=== PATIENT | male | born 1965 | race Caucasian/White ===

== ENCOUNTER 2020-08-14 12:52 | Inpatient (IN) | payer SELFPAY ==
[2020-08-14] VITALS (12 sets, daily range): BP systolic 154–233; BP diastolic 100–137; PULSE 70–96; RESP 17–27; TEMP 36.7–36.8; O2SAT 90–97; BMI 32.3
--- NOTE | 2020-08-14 13:18 | ECG_ITS ---
[facility] Test Date: 2020-08-14 Pat Name: Leo Arredondo Department: Room: Gender: Male Machine Crater: : 1965 Requested By: Sheri Smith I Order Number: [id number] Reading MD: EARNEST MEJIA Measurements Intervals [place] Rate: 100 P: WA: QRS: 31 QRSD: 106 T: 65 QT: 403 QTc: 521 Interpretive Statements SINUS TACHYCARDIA INCOMPLETE RIGHT BUNDLE BRANCH BLOCK [90+ ms QRS DURATION, TERMINAL R IN V1/V2, 40+ ms S IN I/aVL/V4/V5/V6] NONSPECIFIC ST ELEVATION [0.05+ mV ST ELEVATION] ABNORMAL RHYTHM ECG No previous ECG available for comparison Electronically Signed On 08-14-2020 18:35:12 BLANKET WINDER HELPER by EARNEST MEJIA [id number] f
--- NOTE | 2020-08-14 13:18 | XR_ITS ---
WS: [id number] Exam: XR chest 1V portable [id number] Date/Time of Exam: 08/14/2020 1:25 PM Reason For Exam: SOB No priors. There is infiltrate and atelectasis in the right lower lung zone suggesting pneumonia. There may be s ome infiltrate in the left retrocardiac region. No pleural effusions or pneumothorax. Normal cardiome diastinal structures and bony elements. XR/XR chest 1V portable [id number] IMPRESSION: 1. Infiltrate and atelectasis in the right lower lung zone suggesting pneumonia . There may also be some infiltrate in the left retrocardiac region.
--- NOTE | 2020-08-14 13:39 | W.ED.SOB ---
HPI - SOB/Dyspnea General: Chief Complaint: Shortness of Breath/Dyspnea Stated Complaint: CP Time Seen by Provider: 08/14/20 13:08 Source: patient and family () Mode of arrival: ambulatory Limitations: no limitations History of Present Illness: HPI Narrative: The patient is a 55-year-old male with no prior medical history who presents to the emergency department with chest pain and shortness of breath. He has had the symptoms going on for about a month but in the last 2 days it has been much worse. He is unable to complete full sentences and has significant orthopnea. He does not go to the doctor and has not seen a physician for a long time. He is here to be evaluated for these. Chest pain is nonradiating. MD elicited complaint: shortness of breath and chest pain Associated symptoms: Reports chest pain; Deny abdominal pain, fever(s), nausea, palpitations, polydipsia, polyuria or vomiting Review of Systems General: Reports: 10 or more systems reviewed and unremarkable except in HPI and below Const: Denies: fever(s), chills or body aches Eyes: Denies: change in vision or blurry vision ENMT: Denies: throat pain, enlarged tonsils, odynophagia, hoarseness, mouth pain or swelling of lips/tongue Card: Reports: chest pain; Denies: palpitations, irregular heart rhythm, edema or swelling of feet/ankles Resp: Reports: dyspnea; Denies: productive cough or non-productive cough GI: Denies: abdominal pain, nausea or vomiting : Denies: flank pain, dysuria, urinary frequency, urinary urgency or urinary hesitancy Musc: Denies: neck pain, back pain or extremity swelling Skin/Breast: Denies: rash, pruritus or erythema Neuro: Denies: headache(s), numbness in extremities or weakness in extremities Endo: Denies: polyuria, polydipsia or tired all the time Physical Exam Const: COMMON NORMALS: no acute distress, average body habitus, patient oriented x3, no limitations, healthy appearing, alert and well nourished HENMT: COMMON NORMALS: normocephalic, atraumatic and moist oral mucous membranes HEAD & SCALP: normocephalic and atraumatic Neck/C-Spine: COMMON NORMALS: no meningeal signs and no JVD Resp: COMMON NORMALS: No retractions, No use of accessory muscles and percussion normal EFFORT & INSPECTION: Yes tachypneic and Yes labored AUSCULTATION: rales and diminished lung sounds PERCUSSION: percussion normal Cardio: COMMON NORMALS: no JVD, regular rhythm, S1 normal heart sound present, S2 normal heart sound present, No gallops present (Cardio), No clicks present (Cardio), No rub (Cardio) and Peripheral pulses 2+ throughout RATE: tachycardic RHYTHM: regular rhythm HEART SOUNDS: S1 normal heart sound present and S2 normal heart sound present PERIPHERAL PULSES: Peripheral pulses 2+ throughout GI: COMMON NORMALS: Normal to inspection, nondistended, normoactive bowel sounds present, Soft to palpation, non-tender, No hepatosplenomegaly present, no masses and no bruits PALPATION: Yes Soft to palpation and Yes No hepatosplenomegaly present Extremity: COMMON NORMALS: normal to inspection, full ROM, capillary refill normal, no calf tenderness and no pedal edema Neuro: COMMON NORMALS: patient oriented x3 SENSORIUM/ORIENTATION: Yes alert MENINGEAL SIGNS: Yes no meningeal signs Skin: COMMON NORMALS: no rashes or lesions noted, no wounds, turgor normal, no jaundice, no petechiae and no mottling GENERAL SKIN EXAM: no rashes or lesions noted and turgor normal Course Reevaluation(s): Reevaluation #1: Discussed his lab and imaging findings with him. Also discussed that he has CHF and since this is a new diagnosis I advised that he be admitted to the hospital for further work-up and evaluation of his cardiac status including an echocardiogram. Patient and his voiced understanding and they are in agreement with the plan. Time: 19:00 Consultations: Consultation #1: Discussed the patient with Dr. Echevarria, hospitalist and he kindly accepted patient to his service. Time: 19:30 Vital Signs: Vital signs: Vital Signs Temperature 98.3 F 08/14/20 21:25 Pulse Rate 85 08/14/20 21:25 Respiratory Rate 27 H 08/14/20 21:25 Blood Pressure 177/111 08/14/20 21:25 Pulse Oximetry 91 08/14/20 21:25 MDM - SOB/Dyspnea MDM Narrative: Medical decision making narrative: This pleasant gentleman presents with his to the emergency department with complaints of significant shortness of breath and chest pain. He has no prior past medical history and on evaluation in the emergency department he is diagnosed with congestive heart failure. He had severely elevated blood pressures, significantly elevated proBNP and chest x-ray findings consistent with CHF. He was given a dose of intravenous furosemide as well as potassium chloride as he had mildly depressed potassium. He is admitted to the cardiac stepdown unit for further evaluation and management. Medical Records: Attestation: I reviewed the patient's medical records. Lab Data: Attestation: I reviewed the patient's lab results. Labs: Lab Results 08/14/20 08/14/20 08/14/20 Range/Units 13:21 13:21 13:21 WBC 9.0 (4.0-10.0) 10^3/ uL RBC 4.84 (4.1-5.3) 10^6/u L Hgb 13.7 (11.7-16.6) g/dL Hct 40.7 L (42.0-52.0) % MCV 84.1 (80-94) fL MCH 28.3 (28.0-34.0) pg MCHC 33.7 (30.0-36.0) g/dL RDW 13.3 (12.1-15.1) % Plt Count 207 (130-400) 10^3/c mm MPV 11.8 H (7.4-10.4) fL Neut % (Auto) 75.8 % Lymph % (Auto) 16.6 % [place] % (Auto) 5.8 % Eos % (Auto) 1.0 % Baso % (Auto) 0.4 % Neut # (Auto) 6.85 (1.8-7.7) 10^3/u L Lymph # (Auto) 1.5 (0.8-4.8) 10^3/u L [place] # (Auto) 0.5 (0.2-0.9) 10^3/u L Eos # (Auto) 0.1 (0.0-0.8) 10^3/u L Baso # (Auto) 0.0 (0.0-0.1) 10^3/u L Nucleated RBC % (a uto) 0 % Nucleated RBCs # 0.0 /100WBC D-Dimer 0.54 (0-0.59) ug/mIFE U Specimen Type Sample Site ABG pH (7.35-7.45) ABG pCO2 (35-45) mmHg ABG pO2 (80.0-100.0) mmH g ABG HCO3 (22-26) mmol/L ABG Base Excess (-2.0-2.0) mmol/ L Mandeep Test Hematocrit (42-52) % O2 Delivery Device Ski Patrol Officer ID Sodium Cancelled Potassium Cancelled Chloride Cancelled Carbon Dioxide Cancelled Anion Gap Cancelled BUN Cancelled Creatinine Cancelled GFR Calculation Cancelled Glucose Cancelled Calculated Osmolal ity Cancelled Calcium Cancelled Total Bilirubin Cancelled AST Cancelled ALT Cancelled Alkaline Phosphata se Cancelled Troponin T Baselin e (0-15) ng/L Troponin T 120 Min [place] (0-15) ng/L Delta Troponin T (0-10) ABS# Troponin T Hi Sens 6Hr (0-15) ng/L Troponin T Hi Sens 6Hr Delta (0-12) ng/L NT-Pro-B Natriuret Pep Cancelled Total Protein Cancelled Albumin Cancelled Globulin Cancelled 08/14/20 08/14/20 08/14/20 Range/Units 13:21 14:15 15:32 WBC (4.0-10.0) 10^3/ uL RBC (4.1-5.3) 10^6/u L Hgb (11.7-16.6) g/dL Hct (42.0-52.0) % MCV (80-94) fL MCH (28.0-34.0) pg MCHC (30.0-36.0) g/dL RDW (12.1-15.1) % Plt Count (130-400) 10^3/c mm MPV (7.4-10.4) fL Neut % (Auto) % Lymph % (Auto) % [place] % (Auto) % Eos % (Auto) % Baso % (Auto) % Neut # (Auto) (1.8-7.7) 10^3/u L Lymph # (Auto) (0.8-4.8) 10^3/u L [place] # (Auto) (0.2-0.9) 10^3/u L Eos # (Auto) (0.0-0.8) 10^3/u L Baso # (Auto) (0.0-0.1) 10^3/u L Nucleated RBC % (a uto) % Nucleated RBCs # /100WBC D-Dimer (0-0.59) ug/mIFE U Specimen Type Arterial Sample Site Radial, left ABG pH 7.50 H (7.35-7.45) ABG pCO2 40.9 (35-45) mmHg ABG pO2 59.3 L (80.0-100.0) mmH g ABG HCO3 32.0 H (22-26) mmol/L ABG Base Excess 8.1 H (-2.0-2.0) mmol/ L Mandeep Test Pos Hematocrit 42.5 (42-52) % O2 Delivery Device Room air Ski Patrol Officer ID jmn Sodium 138 Potassium 3.1 L Chloride 99 Carbon Dioxide 31 H Anion Gap 11.1 BUN 19 Creatinine 1.3 H GFR Calculation 56.9 L Glucose 185 H Calculated Osmolal ity 293 Calcium 9.1 Total Bilirubin 0.4 AST 20 ALT 21 Alkaline Phosphata se 92 Troponin T Baselin e 52 H (0-15) ng/L Troponin T 120 Min [place] (0-15) ng/L Delta Troponin T (0-10) ABS# Troponin T Hi Sens 6Hr (0-15) ng/L Troponin T Hi Sens 6Hr Delta (0-12) ng/L NT-Pro-B Natriuret Pep 6903 H Total Protein 6.3 L Albumin 3.8 Globulin 2.5 08/14/20 08/14/20 Range/Units 15:48 19:34 WBC (4.0-10.0) 10^3/ uL RBC (4.1-5.3) 10^6/u L Hgb (11.7-16.6) g/dL Hct (42.0-52.0) % MCV (80-94) fL MCH (28.0-34.0) pg MCHC (30.0-36.0) g/dL RDW (12.1-15.1) % Plt Count (130-400) 10^3/c mm MPV (7.4-10.4) fL Neut % (Auto) % Lymph % (Auto) % [place] % (Auto) % Eos % (Auto) % Baso % (Auto) % Neut # (Auto) (1.8-7.7) 10^3/u L Lymph # (Auto) (0.8-4.8) 10^3/u L [place] # (Auto) (0.2-0.9) 10^3/u L Eos # (Auto) (0.0-0.8) 10^3/u L Baso # (Auto) (0.0-0.1) 10^3/u L Nucleated RBC % (a uto) % Nucleated RBCs # /100WBC D-Dimer (0-0.59) ug/mIFE U Specimen Type Sample Site ABG pH (7.35-7.45) ABG pCO2 (35-45) mmHg ABG pO2 (80.0-100.0) mmH g ABG HCO3 (22-26) mmol/L ABG Base Excess (-2.0-2.0) mmol/ L Mandeep Test Hematocrit (42-52) % O2 Delivery Device Ski Patrol Officer ID Sodium Potassium Chloride Carbon Dioxide Anion Gap BUN Creatinine GFR Calculation Glucose Calculated Osmolal ity Calcium Total Bilirubin AST ALT Alkaline Phosphata se Troponin T Baselin e (0-15) ng/L Troponin T 120 Min [place] 47.23 H (0-15) ng/L Delta Troponin T -4.77 L (0-10) ABS# Troponin T Hi Sens 6Hr 60.93 H (0-15) ng/L Troponin T Hi Sens 6Hr Delta 8.93 (0-12) ng/L NT-Pro-B Natriuret Pep Total Protein Albumin Globulin Imaging Data^: CXR: Attestation: I personally reviewed and interpreted this imaging study as follows: Radiologist's impression: [address] [address] XRay Report Signed Patient: Leo Arredondo #: [id number] : 1965Acct#:[id number] Age/Sex: 55 / MADM Date: 08/14/20 Loc: ERRoom/Bed: Attending Dr: Ordering Provider/Ordering MD: Sheri Smith MD, [facility] Date of Service: 08/14/20 Procedure(s): XR chest 1V portable [id number] Accession Number(s): [id number] Report Number: [id number] WS: [id number] Exam: XR chest 1V portable [id number] Date/Time of Exam: 08/14/2020 1:25 PM Reason For Exam: SOB No priors. There is infiltrate and atelectasis in the right lower lung zone suggesting pneumonia. There may be some infiltrate in the left retrocardiac region. No pleural effusions or pneumothorax. Normal cardiomediastinal structures and bony elements. XR/XR chest 1V portable [id number] IMPRESSION: 1. Infiltrate and atelectasis in the right lower lung zone suggesting pneumonia. There may also be some infiltrate in the left retrocardiac region. Dictated By:John Lamar DO Signed By:Jayna Bess Date/Time:08/14/20 1343 DD/ 1341 EKG Data^: EKG 1: Attestation: I personally reviewed and interpreted this EKG as follows: EKG Interpretation Date: 08/14/20 EKG interpretation time: 13:05 Prior EKG tracings: not available for review Interpretation: Atrial fibrillation with RVR. Heart rate 100 bpm. Incomplete right bundle branch block. No ST changes. EKG 2: Attestation: I personally reviewed and interpreted this EKG as follows: EKG Interpretation Date: 08/14/20 EKG interpretation time: 15:25 Prior EKG tracings: available for review Interpretation: Junctional rhythm. Heart rate [address] changes. Discharge Plan Discharge Patient Disposition: Admitted As Inpatient Admit Provider: Rajiv Echevarria Clinical Impression: New onset of congestive heart failure, Hypertensive urgency, Elevated troponin Condition: Stable Coding Level of Care Code ED Gang Punch Operator for Chg Fwd Exam Comprehensive
[2020-08-14 13:45] LABS: Basophils % 0.4 %; Eosinophils # 0.1 10^3/uL (0.0-0.8); Hematocrit 40.7 % (42.0-52.0); Hemoglobin 13.7 g/dL (11.7-16.6); Lymphocytes # 1.5 10^3/uL (0.8-4.8); Lymphocytes % 16.6 %; Mean Corpuscular HGB Conc 33.7 g/dL (30.0-36.0); Mean Corpuscular Hemoglobin 28.3 pg (28.0-34.0); Mean Corpuscular Volume 84.1 fL (80-94); Mean Platelet Volume 11.8 fL (7.4-10.4); Monocytes # 0.5 10^3/uL (0.2-0.9); Monocytes % 5.8 %; Neutrophils # 6.85 10^3/uL (1.8-7.7); Neutrophils % 75.8 %; Nucleated Red Blood Cells % 0 %; Platelet Count 207 10^3/cmm (130-400); Red Blood Count 4.84 10^6/uL (4.1-5.3); Red Cell Distribution Width 13.3 % (12.1-15.1)
[2020-08-14] MEDS: aspirin 81 mg Chew Tablet 324 MG PO (13:51)
[2020-08-14] MEDS: nitroglycerin 1 gm/inch oint Pkt 1 INCH TOPICAL (13:52)
[2020-08-14 14:11] LABS: Troponin(5th) Baseline 52 ng/L (0-15)
[2020-08-14 14:26] LABS: ABG PCO2 40.9 mmHg (35-45); Arterial Blood Gas Hematocrit 42.5 % (42-52); Base Excess ABG 8.1 mmol/L (-2.0-2.0); Blood Gas Allen Test Pos; Blood Gas Sample Type Arterial; PO2 ABG 59.3 mmHg (80.0-100.0)
[2020-08-14 14:28] LABS: Blood Gas Sample Site Radial, left; Oxygen Device ROOM AIR
--- NOTE | 2020-08-14 15:18 | ECG_ITS ---
[facility] Test Date: 2020-08-14 Pat Name: Leo Arredondo Department: Room: Gender: Male Direct Marketing Executive: : 1965 Requested By: Sheri Smith I Order Number: [id number] Reading MD: EARNEST MEJIA Measurements Intervals [place] Rate: 86 P: -79 IA: 124 QRS: -6 QRSD: 101 T: 71 QT: 443 QTc: 530 Interpretive Statements JUNCTIONAL RHYTHM WITH OCCASIONAL SUPRAVENTRICULAR PREMATURE COMPLEXES POSSIBLE RIGHT VENTRICULAR CONDUCTION DELAY [RSR (QR) IN V1/V2] PROLONGED QT INTERVAL Compared to ECG 08/14/2020 13:05:07 Junctional rhythm now present Prolonged QT interval now present Atrial fibrillation no longer present Incomplete right bundle-branch block no longer present ST (T wave) deviation no longer present Electronically Signed On 08-14-2020 18:37:47 HARD ROCK MINER BLASTING by EARNEST MEJIA [id number]
[2020-08-14] MEDS: morphine 4 mg/mL SDV 1 mL IVP (16:27)
[2020-08-14] MEDS: ondansetron 2 mg/ML SDV 2 mL 4 MG IVP (16:28)
[2020-08-14 16:49] LABS: Alanine Aminotransferase 21 U/L (0-41); Albumin Level 3.8 g/dL (3.5-5.2); Alkaline Phosphatase 92 IU/L (40-130); Anion Gap 11.1 (5-19); Aspartate Amino Transferase 20 U/L (0-40); Blood Urea Nitrogen 19 mg/dL (6-20); Calcium 9.1 mg/dL (8.5-10.5); Carbon Dioxide 31 mmol/L (22-29); Chloride 99 mmol/L (98-107); Globulin 2.5 g/dL (1.3-4.6); Glomerular Filtration Rate 56.9 mL/min (90-130); Glucose 185 mg/dL (65-115); NT Pro B Type Natriuretic Pept 6903 pg/mL (0-125); Osmolality Calculated 293 mOsm/kg (285-295); Potassium 3.1 mmol/L (3.5-5.1); Sodium 138 mmol/L (136-145); Total Bilirubin 0.4 mg/dL (0.15-1.2); Total Protein 6.3 g/dL (6.6-8.7)
[2020-08-14 17:18] LABS: Troponin 5 2HR 47.23 ng/L (0-15)
[2020-08-14 17:30] LABS: Troponin 5 2HR Delta -4.77 ABS# (0-10)
[2020-08-14 18:29] LABS: D Dimer 0.54 ug/mIFEU (0-0.59)
--- NOTE | 2020-08-14 18:43 | PC.NURSE ---
EKG completed in triage.
[2020-08-14] MEDS: FUROsemide 10 mg/mL SDV 10mL 80 MG IVP (18:53)
--- NOTE | 2020-08-14 19:18 | ECG_ITS ---
[facility] Test Date: 2020-08-14 Pat Name: Leo Arredondo Department: Room: 111 Gender: Male Medical Office Clerk: : 1965 Requested By: Sheri Smith I Order Number: [id number] Jayant MD: Tomer Garcia M.D. Measurements Intervals [place] Rate: 88 P: 70 DC: 150 QRS: 22 QRSD: 97 T: 70 QT: 382 QTc: 463 Interpretive Statements SINUS RHYTHM WITH OCCASIONAL SUPRAVENTRICULAR PREMATURE COMPLEXES INCOMPLETE RIGHT BUNDLE BRANCH BLOCK [90+ ms QRS DURATION, TERMINAL R IN V1/V2, 40+ ms S IN I/aVL/V4/V5/V6] NONSPECIFIC T-WAVE ABNORMALITY Compared to ECG 08/14/2020 15:25:13 Incomplete right bundle-branch block now present T-wave abnormality now present Junctional rhythm no longer present Prolonged QT interval no longer present Electronically Signed On 08-15-2020 17:15:12 ASIC ENGINEER by Tomer Garcia M.D. [id number]
--- NOTE | 2020-08-14 19:34 | P.HP_ITS ---
Providers/Chief Complaint Chief Complaint: CP History of Present Illness Leo Arredondo is a 55 year old male who does not have any significant past medical history presented today with chief complaint of worsening shortness of breath. Patient is stating that his shortness of breath started worsening about 2 to 3 months ago, it has gradually gotten worse to the point of orthopnea and PND, he has not observed his weight but thinks he is more bloated and gained some fluid weight, he did not experience any chest pain, fever, productive cough recent diarrhea. He does not follow a typical diet. Has not seen a PCP in a long time, does not take any medication at home. In last 2 to 3 days his shortness of breath has gotten worse and that is what prompted his visit to the ER. He was saturating well on room air, blood pressure 232/130mmhg, diagnostics in the ER revealed new onset congestive heart failure for which she was given IV Lasix, potassium was repleted in the ER, VERNON noted, ABG showed respiratory alkalosis, no sign of sepsis, chest x-ray shows bilateral vascular congestion, atelectasis of right lung base, pneumonia not ruled out I would request procalcitonin level, holding off on antibiotics, D-dimer unremarkable, EKG showed incomplete right bundle branch block otherwise no ischemic or infarctive changes, troponin with negative delta, when entered the room patient was eating chips, chocolate and diet soda In the ER he received 80 mg of IV Lasix, 1 and topical nitroglycerin, Zofran 4 mg by the time I saw him he was also getting normal saline, aspirin 324 mg, normal saline was discontinued Review of Systems Const: Denies: fever(s) or chills Eyes: Denies: change in vision ENMT: Denies: throat pain Card: Reports: swelling of feet/ankles, dyspnea on exertion and orthopnea; Denies: chest pain Resp: Reports: dyspnea and non-productive cough GI: Denies: abdominal pain : Denies: flank pain Musc: Reports: muscle cramps; Denies: neck pain Skin/Breast: Denies: lesions Neuro: Denies: headache(s) Psych: Denies: anxiety Endo: Denies: polyuria Momo/Lymph: Denies: easy bruising All/Imm: Denies: urticaria Medications/Allergies Home Medications Medication Instructions Recorded Confirmed Last Taken Type aspirin [Aspir-81] 81 mg PO DAILY@0800 08/14/20 08/14/20 Unknown History gjsqoayjoks-zsgmnlbyqlx-uqoyeu 2 ea PO Q6H PRN 08/14/20 08/14/20 08/13/20 History [Prabha-Ocate Plus Cold (PE)] Allergies Allergy/AdvReac Type Severity Reaction Status Date / Time No Known Allergies Allergy Verified 08/14/20 21:54 PFSH Acute PFSH: Surgical History (Updated 08/14/20 @ 22:22 by Rajiv Echevarria MD) H/O knee surgery Hx laparoscopic cholecystectomy Family History (Updated 08/14/20 @ 22:24 by Rajiv Echevarria MD) Father Family history of premature coronary artery disease age 64 due to [place] Other CAD (coronary artery disease) Social History (Updated 08/14/20 @ 22:24 by Rajiv Echevarria MD) Smoking and tobacco status: heavy tobacco smoker cigarettes [ Other cigarette details: Half pack a day ] Alcohol intake: never Substance/Drug Use: never Household members: significant other Housing: House Vitals/I&O/Wt Last Vital Signs Pulse 85 08/14/20 18:43 Resp 18 08/14/20 18:43 BP 157/108 08/14/20 18:43 Pulse Ox 94 08/14/20 18:43 Weight last 48 hrs Weight 111.13 kg Physical Exam Narrative: EXAM NARRATIVE: Middle-age obese male Appears more than stated age, he was eating chips and chocolate and diet soda when I entered the room No active chest pain or shortness of breath He was saturating well on room air S1, S2 no murmur appreciated Abdomen soft distended bloated central obesity No neurological deficit GCS 15 No acute respite distress, bilateral breath sounds with mild rhonchi at the bases Lower extremity 1+ trace edema bilaterally EOMI, PERRLA Seems to have poor insight, flat affect No skin cellulitis gangrene or ulcer Data : 08/14/20 13:21 08/14/20 15:32 A&P Assessment and plan (1) New onset of congestive heart failure: Status: Acute (2) Hypertensive urgency: Status: Acute (3) Hypokalemia: Status: Acute (4) VERNON (acute kidney injury): Status: Acute Additional A&P Information New onset CHF This most likely is secondary to hypertensive urgency Currently blood pressure 181/119 after getting topical nitroglycerin and 80 mg of IV Lasix in the ER I would reduce mean arterial pressure 25% in next 12 to 16 hours Chest x-ray shows pulmonary edema, right lower lobe atelectasis, pneumonia has not been ruled out, will request procalcitonin level hold off on antibiotics, He is Lasix na?ve, would use 40 mg of Lasix daily Echo in the morning, obtain lipid panel, TSH and A1c level EKG showing incomplete right bundle branch block no ischemic or infarctive changes negative delta troponin Hypertensive urgency Mean arterial pressure reduction 25% on day 1 Currently blood pressure responding very well to Lasix and topical nitroglycerin Monitor on telemetry floor if he will require any infusion No active chest pain, D-dimer unremarkable Acute kidney injury Most likely is cardiorenal in nature anticipating improvement with diuresis no signs of dysuria or urine retention Avoid CALIXTO inhibitor for now Hypokalemia with hypertension I will get renin/aldosterone ratio patient does not take any medications at home, no recent diarrhea or vomiting Denies daily alcohol use Full code Cardiac diet DVT prophylaxis Heparin Attestations Medical Necessity Statement*: Anticipating discharge in less than 48 hours currently need monitoring for CHF new onset Time Spent in Patient Care: (>than 50% of time spent in counselling and/or direct pt care on unit) . 50mins Coding Level of Care Code Acute Corrective And Manual Arts Therapist for Woo [place] Diagnoses New onset of congestive heart failure I50.9 Hypertensive urgency I16.0 Hypokalemia E87.6 VERNON (acute kidney injury) N17.9
[2020-08-14] MEDS: lidocaine 1% 5 ML in potassium chloride premix 100 ML 25 ML IV (19:54)
[2020-08-14] MEDS: sodium chloride 0.9% 1,000 ML 999 ML IV (19:55)
[2020-08-14 20:02] LABS: Troponin 5 6HR 60.93 ng/L (0-15); Troponin 5 6HR Delta 8.93 ng/L (0-12)
--- NOTE | 2020-08-14 21:41 | PC.NURSE ---
Addendum entered by Marisela Egan RN 08/14/20 21:42: Entered on incorrect patient. Original Note: Patient's sister, Maggi, called stating that she was very frustrated that a doctor had not contacted her to let her know the plan and why the patient has not had her procedure yet.
--- NOTE | 2020-08-14 22:13 | PC.NURSE ---
Dr. Echevarria notified of blood pressure of 181/119, patient is still complaining of shortness of breath, and is asking for Tylenol for a headache. Patient's oxygen saturation is currently 95 % on room air.
[2020-08-14 22:48] LABS: Estmated Average Glucose 117; Hemoglobin A1C 5.7 % (4.0-6.0)
[2020-08-14] MEDS: amlodipine 10 mg Tablet PO (22:50)
[2020-08-14] MEDS: heparin 5,000 unit/mL INJ 1 mL 5000 UNIT SUBCUT (22:50)
[2020-08-14] MEDS: acetaminophen 325 mg Tablet PO (22:50)
[2020-08-14] MEDS: nitroglycerin 1 gm/inch oint Pkt 0.5 INCH TOPICAL (22:51)
[2020-08-14 23:13] LABS: Chol HDL Ratio 4.44 mg/dL (1.0-5.00); Cholesterol 142 mg/dL (0-200); HDL Cholesterol 32 mg/dL (60-100); LDL Cholesterol Calculated 77 mg/dL (50-129); LDL HDL Ratio 2.41 RATIO (0.00-3.22); Triglycerides 166 mg/dL (0-150)
[2020-08-14 23:47] LABS: Thyroid Stimulating Hormone 1.97 uIU/mL (0.27-4.20)
[2020-08-15] VITALS (20 sets, daily range): BP systolic 117–174; BP diastolic 87–124; PULSE 74–96; RESP 14–38; TEMP 36.5–37.1; O2SAT 90–95
--- NOTE | 2020-08-15 01:03 | PC.NURSE ---
Patient's oxygen saturation dropped to76 percent while patient was sleeping. Patient was placed on 2 L NC and is now ranging 90-95 percent.
[2020-08-15] MEDS: acetaminophen 325 mg Tablet PO (05:59)
[2020-08-15] MEDS: nitroglycerin 1 gm/inch oint Pkt 0.5 INCH TOPICAL ×2 (06:00→11:08)
[2020-08-15] MEDS: heparin 5,000 unit/mL INJ 1 mL 5000 UNIT SUBCUT ×3 (06:00→21:42)
--- NOTE | 2020-08-15 06:04 | PC.NURSE ---
Medications were late and given under other delay due to answer call lights in other patient rooms.
[2020-08-15 06:05] LABS: Anion Gap 13.5 (5-19); Blood Urea Nitrogen 20 mg/dL (6-20); Calcium 8.8 mg/dL (8.5-10.5); Carbon Dioxide 30 mmol/L (22-29); Chloride 101 mmol/L (98-107); Glomerular Filtration Rate 48.2 mL/min (90-130); Glucose 112 mg/dL (65-115); Osmolality Calculated 295 mOsm/kg (285-295); Potassium 3.5 mmol/L (3.5-5.1); Sodium 141 mmol/L (136-145)
--- NOTE | 2020-08-15 08:00 | PC.NURSE ---
patient resting in bed at this time. assessment performed and charted. call light within reach no needs identified at this time.
--- NOTE | 2020-08-15 08:13 | US_ITS ---
WS: [id number] ULTRASOUND RENAL TECHNIQUE: Ultrasound examination of both kidneys. CLINICAL INFORMATION: ckd COMPARISON: None. FINDINGS: RIGHT: Simple cyst midpole measuring 1.1 x 1.2 x 1.0 cm. 16 x 19 mm nonobstructing renal parenchymal calculus upper pole. Right kidney is normal in size and appearance. Echogenicity: Normal. Cortical thickness: 1.1 cm; Normal. Hydronephrosis: None. Perinephric fluid: None. Right kidney measures: 11.6 cm x 5.4 cm x 5.0 cm. LEFT: Left kidney is normal in size and appearance. Echogenicity: Normal. Cortical thickness: 1.3 cm; Normal. Hydronephrosis: None. Perinephric fluid: None. Left kidney measures: 10.4 cm x 4.3 cm x 3.7 cm. Normal visualized aorta. Bladder is contracted. Prostate measures 3.9 x 4.1 x 3.2 cm US/US renal BI* [id number] IMPRESSION: 1. No hydronephrosis in either kidney. 2. Simple cyst right kidney measuring 3. Prostate measures 3.9 x 4.1 x 3.2 CM. Recommend correlation PSA.
--- NOTE | 2020-08-15 08:14 | CT_ITS ---
WS: [id number] CT CHEST TECHNIQUE: Noncontrast CT of the chest with coronal and sagittal reformatted images. CLINICAL INFORMATION: RLL infiltrate vs pulmonary edema COMPARISON: None. DLP: 982.[address] scans at [facility] use at least one of these dose optimization techniques: automat ed exposure control; mA and/or kV adjustment per patient size (includes targeted exams where dose is matched to clinical indication); or iterative reconstruction. FINDINGS: Small right and tiny left pleural effusion. Compressive atelectasis in the lung bases. No focal conso lidation. A few patchy opacities in right upper lobe. Recommend correlation for pneumonia. Mild inter stitial edema in the right lower lobe. Cardiomegaly. Prominent anterior mediastinal and hilar lymph nodes nonspecific but likely reactive. C alcified right hilar nodes. No axillary lymphadenopathy. Anterior hypertrophic changes thoracic spine . Adrenal glands are normal. Cholecystectomy clips. Partially visualized right renal calculus. CT/CT chest wo con [id number] IMPRESSION: 1. Small right and tiny left pleural effusions with compressive atelectasis in the lung bases. Mild interstitial edema in the right greater than left lower l obes. 2. A few small patchy opacities in the right upper lobe. Recommend correlation for pneumonitis. No focal consolidation. 3. Cardiomegaly. 4. Slightly enlarged anterior mediastinal and hilar lymph nodes nonspecific bu t likely reactive. Calcified hilar nodes.
[2020-08-15] MEDS: aspirin 81 mg EC Tablet PO (08:50)
[2020-08-15] MEDS: metoprolol tartrate 25 mg Tablet PO ×2 (08:50→21:42)
[2020-08-15] MEDS: FUROsemide 10 mg/mL SDV 4mL 40 MG IVP ×2 (08:50→21:42)
[2020-08-15] MEDS: amlodipine 10 mg Tablet PO (08:50)
[2020-08-15] MEDS: potassium chloride ER 20 mEq Tablet 40 MEQ PO (08:50)
[2020-08-15] MEDS: atorvastatin 40 mg Tablet PO (08:50)
--- NOTE | 2020-08-15 08:50 | PC.NURSE ---
patient requested more water, patient educated about the dr starting a fluid restriction today. patient verbalized an understanding.
--- NOTE | 2020-08-15 09:06 | PC.CHAP ---
Pastoral Care Encounter/Spiritual Assessment Type of Contact [] Declined fence installer helper visit [] Patient/Family/Request visit [] Outpatient visit [] Follow-up visit [] Physician referral [] Code/Alert [x] Routine visit [] Staff referral [] Actively dying [x] Patient sleeping [] Family support [] [] Out of room [] Palliative care [] [] Receiving care in room [] Pre-surgical visit [] Trauma [] Long length of stay [] ICU visit [] Other: Relational/Emotional Strength [] Patient feels connected with others/family/visitors/staff [] Distress [] Loneliness/isolation [] Abandonment Spirituality of Patient [] Person of Bonnie [] Attends Rastafarian of their Bonnie [] Believes in Prayer [] Reads Bible or Adventist materials [] There are Spiritual issues to be addressed Fender Mechanic Interventions [x] Prayer [] Active listening [] Non-anxious presence [] Spiritual/emotional support [] Crisis/trauma care [] Spiritual counseling [] Bereavement support [] Provided bereavement packet [] Provided Bible/devotional materials [] Provided toy/stuffed animal, coloring book to patient or family member [] Provided Communion [] Anointing/Emmaus [] Salvation [x] Completed spiritual assessment [] Other: Impact on Illness or Injury [] Angry [] Fearful [] Anxious [] Often cries [] Exhaustion [] Unable to work [] Unable to attend holiness [] Unable to walk/stand [] Unable to read [] Unable to drive [] Unable to eat/drink [] Unable to sleep [] Unable to be with family [] Patient intubated [] Other: Summary Time spent with patient
[2020-08-15] MEDS: cefTRIAXone 1,000 MG in sodium chloride 0.9% (plus) 50 ML 100 MG IV (09:12)
[2020-08-15] MEDS: pneumococcal (23 valent) SDV 0.5 mL IM (09:18)
[2020-08-15] MEDS: tamsulosin 0.4 mg Capsule PO (09:21)
[2020-08-15] MEDS: azithromycin 500 MG in sodium chloride 0.9% 250 ML 250 MG IV (09:51)
[2020-08-15] MEDS: ipratropium-albuterol 3 mL Neb INHALATION ×2 (10:08→14:28)
[2020-08-15 11:23] LABS: SARS Covid-2 Antigen Negative (Negative)
--- NOTE | 2020-08-15 12:00 | P.PN_ITS ---
Subjective Subjective: Interval history: Patient was examined this morning, he tells me that he has not seen a physician in many years, he lives out in [place], he tells me that he has a history of hypertension, but has not taken any medications, no history of CAD, no history of strokes, no history of of COPD, but does smoke, tells me that his breathing has improved, Vitals/I&O/Wt Last Vital Signs Temp 97.7 F 08/15/20 08:00 Pulse 76 08/15/20 10:13 Resp 14 08/15/20 10:13 BP 174/102 08/15/20 08:00 Pulse Ox 95 08/15/20 10:13 08/14/20 08/15/20 08/15/20 22:59 06:59 14:59 Intake Total 1000 / 1000 101.667 / 1101.667 50 / 50 Output Total 800 / 800 Balance 200 / 200 101.667 / 301.667 50 / 50 Weight last 48 hrs Weight 111.13 kg Physical Exam Const: COMMON NORMALS: no acute distress and patient oriented x3 HENMT: COMMON NORMALS: normocephalic HEAD & SCALP: normocephalic Neck/C-Spine: COMMON NORMALS: no JVD Resp: COMMON NORMALS: normal respiratory effort, No retractions and No use of accessory muscles AUSCULTATION: crackles Cardio: COMMON NORMALS: no JVD, regular rate, regular rhythm, S1 normal heart sound present and S2 normal heart sound present RATE: regular rate RHYTHM: regular rhythm HEART SOUNDS: S1 normal heart sound present and S2 normal heart sound present GI: COMMON NORMALS: Normal to inspection, nondistended, normoactive bowel sounds present, Soft to palpation, non-tender, No hepatosplenomegaly present, no masses and no bruits PALPATION: Yes Soft to palpation and Yes No hepatosplenomegaly present Extremity: COMMON NORMALS: capillary refill normal, no clubbing, cyanosis or edema, no calf tenderness and no pedal edema Neuro: COMMON NORMALS: patient oriented x3 Psych: COMMON NORMALS: mental status grossly normal Data : 08/14/20 13:21 08/15/20 04:30 Micro: Microbiology 08/15/20 09:47 Blood Culture - Preliminary Blood SPECIMEN COLLECTED 08/15/20 09:54 Blood Culture - Preliminary Blood SPECIMEN COLLECTED A&P Assessment and plan (1) Acute respiratory failure with hypoxia: -Likely related to new onset CHF, pulmonary edema, COPD, possible right lower lobe pneumonia -Chest x-ray shows right lower lobe infiltrates -BNP is over 6000 -Smoker Plan: -Admit to cardiac stepdown unit -Fluid restrictions, strict I's and O's -Lasix 40 mg IV twice daily, potassium replacement -Oxygen therapy, currently on 2 L -Cardiac echocardiogram ordered -We will order CT of the chest -For now continue Rocephin and azithromycin -Advair, albuterol, prednisone 40 mg daily -Sputum cultures, blood cultures, urine bacterial antigens -Heparin for DVT prophylaxis -Full code -Cardiac diet Status: Acute (2) New onset of congestive heart failure: -Nonischemic versus ischemic -Troponins are elevated, but negative delta -Does have hypertensive urgency, longstanding hypertension noncompliant with medications -Echocardiogram pending -Lasix as above -We will need to follow with cardiology at some point Status: Acute (3) Hypertensive urgency: -Continue Norvasc 10 mg daily -Metoprolol 25 mg twice daily -Start clonidine 0.1 twice daily -I am avoiding nephrotoxic agents to monitor creatinine Status: Acute (4) Hypokalemia: -Hypertension with hypokalemia -Renin activity, aldosterone level pending -Renal ultrasound pending Status: Acute (5) VERNON (acute kidney injury): -Creatinine 1.5, baseline unknown -Likely hypertensive nephropathy and or cardiorenal syndrome -Monitor urine output, treat creatinine with Lasix Status: Acute (6) BPH (benign prostatic hyperplasia): Renal ultrasound, PSA, start Flomax Status: Acute (7) COPD (chronic obstructive pulmonary disease): Current smoker Status: Acute (8) NSTEMI (non-ST elevated myocardial infarction): -6-hour 60.93, delta 8.93 -No active chest pain complaints -EKG no acute ST-T wave changes, incomplete RBBB Plan: -Aspirin, statin, beta-giovana -Cardiac echocardiogram ordered -Telemetry monitoring Status: Acute Additional A&P Information Acute kidney injury Most likely is cardiorenal in nature anticipating improvement with diuresis no signs of dysuria or urine retention Avoid CALIXTO inhibitor for now Hypokalemia with hypertension I will get renin/aldosterone ratio patient does not take any medications at [facility], no recent diarrhea or vomiting Denies daily alcohol use Full code Cardiac diet DVT prophylaxis Heparin Attestations Medical Necessity Statement*: Patient requires hospitalization for acute respiratory failure secondary to CHF, COPD, right lower lobe pneumonia Coding Level of Care Code Acute Keg Raiser for Chg Fwd Diagnoses Acute respiratory failure with hypoxia J96.01 New onset of congestive heart failure I50.9 Hypertensive urgency I16.0 Hypokalemia E87.6 VERNON (acute kidney injury) N17.9 BPH (benign prostatic hyperplasia) N40.0 COPD (chronic obstructive pulmonary disease) J44.9 NSTEMI (non-ST elevated myocardial infarction) I21.4
[2020-08-15] MEDS: cloNIDine 0.1 mg Tablet PO ×2 (12:32→21:42)
[2020-08-15] MEDS: predniSONE 20 mg Tablet 40 MG PO (12:32)
[2020-08-15 12:34] LABS: Prostate Specific Antigen 0.422 ng/mL (0-4)
--- NOTE | 2020-08-15 17:32 | PC.NURSE ---
Dr. Lee notified that patient and family wanted to talk to him about results of CT scan.
--- NOTE | 2020-08-15 22:13 | USCV_ITS ---
Leo Arredondo Age: 55 Gender: M : 1965 Exam Date: 08/15/2020 07:48 Ordering Phys: Rajiv Echevarria MD Technologist: William Chavez Exam Location: [facility] – [place] Indication: CHEST PAIN BP: 124 / 80 HR: 83 Rhythm: Sinus Technical Quality: Fair MEASUREMENTS (Male / Female) Normal Values 2D ECHO LV Diastolic Diameter PLAX 6.1 cm 4.2 - 5.9 / 3.9 - 5.3 cm LV Systolic Diameter PLAX 3.8 cm IVS Diastolic Thickness 1.3 cm 0.6 - 1.0 / 0.6 - 0.9 cm IVS Systolic Thickness 1.7 cm LVPW Diastolic Thickness 1.4 cm 0.6 - 1.0 / 0.6 - 0.9 cm LVPW Systolic Thickness 1.9 cm LVOT Diameter 2.5 cm LV Ejection Fraction 2D Teich 66.0 % LV Ejection Fraction MOD 2C 65.2 % LV Ejection Fraction 2C AL 65.3 % LA Diameter 4.4 cm LA Width 5.4 cm LA Height 6.1 cm RA Width 4.2 cm RA Height 5.6 cm M-MODE LV Diastolic Diameter MM 6.3 cm 4.2 - 5.9 / 3.9 - 5.3 cm LV Systolic Diameter MM 3.9 cm LV Ejection Fraction MM Teich 66.3 % IVS Diastolic Thickness MM 1.1 cm 0.6 - 1.0 / 0.6 - 0.9 cm IVS Systolic Thickness MM 1.6 cm LVPW Diastolic Thickness MM 1.2 cm 0.6 - 1.0 / 0.6 - 0.9 cm LVPW Systolic Thickness MM 2.5 cm RV Diastolic Diameter MM 1.7 cm Aortic Annulus Diameter 3.5 cm LA Ao Ratio MM 1.3 MV E Point Septal Separation 1.6 cm DOPPLER AV Peak Velocity 121.0 cm/s LVOT Peak Velocity 88.0 cm/s AV Area Cont Eq vti 3.1 cm squared AV Area Cont Eq pk 3.4 cm squared MV Area PHT 5.0 cm squared Mitral E to A Ratio 2.2 MV E' Velocity 52.5 cm/s Mitral E to MV E' Ratio 18.6 Mitral E to LV E' Lateral Ratio 16.2 Mitral E to LV E' Septal Ratio 22.4 TR Peak Velocity 249.0 cm/s TR Peak Gradient 24.8 mmHg TV Peak E Velocity 56.0 cm/s Right Atrial Pressure 3.0 mmHg Pulmonary Artery Systolic Pressu 27.8 mmHg PV Peak Velocity 87.0 cm/s FINDINGS Left Ventricle Normal left ventricular cavity size. Normal left ventricular systolic function. No regional wall motion abnormalities. Left ventricular ejection fraction is estimated at 66 %. Normal diastolic function. Right Ventricle The right ventricle is normal in size and function. Right Atrium The right atrium is normal in size. Left Atrium The left atrium is normal in size. Mitral Valve Moderately thickened mitral valve. No mitral valve stenosis. Mild mitral valve regurgitation. Aortic Valve Moderate aortic valve calcification. No aortic valve stenosis. No aortic valve regurgitation. Tricuspid Valve Structurally normal tricuspid valve without significant stenosis or regurgitation. Pulmonary artery systolic pressure is normal. Pulmonic Valve Structurally normal pulmonic valve without significant stenosis. There is no pulmonic regurgitation. Pericardium Normal pericardium without effusion. Aorta Normal ascending aorta dimension. CONCLUSIONS 1-Normal left ventricular cavity size. Normal left ventricular systolic function. No regional wall motion abnormalities. Left ventricular ejection fraction is estimated at 66 %. Normal diastolic function. 2-Moderate aortic valve calcification. No aortic valve stenosis. No aortic valve regurgitation. 3-Moderately thickened mitral valve. No mitral valve stenosis. Mild mitral valve regurgitation. 4-There is no pericardial effusion. 5-Pulmonary artery systolic pressure is within normal limits. 6-There are no prior echocardiogram studies to compare. Rajiv Ramirez MD (Electronically Signed) Final Date: 15 August 2020 18:42 S
[2020-08-16] VITALS (18 sets, daily range): BP systolic 128–174; BP diastolic 74–102; PULSE 66–87; RESP 13–25; TEMP 36.5–36.8; O2SAT 94–98
[2020-08-16 05:09] LABS: Basophils % 0.2 %; Eosinophils % 0.1 %; Hematocrit 38.2 % (42.0-52.0); Hemoglobin 12.3 g/dL (11.7-16.6); Lymphocytes # 1.2 10^3/uL (0.8-4.8); Lymphocytes % 9.9 %; Mean Corpuscular HGB Conc 32.2 g/dL (30.0-36.0); Mean Corpuscular Volume 86.8 fL (80-94); Monocytes % 8.4 %; Neutrophils # 9.44 10^3/uL (1.8-7.7); Nucleated Red Blood Cells % 0 %; Platelet Count 190 10^3/cmm (130-400); Red Cell Distribution Width 13.1 % (12.1-15.1); White Blood Count 11.7 10^3/uL (4.0-10.0)
[2020-08-16] MEDS: heparin 5,000 unit/mL INJ 1 mL 5000 UNIT SUBCUT ×3 (05:39→22:17)
[2020-08-16 05:46] LABS: Alanine Aminotransferase 19 U/L (0-41); Albumin Level 3.7 g/dL (3.5-5.2); Alkaline Phosphatase 94 IU/L (40-130); Anion Gap 12.6 (5-19); Aspartate Amino Transferase 18 U/L (0-40); Blood Urea Nitrogen 25 mg/dL (6-20); Calcium 9.1 mg/dL (8.5-10.5); Carbon Dioxide 30 mmol/L (22-29); Chloride 101 mmol/L (98-107); Glomerular Filtration Rate 44.8 mL/min (90-130); Glucose 141 mg/dL (65-115); Magnesium 2.1 mg/dL (1.7-2.3); NT Pro B Type Natriuretic Pept 4262 pg/mL (0-125); Osmolality Calculated 297 mOsm/kg (285-295); Phosphorus 2.8 mg/dL (2.5-4.5); Potassium 3.6 mmol/L (3.5-5.1); Sodium 140 mmol/L (136-145); Total Bilirubin 0.4 mg/dL (0.15-1.2); Total Protein 6.7 g/dL (6.6-8.7)
--- NOTE | 2020-08-16 06:09 | ECG_ITS ---
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 Measurements Intervals [place] Rate: 67 P: 44 NE: 152 QRS: 9 QRSD: 114 T: 85 QT: 424 QTc: 449 Interpretive Statements SINUS RHYTHM INCOMPLETE RIGHT BUNDLE BRANCH BLOCK [90+ ms QRS DURATION, TERMINAL R IN V1/V2, 40+ ms S IN I/aVL/V4/V5/V6] NONSPECIFIC T-WAVE ABNORMALITY Compared to ECG 08/14/2020 21:26:15 No significant changes Electronically Signed On 08-17-2020 18:07:42 ENVIRONMENTAL COORDINATOR by Ariana Lopez M.D. [email or web address]
[2020-08-16] MEDS: ipratropium-albuterol 3 mL Neb INHALATION ×2 (07:52→19:14)
[2020-08-16] MEDS: cefTRIAXone 1,000 MG in sodium chloride 0.9% (plus) 50 ML 100 MG IV (08:47)
[2020-08-16] MEDS: FUROsemide 10 mg/mL SDV 4mL 40 MG IVP (08:47)
[2020-08-16] MEDS: potassium chloride ER 20 mEq Tablet 40 MEQ PO (08:48)
[2020-08-16] MEDS: predniSONE 20 mg Tablet 40 MG PO (08:48)
[2020-08-16] MEDS: aspirin 81 mg EC Tablet PO (08:48)
[2020-08-16] MEDS: cloNIDine 0.1 mg Tablet PO ×2 (08:48→20:46)
[2020-08-16] MEDS: atorvastatin 40 mg Tablet PO (08:48)
[2020-08-16] MEDS: amlodipine 10 mg Tablet PO (08:49)
[2020-08-16] MEDS: tamsulosin 0.4 mg Capsule PO (08:49)
[2020-08-16] MEDS: metoprolol tartrate 25 mg Tablet 37.5 MG PO ×2 (08:50→20:46)
[2020-08-16] MEDS: azithromycin 500 MG in sodium chloride 0.9% 250 ML 250 MG IV (09:21)
--- NOTE | 2020-08-16 10:21 | PC.NURSE ---
patient resting in bed at this time. call light within reach no needs identified.
--- NOTE | 2020-08-16 11:55 | PM.PN ---
Subjective Subjective: Interval history: Patient is doing well this morning, enjoying breakfast, currently on 2 L, he tells me that his breathing has improved, no chest pain, no palpitations Vitals/I&O/Wt Last Vital Signs Temp 97.7 F 08/16/20 07:28 Pulse 79 08/16/20 08:02 Resp 18 08/16/20 07:56 BP 174/86 08/16/20 08:48 Pulse Ox 95 08/16/20 07:56 08/15/20 08/16/20 08/16/20 22:59 06:59 14:59 Intake Total 600 / 1260 150 / 1410 290 / 290 Output Total 1400 / 2000 1600 / 3600 800 / 800 Balance -800 / -740 -1450 / -2190 -510 / -510 Weight last 48 hrs Weight 111.13 kg Physical Exam Const: COMMON NORMALS: no acute distress and patient oriented x3 HENMT: COMMON NORMALS: normocephalic HEAD & SCALP: normocephalic Neck/C-Spine: COMMON NORMALS: no JVD Resp: COMMON NORMALS: normal respiratory effort, No retractions, No use of accessory muscles and clear to auscultation bilaterally AUSCULTATION: clear to auscultation bilaterally Cardio: COMMON NORMALS: no JVD, regular rate, regular rhythm, S1 normal heart sound present and S2 normal heart sound present RATE: regular rate RHYTHM: regular rhythm HEART SOUNDS: S1 normal heart sound present and S2 normal heart sound present GI: COMMON NORMALS: Normal to inspection, nondistended, normoactive bowel sounds present, Soft to palpation, non-tender, No hepatosplenomegaly present, no masses and no bruits PALPATION: Yes Soft to palpation and Yes No hepatosplenomegaly present Extremity: COMMON NORMALS: capillary refill normal, no clubbing, cyanosis or edema, no calf tenderness and no pedal edema Neuro: COMMON NORMALS: patient oriented x3 Psych: COMMON NORMALS: mental status grossly normal Data : 08/16/20 04:15 08/16/20 04:15 Micro: Microbiology 08/15/20 09:47 Blood Culture - Preliminary Blood NEGATIVE TO DATE 08/15/20 09:54 Blood Culture - Preliminary Blood NEGATIVE TO DATE A&P Assessment and plan (1) Acute respiratory failure with hypoxia: -Likely related to new onset CHF, pulmonary edema, COPD, possible right lower lobe pneumonia -Chest x-ray shows right lower lobe infiltrates -BNP is over 6000 -Smoker -Ct chest showed: 1. Small right and tiny left pleural effusions with compressive atelectasis in the lung bases. Mild interstitial edema in the right greater than left lower lobes. 2. A few small patchy opacities in the right upper lobe. Recommend correlation for pneumonitis. No focal consolidation. 3. Cardiomegaly. 4. Slightly enlarged anterior mediastinal and hilar lymph nodes nonspecific but likely reactive. Calcified hilar nodes. cardiac echo: 1-Normal left ventricular cavity size. Normal left ventricular systolic function. No regional wall motion abnormalities. Left ventricular ejection fraction is estimated at 66 %. Normal diastolic function. 2-Moderate aortic valve calcification. No aortic valve stenosis. No aortic valve regurgitation. 3-Moderately thickened mitral valve. No mitral valve stenosis. Mild mitral valve regurgitation. 4-There is no pericardial effusion. 5-Pulmonary artery systolic pressure is within normal limits. Plan: -Admit to cardiac stepdown unit -Fluid restrictions, strict I's and O's -Diuresed over 4 L yesterday, creatinine up to 1.6, received 40 mg of IV Lasix this morning, hold Lasix this evening -Oxygen therapy, currently on 2 L -For now continue Rocephin and azithromycin -Advair, albuterol, prednisone 40 mg daily -Sputum cultures, blood cultures, urine bacterial antigens -Heparin for DVT prophylaxis -Full code -Cardiac diet Status: Acute (2) New onset of congestive heart failure: -Nonischemic versus ischemic -Troponins are elevated, but negative delta -Does have hypertensive urgency, longstanding hypertension noncompliant with medications -EF within normal limits, no significant diastolic dysfunction, no significant regional wall motion abnormalities -Lasix as above -We will need to follow with cardiology at some point Status: Acute (3) Hypertensive urgency: -Continue Norvasc 10 mg daily -Metoprolol 37.5 mg twice daily -Start clonidine 0.1 twice daily -I am avoiding nephrotoxic agents to monitor creatinine Status: Acute (4) Hypokalemia: -Hypertension with hypokalemia -Renin activity, aldosterone level pending -Renal ultrasound pending Status: Acute (5) VERNON (acute kidney injury): -Creatinine 1.5, baseline unknown -Likely hypertensive nephropathy and or cardiorenal syndrome -Monitor urine output, treat creatinine with Lasix Status: Acute (6) BPH (benign prostatic hyperplasia): Renal ultrasound shows enlarged prostate, PSA within normal limits, start Flomax Status: Acute (7) COPD (chronic obstructive pulmonary disease): Current smoker Status: Acute (8) NSTEMI (non-ST elevated myocardial infarction): -6-hour 60.93, delta 8.93 -No active chest pain complaints -EKG no acute ST-T wave changes, incomplete RBBB Plan: -Aspirin, statin, beta-giovana -Cardiac echocardiogram ordered -Telemetry monitoring Status: Acute Additional A&P Information Acute kidney injury Most likely is cardiorenal in nature anticipating improvement with diuresis no signs of dysuria or urine retention Avoid CALIXTO inhibitor for now Hypokalemia with hypertension I will get renin/aldosterone ratio patient does not take any medications at home, no recent diarrhea or vomiting Denies daily alcohol use Full code Cardiac diet DVT prophylaxis Heparin Attestations Medical Necessity Statement*: Patient requires hospitalization for acute respiratory failure secondary to COPD, CHF, pneumonia Coding Level of Care Code Acute Boring Inspector for [facility] Fwd Diagnoses Acute respiratory failure with hypoxia J96.01 New onset of congestive heart failure I50.9 Hypertensive urgency I16.0 Hypokalemia E87.6 VERNON (acute kidney injury) N17.9 BPH (benign prostatic hyperplasia) N40.0 COPD (chronic obstructive pulmonary disease) J44.9 NSTEMI (non-ST elevated myocardial infarction) I21.4
--- NOTE | 2020-08-16 16:07 | PC.RESP ---
Smoking Cessation and Pulmonary Rehab information sent to patient.
--- NOTE | 2020-08-16 17:40 | PC.NURSE ---
patient sitting on the side of the bed eating dinner at this time. patient hooked back up to telemetry and pulse ox. saturation of 95% on room air at this time. call light within reach. no needs identified at this time.
[2020-08-17] VITALS (47 sets, daily range): BP systolic 136–187; BP diastolic 93–116; PULSE 62–93; RESP 10–33; TEMP 36.4–36.6; O2SAT 93–99
--- NOTE | 2020-08-17 04:53 | PC.NURSE ---
NURSE NOTE: SHIFT SUMMARY: PT ALERT AND ORIENTED X4, MOVES ALL EXTREMITIES AND FOLLOWS COMMANDS. DENIES PAIN THIS SHIFT. ALL VS AND ASSESSMENTS CHARTED. RESTING WITH EYES CLOSED ; RESP EVEN AND NON LABORED. NO DISTRESS NOTED AT THIS TIME.
[2020-08-17 05:20] LABS: Basophils % 0.2 %; Eosinophils # 0.1 10^3/uL (0.0-0.8); Eosinophils % 0.6 %; Hematocrit 38.5 % (42.0-52.0); Hemoglobin 12.4 g/dL (11.7-16.6); Lymphocytes # 1.8 10^3/uL (0.8-4.8); Lymphocytes % 16.2 %; Mean Corpuscular HGB Conc 32.2 g/dL (30.0-36.0); Mean Corpuscular Hemoglobin 28.2 pg (28.0-34.0); Mean Corpuscular Volume 87.7 fL (80-94); Mean Platelet Volume 11.8 fL (7.4-10.4); Monocytes # 0.9 10^3/uL (0.2-0.9); Monocytes % 7.7 %; Neutrophils # 8.32 10^3/uL (1.8-7.7); Neutrophils % 74.9 %; Nucleated Red Blood Cells % 0 %; Platelet Count 183 10^3/cmm (130-400); Red Blood Count 4.39 10^6/uL (4.1-5.3); Red Cell Distribution Width 13.3 % (12.1-15.1); White Blood Count 11.1 10^3/uL (4.0-10.0)
[2020-08-17 06:02] LABS: Alanine Aminotransferase 23 U/L (0-41); Albumin Level 3.6 g/dL (3.5-5.2); Alkaline Phosphatase 89 IU/L (40-130); Anion Gap 13.9 (5-19); Aspartate Amino Transferase 19 U/L (0-40); Blood Urea Nitrogen 27 mg/dL (6-20); Calcium 9.3 mg/dL (8.5-10.5); Carbon Dioxide 29 mmol/L (22-29); Chloride 103 mmol/L (98-107); Globulin 3.1 g/dL (1.3-4.6); Glomerular Filtration Rate 48.2 mL/min (90-130); Glucose 109 mg/dL (65-115); Osmolality Calculated 300 mOsm/kg (285-295); Phosphorus 4.3 mg/dL (2.5-4.5); Potassium 3.9 mmol/L (3.5-5.1); Sodium 142 mmol/L (136-145); Total Bilirubin 0.3 mg/dL (0.15-1.2); Total Protein 6.7 g/dL (6.6-8.7)
[2020-08-17] MEDS: heparin 5,000 unit/mL INJ 1 mL 5000 UNIT SUBCUT (06:14)
[2020-08-17 06:18] LABS: NT Pro B Type Natriuretic Pept 3398 pg/mL (0-125)
[2020-08-17] MEDS: ipratropium-albuterol 3 mL Neb INHALATION (08:32)
[2020-08-17] MEDS: predniSONE 20 mg Tablet 40 MG PO (08:35)
[2020-08-17] MEDS: cloNIDine 0.1 mg Tablet PO (08:35)
[2020-08-17] MEDS: cefTRIAXone 1,000 MG in sodium chloride 0.9% (plus) 50 ML 100 MG IV (08:35)
[2020-08-17] MEDS: tamsulosin 0.4 mg Capsule PO (08:35)
[2020-08-17] MEDS: amlodipine 10 mg Tablet PO (08:35)
[2020-08-17] MEDS: aspirin 81 mg EC Tablet PO (08:35)
[2020-08-17] MEDS: atorvastatin 40 mg Tablet PO (08:35)
[2020-08-17] MEDS: lisinopril 20 mg Tablet PO (08:35)
[2020-08-17] MEDS: potassium chloride ER 20 mEq Tablet 40 MEQ PO (08:39)
[2020-08-17] MEDS: FUROsemide 10 mg/mL SDV 4mL 40 MG IVP (08:42)
[2020-08-17] MEDS: azithromycin 500 MG in sodium chloride 0.9% 250 ML 250 MG IV (08:55)
[2020-08-17] MEDS: metoprolol tartrate 25 mg Tablet 37.5 MG PO (09:08)
[2020-08-17] MEDS: polyethylene glycol 3350 Pkt 17 gm PO (10:02)
--- NOTE | 2020-08-17 10:24 | PM.DCS ---
Discharge Providers Date of Admission: 08/16/20 11:55 Date of Discharge: August 17, 2020 Attending Provider at Admission: Rajiv Echevarria MD Attending Provider at Discharge: Reji Lee MD Diagnoses at Discharge Discharge Diagnosis (1) Acute respiratory failure with hypoxia: Status: Acute (2) New onset of congestive heart failure: Status: Acute (3) Hypertensive urgency: Status: Acute (4) Hypokalemia: Status: Acute (5) VERNON (acute kidney injury): Status: Acute (6) BPH (benign prostatic hyperplasia): Status: Acute (7) COPD (chronic obstructive pulmonary disease): Status: Acute (8) NSTEMI (non-ST elevated myocardial infarction): Status: Acute Reason for Visit Reason for Visit: CP Hospital Course Hospital Course This is a 55-year-old male with a past medical history of hypertension, noncompliant with medication, no other significant past medical history who presents to [facility] for shortness of breath Patient was admitted to [facility] for acute respiratory failure with hypoxia secondary to diastolic CHF, pulmonary edema, COPD exacerbation, right lower lobe pneumonia. Patient was admitted to the cardiac stepdown unit, received broad-spectrum antibiotic therapy, steroids, inhaler therapy, diuretic therapy and clinically monitored. Patient was diuresed over 3 L, clinically improved, creatinine on discharge was 1.5. Discharged on Lasix 40 mg daily, with potassium replacement, with instructions to check weight daily, if he gains more than 2 to 3 pounds over a day. He can take an extra 40 mg of Lasix. Follow-up with me in clinic in [place] for a weight check, and blood work. For patient's hypertensive urgency, he required multiple blood pressure medications, blood pressures were well controlled as inpatient. Discharged on metoprolol 37.5 twice daily, Norvasc 10 mg daily, lisinopril 20 mg daily, clonidine 0.1 twice daily, Lasix 40 mg daily. Follow-up in 1 week for a blood pressure check. Patient has chronic kidney disease, creatinine is 1.5. Likely hypertensive. Patient also had high blood pressure with hypokalemia, his renin activity, aldosterone levels are pending. For COPD, discharge albuterol, Advair, instructions to stop smoking. Patient had minimally elevated troponins on admission, 6-hour troponin 60.9 3, delta 8.93, discharged on aspirin, statin, beta-giovana. At some point patient will require a cardiac stress test. Physical Exam Const: COMMON NORMALS: no acute distress and patient oriented x3 HENMT: COMMON NORMALS: normocephalic HEAD & SCALP: normocephalic Neck/C-Spine: COMMON NORMALS: no JVD Resp: COMMON NORMALS: normal respiratory effort, No retractions, No use of accessory muscles and clear to auscultation bilaterally AUSCULTATION: clear to auscultation bilaterally Cardio: COMMON NORMALS: no JVD, regular rate, regular rhythm, S1 normal heart sound present and S2 normal heart sound present RATE: regular rate RHYTHM: regular rhythm HEART SOUNDS: S1 normal heart sound present and S2 normal heart sound present GI: COMMON NORMALS: Normal to inspection, nondistended, normoactive bowel sounds present, Soft to palpation, non-tender, No hepatosplenomegaly present, no masses and no bruits PALPATION: Yes Soft to palpation and Yes No hepatosplenomegaly present Extremity: COMMON NORMALS: capillary refill normal, no clubbing, cyanosis or edema, no calf tenderness and no pedal edema Neuro: COMMON NORMALS: patient oriented x3 Psych: COMMON NORMALS: mental status grossly normal Discharge Data Data Completed and Pending: Completed Studies During Hospitalization Category Date Time Status CT chest wo con 7 1250 Routine Cat Scan 08/15/20 08:14 Completed XR chest 1V fadi ble [id number] Stat Exams 08/14/20 13:18 Completed CV echo complete* [id number] Routine Ultrasound 08/15/20 22:13 Completed US renal BI* [id number] Routine Ultrasound 08/15/20 08:13 Completed Pending at discharge Category Date Time Status Aldosterone Routi ne Lab 08/14/20 22:29 Received Blood Culture Sta t Lab 08/15/20 09:47 Results Complete Blood Co unt w/Auto AM LABS Lab 08/18/20 04:00 Ordered Comprehensive Met abolic Panel AM LA BS Lab 08/18/20 04:00 Ordered Magnesium AM LABS Lab 08/18/20 04:00 Ordered NT Pro B Type Cindy riuretic Pept QAM Lab 08/18/20 06:00 Ordered Phosphorus AM LAB S Lab 08/18/20 04:00 Ordered Plasma Renin Acti vity LC/MS/MS Rout ine Lab 08/14/20 22:29 Received Sputum Culture an d Gram Stain Stat Lab 08/15/20 08:36 Uncollected Labs from last 24 hours 08/17/20 08/17/20 08/17/20 04:39 04:39 04:39 WBC 11.1 H RBC 4.39 Hgb 12.4 Hct 38.5 L MCV 87.7 MCH 28.2 MCHC 32.2 RDW 13.3 Plt Count 183 MPV 11.8 H Neut % (Auto) 74.9 Lymph % (Auto) 16.2 Andrew % (Auto) 7.7 Eos % (Auto) 0.6 Baso % (Auto) 0.2 Neut # (Auto) 8.32 H Lymph # (Auto) 1.8 Andrew # (Auto) 0.9 Eos # (Auto) 0.1 Baso # (Auto) 0.0 Nucleated RBC % (a uto) 0 Nucleated RBCs # 0.0 Sodium 142 Potassium 3.9 Chloride 103 Carbon Dioxide 29 Anion Gap 13.9 BUN 27 H Creatinine 1.5 H GFR Calculation 48.2 L Glucose 109 Calculated Osmolal ity 300 H Calcium 9.3 Phosphorus 4.3 Magnesium 2.0 Total Bilirubin 0.3 AST 19 ALT 23 Alkaline Phosphata se 89 NT-Pro-B Natriuret Pep 3398 H Total Protein 6.7 Albumin 3.6 Globulin 3.1 Vitals: Last Vital Signs Temp 97.5 F L 08/17/20 07:49 Pulse 93 08/17/20 08:40 Resp 18 08/17/20 08:37 BP 185/116 08/17/20 08:35 Pulse Ox 96 08/17/20 08:37 Discharge Plan Discharge Patient Disposition: Home Condition: Stable Prescriptions: New amlodipine 10 mg Tablet 10 mg PO DAILY 30 Days Qty: 30 RF: 0 fluticasone propion-salmeterol [Advair Diskus] 100-50 mcg/dose Blister With Device 1 ea inhalation BID.RESPIRATORY Qty: 60 RF: 0 prednisone 20 mg Tablet 40 mg PO DAILY 5 Days Qty: 10 RF: 0 metoprolol tartrate 25 mg Tablet 37.5 mg PO BID@0900,2100 30 Days Qty: 90 RF: 0 albuterol sulfate 90 mcg/actuation HFA aerosol inhaler 1 inh inhalation Q6H PRN (Reason: shortness of breath or wheezing) Qty: 18 RF: 0 furosemide [Lasix] 40 mg tablet 40 mg PO DAILY 30 Days Qty: 30 RF: 0 doxycycline hyclate 100 mg tablet 100 mg PO BID 5 Days Qty: 10 RF: 0 atorvastatin 40 mg Tablet 40 mg PO DAILY 30 Days Qty: 30 RF: 0 potassium chloride [Klor-Con M20] 20 mEq Tablet,Er Particles/Crystals 40 meq PO DAILY 30 Days Qty: 30 RF: 0 tamsulosin 0.4 mg Capsule 0.4 mg PO DAILY 30 Days Qty: 30 RF: 0 clonidine HCl 0.1 mg Tablet 0.1 mg PO 0900,2100 30 Days Qty: 60 RF: 0 lisinopril 20 mg Tablet 20 mg PO DAILY 30 Days Qty: 30 RF: 0 Continued aspirin 81 mg Tablet,Delayed Release (Dr/Ec) 81 mg PO DAILY@0800 30 Days Qty: 30 RF: 0 Discontinued Prabha-Chester Plus Cold (PE) 2-7.8-325 mg Tablet, Effervescent 2 ea PO Q6H PRN (Reason: cold/flu symptoms) RF: 0 Discharge Orders: Discharge Order (Routine); Ordered 08/17/20 Ordered By: Reji Lee Referrals: Reji Lee MD [Hospitalist] - 4-7 days (Please set-up an appointment with Dr. Lee in [place] Friday or Friday. Thanks) Activity Restrictions/Additional Instructions: -Take blood pressure medication as prescribed -If you have headache, blurry vision, strokelike symptoms, chest pain, shortness of breath please come back to emergency room -Please weigh yourself daily -If you gain more than 2 to 3 pounds in a day, take an extra 40 mg of Lasix - Discharge Attestations Time Spent in Discharge Care*: less than 30 min Quality Metrics Clinical Quality Measures During this hospital stay, did patient experience: None Coding Level of Care Code Acute Order Builder Loader for Chg Fwd Diagnoses Acute respiratory failure with hypoxia J96.01 New onset of congestive heart failure I50.9 Hypertensive urgency I16.0 Hypokalemia E87.6 VERNON (acute kidney injury) N17.9 BPH (benign prostatic hyperplasia) N40.0 COPD (chronic obstructive pulmonary disease) J44.9 NSTEMI (non-ST elevated myocardial infarction) I21.4
--- NOTE | 2020-08-17 10:29 | PC.NURSE ---
Pt ambulated down the hallways with RT for Home O2 Eval- -Pt does not require home oxygen per RT. Pt maintaining spO2 on room air at 93-94%.
--- NOTE | 2020-08-17 10:35 | PC.NURSE ---
Meds to Bed [facility] pharmacy preference.
--- NOTE | 2020-08-17 11:13 | PC.CHAP ---
Pastoral Care Encounter/Spiritual Assessment Type of Contact [] Declined aluminum pool installer visit [] Patient/Family/Request visit [] Outpatient visit [] Follow-up visit [] Physician referral [] Code/Alert [x] Routine visit [] Staff referral [] Actively dying [] Patient sleeping [] Family support [] [] Out of room [] Palliative care [] [x] Receiving care in room [] Pre-surgical visit [] Trauma [] Long length of stay [] ICU visit [] Other: Relational/Emotional Strength [x] Patient feels connected with others/family/visitors/staff [] Distress [] Loneliness/isolation [] Abandonment Spirituality of Patient [x] Person of Bonnie [] Attends Orthodoxy of their Bonnie [x] Believes in Prayer [] Reads Bible or Protestant materials [] There are Spiritual issues to be addressed Media Consultant Outside Sales Interventions [x] Prayer [x] Active listening [x] Non-anxious presence [x] Spiritual/emotional support [] Crisis/trauma care [x] Spiritual counseling [] Bereavement support [] Provided bereavement packet [] Provided Bible/devotional materials [] Provided toy/stuffed animal, coloring book to patient or family member [] Provided Communion [] Anointing/Jewell [] Salvation [x] Completed spiritual assessment [] Other: Impact on Illness or Injury [] Angry [] Fearful [x] Anxious [] Often cries [] Exhaustion [] Unable to work [] Unable to attend rastafarian [] Unable to walk/stand [] Unable to read [] Unable to drive [] Unable to eat/drink [] Unable to sleep [] Unable to be with family [] Patient intubated [] Other: Summary rercovery from Denise going home has a good attitude Time spent with patient 10 mins
--- NOTE | 2020-08-17 12:14 | PC.NURSE ---
Pharmacist here for discharge medication education
--- NOTE | 2020-08-17 12:30 | DCPLANNER ---
Discharge to home Informed pt to follow-up with his PCP as scheduled. Instructed pt on the importance of taking all his new meds as prescribed. Instructed pt on CHF, pneumonia stoplights and finding ways to quit smoking. Pt verbalizes understanding. Discharge packet provided to pt.
--- NOTE | 2020-08-17 14:40 | PC.NURSE ---
Discharge medication Verified with on pt's new BP med order which is Hydralazine 10 mg Q8H. Received telephone order read back to change and notify pt to take Hydralazine 10 mg twice a day. Call pharmacy regarding the prescription change on Hydralazine.
--- NOTE | 2020-08-17 15:48 | PC.NURSE ---
Called [facility] Pt is here to pick and shovel man his 1 new medication. Instructed Pt to pick it up at [facility] pharmacy. Location provided to pt.
[2020-08-17 20:39] LABS: Plasma Renin Activity LC/MS/MS 6.75 ng/mL/h (0.25-5.82)
--- NOTE | 2020-08-18 16:28 | PC.RESP ---
Smoking Cessation and Pulmonary Rehab information sent to patient.
== END 2020-08-17 12:39 | disposition home or self-care (01) | DRG 280 ==
LOC: ER 13:23 → CSU 22:04
PROVIDERS: Admitting Provider Internal Medicine; Emergency Provider Family Medicine; Visit Provider Family Medicine
DX: I13.0 Hypertensive heart and chronic kidney disease with heart failure and stage 1 through stage 4 chronic kidney disease, or unspecified chronic kidney disease (principal); I50.31 Acute diastolic (congestive) heart failure; I21.A1 Myocardial infarction type 2; J96.01 Acute respiratory failure with hypoxia; J18.9 Pneumonia, unspecified organism; N17.9 Acute kidney failure, unspecified; E87.3 Alkalosis; J44.1 Chronic obstructive pulmonary disease with (acute) exacerbation; J44.0 Chronic obstructive pulmonary disease with (acute) lower respiratory infection; N18.9 Chronic kidney disease, unspecified; I16.0 Hypertensive urgency; I45.10 Unspecified right bundle-branch block; F17.210 Nicotine dependence, cigarettes, uncomplicated; E87.6 Hypokalemia; N40.0 Benign prostatic hyperplasia without lower urinary tract symptoms; I34.0 Nonrheumatic mitral (valve) insufficiency; Z79.82 Long term (current) use of aspirin; Z91.14 Patient's other noncompliance with medication regimen
CPT/HCPCS: 12345; 36415; 36600; 71045; 71250; 76770; 80048; 80053; 80061; 82088; 82803; 83036; 83735; 83880; 84100; 84145; 84153; 84244; 84443; 84484; 85025; 85378; 87040; 87426; 90471; 90686; 90732; 93005; 93306; 94640; 94664; 96372; 99283; G0378; J0456; J0696; J1644; J1940; J2270; J2405; J3480; J7030; J7050; J7512

== ENCOUNTER → 2020-09-14 14:03 | Outpatient (BNVA) | payer SELFPAY | PROVIDERS: Visit Provider Internal Medicine Cardiovascular Disease | DX: I21.4 Non-ST elevation (NSTEMI) myocardial infarction (principal); I50.9 Heart failure, unspecified; I15.9 Secondary hypertension, unspecified | CPT/HCPCS: 80048; 85025 ==

== ENCOUNTER 2022-07-31 13:52 | Inpatient (IN) | payer OTHER, SELFPAY ==
[2022-07-31] VITALS (26 sets, daily range): BP systolic 143–170; BP diastolic 83–105; PULSE 74–83; RESP 16–28; TEMP 36.1–36.8; O2SAT 93–99; BMI 34.9
[2022-07-31 14:02] LABS: Glucose Point of Care > 600 mg/dL (70-110)
--- NOTE | 2022-07-31 14:28 | ED_ITS ---
HPI - General Adult General: Chief complaint: General Medical Stated complaint: High Blood Sugar Time Seen by Provider: 07/31/22 13:58 Source: patient and EMS Mode of arrival: EMS Limitations: no limitations History of Present Illness: This patient was transported brought in from his home by EMS. He states that he returned from his clinic visit this morning where there was some concern about possible diabetes but he did know his blood sugar levels. He states upon returning home he was walking in his yard and he felt like his left leg would not move normally. He is felt like his whole left side seem to be numb. He states that this lasted for several minutes and then his family came to his aid and eventually called EMS. He states he feels totally back to normal at this time. He states he is never had this occur previously. He denied associated headache, difficulty with speech etc. He t akes antihypertensives and has been taking them faithfully. He states he has been eating and drinking normally and no other associated symptoms such as fever cough etc. Associated symptoms: Deny chest pain, dyspnea, headache(s), nausea, rash, palpitations, syncope or vomiting Review of Systems Const: Denies: fever(s) or chills Eyes: Denies: change in vision ENMT: Denies: throat pain, odynophagia, nasal discharge or nasal congestion Card: Denies: chest pain, palpitations, irregular heart rhythm, edema, syncope or pre-syncope Resp: Denies: dyspnea, productive cough or non-productive cough GI: Denies: abdominal pain, nausea, vomiting or diarrhea : Denies: flank pain or difficulty urinating Musc: Denies: neck pain, back pain, extremity pain or extremity swelling Skin/Breast: Denies: rash Neuro: Reports: numbness in extremities and weakness in extremities; Denies: headache(s), lack of coordination, dizziness, Slurred speech present or seizure-like activity Psych: Denies: anxiety or depression Endo: Reports: polyuria and polydipsia PFSH ED PFSH: Medical History CHF (congestive heart failure), NYHA class III CKD (chronic kidney disease) stage 2, GFR 60-89 ml/min Essential hypertension Surgical History H/O knee surgery Hx laparoscopic cholecystectomy Family History Father Family history of premature coronary artery disease age 64 due to [place] Other CAD (coronary artery disease) Social History Smoking and tobacco status: current every day smoker cigarettes [ Other cigarette details: Half pack a day] Alcohol intake: never Household members: significant other Housing: House Physical Exam Narrative: EXAM NARRATIVE: The patient is alert responds appropriately to questions. Speech is goal- directed and fluent. Const: COMMON NORMALS: no acute distress, patient oriented x3 and no limitations GENERAL APPEARANCE: cooperative and comfortable NUTRITIONAL APPEARANCE: overweight HENMT: COMMON NORMALS: normocephalic, atraumatic, Normal nasal mucous membranes and turbinates present and moist oral mucous membranes HEAD & SCALP: normocephalic and atraumatic NOSE: Normal nasal mucous membranes and turbinates present Eye: COMMON NORMALS: Equal, round and reactive pupils present, EOMs intact bilaterally and conjunctivae normal CONJUNCTIVA: Yes conjunctivae normal PUPIL: Yes Equal, round and reactive pupils present Neck/C-Spine: COMMON NORMALS: full ROM, no JVD and No carotid bruits Chest: COMMONS NORMALS: normal inspection of the chest Resp: COMMON NORMALS: normal respiratory effort, No retractions, No use of accessory muscles and clear to auscultation bilaterally AUSCULTATION: clear to auscultation bilaterally Cardio: COMMON NORMALS: no JVD, regular rate, regular rhythm, No murmurs present (Cardio) and Peripheral pulses 2+ throughout RATE: regular rate RHYTHM: regular rhythm PERIPHERAL PULSES: Peripheral pulses 2+ throughout GI: COMMON NORMALS: Normal to inspection, nondistended, normoactive bowel sounds present, Soft to palpation, non-tender and no masses PALPATION: Yes Soft to palpation : COMMON NORMALS: Yes no CVA tenderness BLADDER/KIDNEY EXAM: Yes no CVA tenderness Back/Pelvis: COMMON NORMALS: no CVA tenderness, thoracic and lumbar spine normal to inspection, no thoracic nor lumbar tenderness, thoraco-lumbar ROM normal and straight leg raise negative bilaterally Extremity: COMMON NORMALS: normal to inspection, full ROM, capillary refill normal, no clubbing, cyanosis or edema, no calf tenderness and no pedal edema Neuro: COMMON NORMALS: patient oriented x3, moves all extremities, no focal mo tor deficits, no sensory deficits noted and deep tendon reflexes 2+ bilaterally CRANIAL NERVES: Yes CN normal except as noted COORDINATION/BALANCE: [id number]-[id number] test normal and eetk-ca-ckfy test normal SPEECH: speech normal GAIT: Yes Normal gait present COORDINATION: ajtfri-vu-[id number] test normal and mllp-pp-pprh test normal OTHER: NIH at time of initial exam equals 0 Psych: COMMON NORMALS: mental status grossly normal Skin: COMMON NORMALS: no rashes or lesions noted, turgor normal and no jaundice GENERAL SKIN EXAM: no rashes or lesions noted and turgor normal Course Reevaluation(s): Reevaluation #1: Patient remained stable. He has significant hyperglycemia consistent with hyperosmolar state. We will begin on low-dose insulin infusion as well as continue IV hydration. No evidence at this time of any acute intracranial changes on CT scan to explain his subjective left-sided symptoms. We will pursue this with additional imaging and/or evaluation after admission. No evidence at this time of acute stroke, etc. Time: 15:39 Consultations: Consultation #1: Consulted with Dr. Mcclendon the hospitalist who agreed to accept the patient in for admission. Time: 15:41 Vital Signs: Vital signs: Vital Signs Temperature 98.2 F 07/31/22 14:00 Pulse Rate 74 07/31/22 14:00 Respiratory Rate 16 07/31/22 14:00 Blood Pressure 170/101 07/31/22 14:00 Pulse Oximetry 93 07/31/22 14:00 Oxygen Delivery Me thod Nasal Cannula 07/31/22 14:00 MDM - General Adult Medical Decision Making Patient presented to the emergency department with unusual symptoms where he felt like his left leg was not responding normally. This resolved prior to arrival at the emergency department. There was some question of whether he had undiagnosed diabetes and this was confirmed during his emergency department stay with a significant elevation in his blood sugar greater than 1000 with very minimal anion gap and other findings suggestive of hyperosmolar state to include hypernatremia etc. He will be admitted to the ICU for insulin infusion, further work-up. At this point time he has no evidence of a persistent neurologic d eficit no indication for aggressive therapy but further imaging and evaluation of this symptom will be undertaken as well. Medical Records I reviewed the patient's medical records. Lab Data I reviewed the patient's lab results. 07/31/22 12:00 07/31/22 12:[address] 07/31/22 14:39 IMPRESSION: 1. No CT evidence of acute intracranial pathology. 2. Additional findings, as above. Laboratory Results WBC 7.8 10^3/uL (4.0-10.0) 07/31/22 12:00 RBC 5.15 10^6/uL (4.1-5.3) 07/31/22 12:00 Hgb 14.9 g/dL (11.7-16.6) 07/31/22 12:00 Hct 43.6 % (42.0-52.0) 07/31/22 12:00 MCV 84.7 fl (80-94) 07/31/22 12:00 MCH 28.9 pg (28.0-34.0) 07/31/22 12:00 MCHC 34.2 g/dL (30.0-36.0) 07/31/22 12:00 RDW 12.5 % (12.1-15.1) 07/31/22 12:00 Plt Count 171 10^3/cmm (130-400) 07/31/22 12:00 MPV 12.9 fL (7.4-10.4) H 07/31/22 12:00 Neut % (Auto) 69.9 % 07/31/22 12:00 Lymph % (Auto) 19.2 % 07/31/22 12:00 Douglas % (Auto) 8.7 % 07/31/22 12:00 Eos % (Auto) 1.2 % 07/31/22 12:00 Baso % (Auto) 0.5 % 07/31/22 12:00 Neut # (Auto) 5.44 10^3/uL (1.8-7.7) 07/31/22 12:00 Lymph # (Auto) 1.5 10^3/uL (0.8-4.8) 07/31/22 12:00 Douglas # (Auto) 0.7 10^3/uL (0.2-0.9) 07/31/22 12:00 Eos # (Auto) 0.1 10^3/uL (0.0-0.8) 07/31/22 12:00 Baso # (Auto) 0.0 10^3/uL (0.0-0.1) 07/31/22 12:00 Nucleated RBC % (auto) 0 % 07/31/22 12:00 Nucleated RBCs # 0.0 /100WBC 07/31/22 12:00 Sodium 121 mmol/L (136-145) L 07/31/22 12:00 Potassium 4.2 mmol/L (3.5-5.1) 07/31/22 12:00 Chloride 84 mmol/L (98-107) L 07/31/22 12:00 Carbon Dioxide 24 mmol/L (22-29) 07/31/22 12:00 Anion Gap 17.2 (5-19) 07/31/22 12:00 BUN 24 mg/dL (6-20) H 07/31/22 12:00 Creatinine 1.2 mg/dL (0.7-1.2) 07/31/22 12:00 GFR Calculation 62.0 mL/min (90-130) L 07/31/22 12:00 Glucose 1005 mg/dL (65-115) H* 07/31/22 12:00 POC Glucose > 600 mg/dL (70-110) H* 07/31/22 13:59 Calculated Osmolality 306 mOsm/kg (285-295) H 07/31/22 12:00 Calcium 9.2 mg/dL (8.5-10.5) 07/31/22 12:00 Total Bilirubin 0.9 mg/dL (0.15-1.2) 07/31/22 12:00 AST 34 U/L (0-40) 07/31/22 12:00 ALT 60 U/L (0-41) H 07/31/22 12:00 Alkaline Phosphatase 141 U/L (40-130) H 07/31/22 12:00 Total Protein 7.8 g/dL (6.6-8.7) 07/31/22 12:00 Albumin 4.6 g/dL (3.5-5.2) 07/31/22 12:00 Globulin 3.2 g/dL (1.3-4.6) 07/31/22 12:00 Urine Color Yellow (Yellow) 07/31/22 14:54 Urine Appearance Clear (CLEAR) 07/31/22 14:54 Urine pH 6 (5-7) 07/31/22 14:54 Ur Specific [place] 1.010 (1.005-1.030) 07/31/22 14:54 Urine Protein Neg (Negative) 07/31/22 14:54 Urine Glucose (UA) 4+ (Normal) H 07/31/22 14:54 Urine Ketones Negative (Negative) 07/31/22 14:54 Urine Blood Neg (Negative) 07/31/22 14:54 Urine Nitrate Negative (Negative) 07/31/22 14:54 Urine Bilirubin Neg (Negative) 07/31/22 14:54 Urine Urobilinogen Norm mg/dL (Negative) 07/31/22 14:54 Ur Leukocyte Esterase Negative (Negative) 07/31/22 14:54 Discharge Plan Discharge Patient Disposition: Admitted As Inpatient Clinical Impression: Hyperosmolar non-ketotic state due to type 2 diabetes mellitus, TIA (transient ischemic attack) Condition: Stable Coding Level of Care Code ED Marketing Communications Associate for Woo Fwd Exam Comprehensive
--- NOTE | 2022-07-31 14:39 | CTR_ITS ---
PROCEDURE INFORMATION: Exam: CT Head Without Contrast Exam date and time: 07/31/2022 2:56 PM Age: 57 years old Clinical indication: Weakness, extremity; Left; Additional info: Left sided weakness now resolved TECHNIQUE: Imaging protocol: Computed tomography of the head without contrast. Axial and coronal reformatted images were created and reviewed. Radiation optimization: All CT scans at this facility use at least one of these dose optimization techniques: automated exposure control; mA and/or kV adjustment per patient size (includes targeted exams where dose is matched to clinical indication); or iterative reconstruction. COMPARISON: No relevant prior studies available. RADIATION DOSE METRICS: Total DLP (mGy-cm): 1166.58 FINDINGS: Brain: Patchy areas of hypoattenuation in the periventricular and subcortical white matter, consistent with chronic small vessel ischemic disease. Focal, well-circumscribed hypodensity in the right thalamus, consistent with chronic lacunar infarction. No CT evidence of acute intracranial hemorrhage or acute territorial infarction. No significant mass effect or midline shift. Basal cisterns patent. Cerebral ventricles: Prominence of the cortical sulci, cisterns and ventricular system, consistent with cerebral and cerebellar volume loss. Paranasal sinuses: Mild ethmoid and left maxillary sinus mucosal thickening. No fluid levels. Mastoid air cells: Grossly unremarkable. Bones/joints: No acute osseous abnormality. Soft tissues: Grossly unremarkable. CT/CT head wo con* [id number]: 1[address] No CT evidence of acute intracranial pathology. 2. Additional findings, as above.
--- NOTE | 2022-07-31 14:49 | ECG_ITS ---
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 Measurements Intervals [place] Rate: 74 P: 68 MD: 167 QRS: -29 QRSD: 117 T: 29 QT: 412 QTc: 458 Interpretive Statements SINUS RHYTHM BORDERLINE LEFT AXIS DEVIATION [QRS AXIS < -20] INCOMPLETE RIGHT BUNDLE BRANCH BLOCK [90+ ms QRS DURATION, TERMINAL R IN V1/V2, 40+ ms S IN I/aVL/V4/V5/V6] Compared to ECG 08/16/2020 08:00:19 T-wave abnormality no longer present Electronically Signed On 07-31-2022 21:48:47 SUPERVISOR INSPECTION ROOM by Ariana Lopez M.D. [id number]
[2022-07-31] MEDS: sodium chloride 0.9% 1,000 ML 999 ML IV ×2 (14:54→18:17)
[2022-07-31 15:01] LABS: Add Urine Microscopic? NO; Charge for UA Resulting for Rev
[2022-07-31 15:08] LABS: Basophils % 0.5 %; Eosinophils # 0.1 10^3/uL (0.0-0.8); Eosinophils % 1.2 %; Hematocrit 43.6 % (42.0-52.0); Hemoglobin 14.9 g/dL (11.7-16.6); Lymphocytes # 1.5 10^3/uL (0.8-4.8); Lymphocytes % 19.2 %; Mean Corpuscular HGB Conc 34.2 g/dL (30.0-36.0); Mean Corpuscular Hemoglobin 28.9 pg (28.0-34.0); Mean Corpuscular Volume 84.7 fl (80-94); Mean Platelet Volume 12.9 fL (7.4-10.4); Monocytes # 0.7 10^3/uL (0.2-0.9); Monocytes % 8.7 %; Neutrophils # 5.44 10^3/uL (1.8-7.7); Neutrophils % 69.9 %; Nucleated Red Blood Cells % 0 %; Platelet Count 171 10^3/cmm (130-400); Red Blood Count 5.15 10^6/uL (4.1-5.3); Red Cell Distribution Width 12.5 % (12.1-15.1); White Blood Count 7.8 10^3/uL (4.0-10.0)
[2022-07-31 15:10] LABS: Bilirubin Urine Neg (Negative); Blood Urine Neg (Negative); Glucose Urine UA 4+ (Normal); Ketones Urine Negative (Negative); Leukocyte Esterase Urine Negative (Negative); Nitrate Urine Negative (Negative); Protein Urine Neg (Negative); Urine Appearance Clear (CLEAR); Urine Color Yellow (Yellow); Urobilinogen Urine Norm (Negative); pH Urine 6 (5-7)
[2022-07-31 15:17] LABS: Alanine Aminotransferase 60 U/L (0-41); Albumin Level 4.6 g/dL (3.5-5.2); Alkaline Phosphatase 141 U/L (40-130); Anion Gap 17.2 (5-19); Aspartate Amino Transferase 34 U/L (0-40); Blood Urea Nitrogen 24 mg/dL (6-20); Calcium 9.2 mg/dL (8.5-10.5); Carbon Dioxide 24 mmol/L (22-29); Chloride 84 mmol/L (98-107); Globulin 3.2 g/dL (1.3-4.6); Potassium 4.2 mmol/L (3.5-5.1); Sodium 121 mmol/L (136-145); Total Bilirubin 0.9 mg/dL (0.15-1.2); Total Protein 7.8 g/dL (6.6-8.7)
[2022-07-31 15:25] LABS: Osmolality Calculated 306 mOsm/kg (285-295)
[2022-07-31 15:28] LABS: Glucose 1005 mg/dL (65-115)
--- NOTE | 2022-07-31 15:37 | CTR_ITS ---
PROCEDURE INFORMATION: Exam: CTA Head Without And With Contrast, Arteriography Exam date and time: 07/31/2022 9:18 PM Age: 57 years old Clinical indication: Weakness; Additional info: Resolved weakness from left lower extremity earlier today TECHNIQUE: Imaging protocol: Computed tomographic angiography of the head without and with contrast. Exam focused on the arteries. Axial, coronal and sagittal reformatted images were created and reviewed. 3D rendering (Not supervised by radiologist): MIP and/or 3D reconstructed images were created by the technologist. Radiation optimization: All CT scans at this facility use at least one of these dose optimization techniques: automated exposure control; mA and/or kV adjustment per patient size (includes targeted exams where dose is matched to clinical indication); or iterative reconstruction. Contrast material: OMNIPAQUE 350; Contrast volume: 95 ml; Contrast route: INTRAVENOUS (IV); COMPARISON: CT head wo con* [id number] 07/31/2022 2:56 PM RADIATION DOSE METRICS: Total DLP (mGy-cm): 1111.33 FINDINGS: ANTERIOR CIRCULATION: Right internal carotid artery: Intracranial segment is patent with no significant stenosis or occlusion. No aneurysm. Right middle cerebral artery: No occlusion or significant stenosis. No aneurysm. Right anterior cerebral artery: No occlusion or significant stenosis. No aneurysm. Left internal carotid artery: Intracranial segment is patent with no significant stenosis. No aneurysm. Left middle cerebral artery: No occlusion or significant stenosis. No aneurysm. Left anterior cerebral artery: No occlusion or significant stenosis. No aneurysm. POSTERIOR CIRCULATION: Right vertebral artery: No occlusion or significant stenosis. No aneurysm. Left vertebral artery: No occlusion or significant stenosis. No aneurysm. Basilar artery: No occlusion or significant stenosis. No aneurysm. Right posterior cerebral artery: No occlusion or significant stenosis. No aneurysm. Left posterior cerebral artery: No occlusion or significant stenosis. No aneurysm. HEAD: Brain: Patchy areas of hypoattenuation in the periventricular and subcortical white matter, consistent with chronic small vessel ischemic disease. Focal, well-circumscribed hypodensity in the right thalamus, consistent with chronic lacunar infarction. No hemorrhage. No mass effect. Cerebral ventricles: Prominence of the cortical sulci, cisterns and ventricular system, consistent with cerebral and cerebellar volume loss. Bones/joints: Unremarkable. No acute fracture. Paranasal sinuses: Mild ethmoid and left maxillary sinus mucosal thickening. Mastoid air cells: Visualized mastoids are normal. No mastoid effusion. Soft tissues: Unremarkable. PROCEDURE INFORMATION: Exam: CTA Neck With Contrast Exam date and time: 07/31/2022 9:18 PM Age: 57 years old Clinical indication: Weakness; Additional info: Resolved weakness from left lower extremity earlier today TECHNIQUE: Imaging protocol: Computed tomographic angiography of the neck with contrast. Axial, coronal and sagittal reformatted images were created and reviewed. 3D rendering (Not supervised by radiologist): MIP and/or 3D reconstructed images were created by the technologist. Radiation optimization: All CT scans at this facility use at least one of these dose optimization techniques: automated exposure control; mA and/or kV adjustment per patient size (includes targeted exams where dose is matched to clinical indication); or iterative reconstruction. Contrast material: OMNIPAQUE 350; Contrast volume: 95 ml; Contrast route: INTRAVENOUS (IV); COMPARISON: CT head wo con* [id number] 07/31/2022 2:56 PM RADIATION DOSE METRICS: Total DLP (mGy-cm): 1111.33 FINDINGS: Right common carotid artery: No stenosis. No dissection or occlusion. Right internal carotid artery: Mild atherosclerotic calcification of the carotid bulb. No hemodynamically significant stenosis. No dissection or occlusion. Right external carotid artery: No occlusion or stenosis of the origin. Left common carotid artery: No stenosis. No dissection or occlusion. Left internal carotid artery: Mild atherosclerotic calcification of the carotid bulb. No hemodynamically significant stenosis. No dissection or occlusion. Left external carotid artery: No occlusion or stenosis of the origin. Right vertebral artery: No stenosis. No dissection or occlusion. Left vertebral artery: No stenosis. No dissection or occlusion. Soft tissues: Unremarkable. Bones/joints: No acute osseous abnormality. Straightening of the normal cervical lordosis. Mild multilevel degenerative changes, characterized by disc space narrowing, osteophytosis and uncovertebral and facet joint hypertrophy. Mild multilevel spinal canal and neural foraminal narrowing. CT/CT angio headneck* [id number] IMPRESSION: No large vessel occlusion. No acute intracranial pathology. IMPRESSION: No hemodynamically significant stenosis or occlusion. REFERENCES: NASCET CRITERIA. The degree of stenosis in the cervical segment of the internal carotid artery is based on NASCET criteria. Normal is no stenosis. Mild is less than 50% stenosis. Moderate is 50-69% stenosis. Severe is 70% to 99% stenosis. Total occlusion is no detectable patent lumen.
[2022-07-31 16:17] LABS: Ketone (Acetest) Serum Negative (Negative)
[2022-07-31] MEDS: sodium chloride 0.9% 1,000 ML 100 ML IV ×2 (16:52→18:47)
[2022-07-31] MEDS: insulin regular-human 250 UNIT in sodium chloride 0.9% 250 ML 28.3 UNIT IV (16:53)
[2022-07-31] MEDS: aspirin 81 mg Chew Tablet 324 MG PO (16:55)
--- NOTE | 2022-07-31 17:19 | PM.HP ---
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 Prior to that patient stated he has been having symptoms of excessive thirst, excessive urination for last 3 to 4 weeks for which he saw his primary care today. Patient does not give any history of diabetes in the past. States he has been taking his antihypertensives regularly. States he has been coming down on his smoking and currently smokes 2 packs a week. ER course: In ER patient was found to have hyperosmolar state for which he received 2 L of IV fluids and was started on insulin drip. CT head was done which was negative. Review of Systems General: Reports: 10 or more systems reviewed and unremarkable except in HPI and below Const: Denies: fever(s), chills, body aches, change in appetite, change in weight, malaise, night sweats, diaphoresis, change in sleep pattern, daytime sleepiness or snoring Eyes: Denies: change in vision, blurry vision, photophobia, eye discomfort or eye discharge ENMT: Denies: throat pain, enlarged tonsils, hoarseness, mouth pain, oral sores, dry mouth, tinnitus, nasal congestion or post nasal drip Card: Denies: chest pain, palpitations, irregular heart rhythm, edema, swelling of feet/ankles, lightheadedness, syncope, pre-syncope, dyspnea on exertion, orthopnea, leg pain with exertion or acrocyanosis Resp: Denies: dyspnea, productive cough, non-productive cough, wheezing, stridor, pain on inspiration, change in phlegm color, hemoptysis or chest congestion GI: Denies: abdominal pain, nausea, vomiting, hematemesis, coffee ground emesis, dysphagia, heartburn, diarrhea, constipation, bloating, GI cramping, change in bowel habits, pain on defecation, hematochezia or melena : Denies: flank pain, difficulty urinating, dysuria, urinary frequency, urinary urgency, urinary hesitancy, urinary dribbling, difficulty starting urination, change in urine stream, nocturia or hematuria Musc: Denies: neck pain, back pain, extremity pain, joint pain, joint swelling, joint redness, joint stiffness or limited range of motion Neuro: Denies: headache(s), numbness in extremities, weakness in extremities, sensory changes, lack of coordination, difficulty walking, frequent falls, dizziness, vertigo, confusion, Slurred speech present, difficulty communicating thoughts or seizure-like activity Psych: Denies: anxiety, depression, mood swings, panic attacks, hopelessness or irritability Endo: Denies: polyuria, polydipsia, tired all the time, cold intolerance, excessive sweating, flushing or heat intolerance Momo/Lymph: Denies: easy bruising or easy bleeding All/Imm: Denies: tongue swelling, facial swelling or acute wheezing Medications/Allergies Home Medications Medication Instructions Recorded Confirmed Last Taken Type carvedilol 6.25 mg tablet (Coreg) 6.25 mg PO BID #180 tabs 04/26/22 07/31/22 07/30/22 Rx furosemide 40 mg tablet (Lasix) 40 mg PO DAILY #90 tabs 04/26/22 07/31/22 07/30/22 Rx isosorbide mononitrate 30 mg 30 mg PO DAILY #90 tabs 04/26/22 07/31/22 07/30/22 Rx tablet,extended release 24 hr amlodipine 10 mg tablet 10 mg PO DAILY 07/31/22 07/31/22 07/30/22 History atorvastatin 40 mg tablet 40 mg PO DAILY 07/31/22 07/31/22 07/30/22 History potassium chloride 20 mEq 20 meq PO DAILY 07/31/22 07/31/22 07/30/22 History tablet,extended release(part/cryst) Allergies Allergy/AdvReac Type Severity Reaction Status Date / Time No Known Allergies Allergy Verified 07/31/22 14:26 PFSH Acute PFSH: Medical History (Updated 07/31/22 @ 17:22 by Primo Garcia MD) BPH (benign prostatic hyperplasia) CHF (congestive heart failure), NYHA class III CKD (chronic kidney disease) stage 2, GFR 60-89 ml/min Conn's syndrome COPD (chronic obstructive pulmonary disease) Essential hypertension NSTEMI (non-ST elevated myocardial infarction) Secondary hypertension Surgical History H/O knee surgery Hx laparoscopic cholecystectomy Family History Father Family history of premature coronary artery disease age 64 due to CA Other CAD (coronary artery disease) Social History Smoking and tobacco status: current every day smoker cigarettes [ Other cigarette details: Half pack a day] Alcohol intake: never Household members: significant other Housing: House Vitals/I&O/Wt Last Vital Signs Temp 98.2 F 07/31/22 14:00 Pulse 74 07/31/22 14:00 Resp 16 07/31/22 14:00 BP 170/101 07/31/22 14:00 Pulse Ox 93 07/31/22 14:00 O2 Del Method Nasal Cannula 07/31/22 14:00 07/31/22 07/31/22 07/31/22 06:59 14:59 22:59 Intake Total 1000 / 1000 Balance 1000 / 1000 Weight last 48 hrs Weight 120.202 kg Physical Exam Narrative: General: No acute distress, AO x3 HEENT: PERRLA, pupils bilaterally equal and reactive Chest: Normal vesicular breath sounds, no added sounds, equal good air entry bilaterally CVS: S1-S2 regular, no murmurs, no tachycardia, no gallops, no rubs Abdomen: Soft, nontender, no organomegaly, bowel sounds present Neuro: No focal deficits, no facial deformity, AO x3, power 5/5 in all limbs Data 07/31/22 12:00 07/31/22 12:00 A&P Assessment and plan (1) Hyperosmolar non-ketotic state due to type 2 diabetes mellitus: Ketones negative. Mild anion gap acidosis. Continue with normal saline at 100 cc/h. Insulin drip. Blood sugar checks every hourly. Monitor BMP every 6 hour. Monitor potassium. Replete accordingly. Once blood sugar is less than 200 can stop insulin drip and start checking blood sugars every 4 hourly. N.p.o. overnight. Will start on diet and insulin sliding scale in AM. (2) TIA (transient ischemic attack): CT head negative for any intracranial hemorrhage. CTA head and neck, echocardiogram. Permissible hypertension. Goal blood pressure less than 220/105 mmHg. Hold off on antihypertensives for now. Neurochecks every 1 hour (3) Essential hypertension: Takes amlodipine, carvedilol, Imdur at home. Hold off on antihypertensives for now as above. (4) CKD (chronic kidney disease) stage 2, GFR 60-89 ml/min: Baseline creat in system ranging from 1.3-1.5. Currently 1.2. Medical reconciliation done for nephrotoxic drugs. Plan NPO. Protonix for PUD prophylaxis Heparin for DVT prophylaxis. Admit to ICU. Attestations Medical Necessity Statement*: Admission for more than 2 midnights for management of hyperosmolar nonketotic state and an undiagnosed type 2 diabetes mellitus, evaluation of TIA Critical Care Time: The high probability of a clinically significant, sudden or life threatening deterioration of the patient's [endocrine, neurology] system(s) required my full and direct attention, intervention and personal management. The critical care time is as shown. This time is in addition to time spent performing any reported procedures but includes the following: [x] Data and vital sign review and interpretation [x] Patient assessment, examination and intervention [x] Documentation [x] Medication orders and management 60 Coding Level of Care Code Acute Medical Staff Credentialing Coordinator for [facility] Fwd Diagnoses Hyperosmolar non-ketotic state due to type 2 diabetes mellitus E11.00 TIA (transient ischemic attack) G45.9 Essential hypertension I10 CKD (chronic kidney disease) stage 2, GFR 60-89 ml/min N18.2
--- NOTE | 2022-07-31 18:12 | USCV_ITS ---
Leo Arredondo Age: 57 Gender: M : 1965 Exam Date: 07/31/2022 18:30 Ordering Phys: Primo Garcia MD Technologist: ASHLEY [place] [facility] [place]: LEFT hemiparesis today. No history of cardiac intervention per patient. BP: 146 / 88 HR: 78 Rhythm: Sinus Technical Quality: Adequate MEASUREMENTS (Male / Female) Normal Values 2D ECHO LV Diastolic Diameter PLAX 3.8 cm 4.2 - 5.9 / 3.9 - 5.3 cm LV Systolic Diameter PLAX 2.6 cm IVS Diastolic Thickness 2.2 cm 0.6 - 1.0 / 0.6 - 0.9 cm IVS Systolic Thickness 2.6 cm LVPW Diastolic Thickness 1.3 cm 0.6 - 1.0 / 0.6 - 0.9 cm LVPW Systolic Thickness 1.9 cm LVOT Diameter 2.1 cm LV Ejection Fraction 2D Teich 62.0 % LV Ejection Fraction MOD 2C 71.4 % LV Ejection Fraction 2C AL 73.8 % LA Diameter 3.3 cm LA Width 3.7 cm LA Height 5.3 cm RA Width 3.5 cm RA Height 4.1 cm Aorta at Sinotubular Diameter 2.7 cm IVC Diameter 1.7 cm M-MODE Aortic Annulus Diameter 2.8 cm LA Ao Ratio MM 1.2 MV E Point Septal Separation 0.4 cm DOPPLER AV Peak Velocity 172.0 cm/s LVOT Peak Velocity 167.0 cm/s AV Area Cont Eq vti 3.6 cm squared AV Area Cont Eq pk 3.4 cm squared MV Area PHT 1.9 cm squared Mitral E to A Ratio 1.0 MV E' Velocity 35.5 cm/s Mitral E to MV E' Ratio 11.6 Mitral E to LV E' Lateral Ratio 11.6 Mitral E to LV E' Septal Ratio 11.6 TV Peak E Velocity 67.0 cm/s PV Peak Velocity 104.0 cm/s RV Acceleration Time 0.1 s RV Ejection Time 0.4 s RV AcT/ET 0.3 FINDINGS Left Ventricle Normal left ventricular size and systolic function, EF 68 %. No regional wall motion abnormalities.mild left ventricular hypertrophy. Right Ventricle The right ventricle is normal in size and function. Right Atrium The right atrium is normal in size. Left Atrium Normal left atrial size. Mitral Valve Trace mitral valve regurgitation. Aortic Valve Minimally thickened aortic valve Tricuspid Valve No gross abnormalities noted Pulmonic Valve No gross abnormalities noted Pericardium No pericardial effusion. Aorta Normal aortic annulus size. IVC The inferior vena cava appears normal. CONCLUSIONS Normal left ventricular size and systolic function, EF 68 %. No regional wall motion abnormalities Mild to moderate concentric left ventricular hypertrophy. Trace mitral valve regurgitation. Normal cardiac chamber sizes. Minimally thickened aortic valve There is no pericardial effusion. There are no intracardiac masses. Compared to the study from 08/15/2020, there may not be a significant change Dr Ariana Lopez MD FACC (Electronically Signed) Final Date: 01 August 2022 08:13 S
[2022-07-31 18:37] LABS: Glucose Point of Care 334 mg/dL (70-110)
[2022-07-31] MEDS: aspirin 325 mg EC Tablet PO (18:45)
[2022-07-31] MEDS: heparin 5,000 unit/mL INJ 1 mL 5000 UNIT SUBCUT (18:45)
[2022-07-31] MEDS: pantoprazole 40 mg SDV IVP (18:45)
[2022-07-31 19:16] LABS: Anion Gap 13.1 (5-19); Blood Urea Nitrogen 19 mg/dL (6-20); Calcium 9.1 mg/dL (8.5-10.5); Carbon Dioxide 25 mmol/L (22-29); Chloride 96 mmol/L (98-107); Glomerular Filtration Rate 68.5 mL/min (90-130); Glucose 473 mg/dL (65-115); Osmolality Calculated 295 mOsm/kg (285-295); Potassium 3.1 mmol/L (3.5-5.1); Sodium 131 mmol/L (136-145); Thyroid Stimulating Hormone 0.69 uIU/mL (0.27-4.20)
[2022-07-31 19:26] LABS: Iron 93 ug/dL (59-158); Percent Saturation 41.3 % (20-50); Total Iron Binding Capacity 225 mcg/dl; Unsaturated Iron Binding 132 ug/dL (112-347); Vitamin B12 1245 pg/mL (232-1245)
[2022-07-31 19:28] LABS: Folate Level 14.5 ng/mL (4.5-32.2)
[2022-07-31 19:44] LABS: Amphetamines Screen Urine Positive (Negative); Barbiturates Screen Urine Negative (Negative); Benzodiazepines Screen Urine Negative (Negative); Cocaine Screen Urine Negative (Negative); Opiate Screen Urine Negative (Negative); PCP Screen Urine Negative (Negative); THC Screen Urine Negative (Negative)
[2022-07-31 20:03] LABS: Glucose Point of Care 396 mg/dL (70-110)
[2022-07-31 21:07] LABS: Glucose Point of Care 109 mg/dL (70-110)
[2022-07-31] MEDS: iohexol 350 mg/mL 500 mL Btl (per mL) IV (21:23)
[2022-07-31] MEDS: lidocaine 1% 5 ML in potassium chloride premix 100 ML 26.25 ML IV (22:17)
[2022-07-31 23:28] LABS: Glucose Point of Care 353 mg/dL (70-110)
[2022-08-01] VITALS (50 sets, daily range): BP systolic 135–185; BP diastolic 76–119; PULSE 61–81; RESP 14–25; TEMP 36.1–36.8; O2SAT 91–97
[2022-08-01 00:24] LABS: Troponin(5th) Baseline 15 ng/L (0-15)
[2022-08-01 00:25] LABS: Anion Gap 12.7 (5-19); Blood Urea Nitrogen 15 mg/dL (6-20); Calcium 8.1 mg/dL (8.5-10.5); Carbon Dioxide 25 mmol/L (22-29); Chloride 100 mmol/L (98-107); Glomerular Filtration Rate 86.4 mL/min (90-130); Glucose 288 mg/dL (65-115); Osmolality Calculated 289 mOsm/kg (285-295); Potassium 3.7 mmol/L (3.5-5.1); Sodium 134 mmol/L (136-145)
[2022-08-01] MEDS: insulin lispro 100 unit/1 mL SUBCUT ×5 (00:35→22:11)
[2022-08-01] MEDS: insulin glargine 100 units/1 mL 10 UNIT SUBCUT (00:35)
[2022-08-01 01:49] LABS: Glucose Point of Care 419 mg/dL (70-110)
[2022-08-01 02:53] LABS: Basophils % 0.4 %; Eosinophils # 0.2 10^3/uL (0.0-0.8); Eosinophils % 2.2 %; Hematocrit 38.1 % (42.0-52.0); Hemoglobin 13.5 g/dL (11.7-16.6); Lymphocytes # 2.1 10^3/uL (0.8-4.8); Lymphocytes % 23.2 %; Mean Corpuscular HGB Conc 35.4 g/dL (30.0-36.0); Mean Corpuscular Hemoglobin 29.4 pg (28.0-34.0); Mean Platelet Volume 12.1 fL (7.4-10.4); Monocytes # 0.7 10^3/uL (0.2-0.9); Monocytes % 7.2 %; Neutrophils # 6.12 10^3/uL (1.8-7.7); Neutrophils % 66.6 %; Nucleated Red Blood Cells % 0 %; Platelet Count 140 10^3/cmm (130-400); Red Blood Count 4.59 10^6/uL (4.1-5.3); Red Cell Distribution Width 12.4 % (12.1-15.1); White Blood Count 9.2 10^3/uL (4.0-10.0)
[2022-08-01 03:22] LABS: Troponin 5 2HR 17.31 ng/L (0-15)
[2022-08-01 03:23] LABS: Alanine Aminotransferase 49 U/L (0-41); Albumin Level 3.8 g/dL (3.5-5.2); Alkaline Phosphatase 113 U/L (40-130); Anion Gap 14.2 (5-19); Aspartate Amino Transferase 32 U/L (0-40); Blood Urea Nitrogen 15 mg/dL (6-20); Calcium 8.4 mg/dL (8.5-10.5); Carbon Dioxide 25 mmol/L (22-29); Chloride 102 mmol/L (98-107); Chol HDL Ratio 4.29 mg/dL (1.0-5.00); Cholesterol 103 mg/dL (0-200); Globulin 2.5 g/dL (1.3-4.6); Glomerular Filtration Rate 68.5 mL/min (90-130); Glucose 343 mg/dL (65-115); HDL Cholesterol 24 mg/dL (60-100); LDL Cholesterol Calculated 22 mg/dL (50-129); Osmolality Calculated 298 mOsm/kg (285-295); Phosphorus 2.9 mg/dL (2.5-4.5); Potassium 4.2 mmol/L (3.5-5.1); Sodium 137 mmol/L (136-145); Total Bilirubin 0.3 mg/dL (0.15-1.2); Total Protein 6.3 g/dL (6.6-8.7); Triglycerides 287 mg/dL (0-150); VLDL Cholestrol Calculation 57 mg/dL (0-30)
[2022-08-01 03:25] LABS: Troponin 5 2HR Delta 2.31 ABS# (0-10)
[2022-08-01] MEDS: heparin 5,000 unit/mL INJ 1 mL 5000 UNIT SUBCUT ×2 (05:13→17:14)
[2022-08-01] MEDS: sodium chloride 0.9% 1,000 ML 100 ML IV ×2 (05:13→14:37)
[2022-08-01] MEDS: carvedilol 3.125 mg Tablet PO ×2 (06:19→17:14)
[2022-08-01 07:12] LABS: Troponin 5 6HR 13.61 ng/L (0-15)
[2022-08-01 07:22] LABS: Troponin 5 6HR Delta -1.39 ng/L (0-12)
[2022-08-01 07:38] LABS: Glucose Point of Care 375 mg/dL (70-110)
[2022-08-01] MEDS: losartan 50 mg Tablet PO (07:52)
[2022-08-01] MEDS: isosorbide mononitrate ER 30 mg Tablet PO (07:52)
[2022-08-01] MEDS: atorvastatin 40 mg Tablet PO (07:52)
[2022-08-01] MEDS: aspirin 81 mg EC Tablet PO (07:53)
--- NOTE | 2022-08-01 08:21 | ECG_ITS ---
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 Interpretive Statements NAME OF STUDY: LEXISCAN SESTAMIBI STRESS TEST INDICATION: Unstable Angina, PROCEDURE: At the baseline, the EKG revealed normal sinus rhythm with frequent PVCs and supraventricular ectopics. The baseline heart was 78 bpm with a blood pressue of 210/120 mm of Hg Lexiscan was infused over a period of 20 seconds. A total of 0.4 milligrams of Lexiscan was infused. The stress phase was continued for a total of 5 minutes. Heart rate at the end of the stress phase was 96 bpm with a blood pressure 181/101 mm of Hg. The EKG at the peak infusion revealed frequent PVCs sestamibi was injected 20 seconds after the Lexiscan infusion. Heart rate at the end of the recovery phase was 90 bpm with a blood pressure of 176/90 mm of Hg. CONCLUSION: 1. No significant EKG changes with the LexiScan infusion 2. No LexiScan induced chest pain or cardiac arrhythmia 3. Normal blood pressure and heart rate response 4. Sestamibi/sestamibi perfusion scan pending; see separate report. Electronically Signed On 08-02-2022 12:00:12 COLLEGE RECRUITER by Ariana Lopez M.D. [email or web address]
[2022-08-01] MEDS: insulin glargine 100 units/1 mL 20 UNIT SUBCUT ×2 (09:21→22:11)
[2022-08-01 11:20] LABS: Glucose Point of Care 341 mg/dL (70-110)
[2022-08-01 11:27] LABS: Anion Gap 12.5 (5-19); Blood Urea Nitrogen 13 mg/dL (6-20); Calcium 8.3 mg/dL (8.5-10.5); Carbon Dioxide 24 mmol/L (22-29); Chloride 103 mmol/L (98-107); Glomerular Filtration Rate 86.4 mL/min (90-130); Glucose 284 mg/dL (65-115); Osmolality Calculated 292 mOsm/kg (285-295); Potassium 3.5 mmol/L (3.5-5.1); Sodium 136 mmol/L (136-145)
--- NOTE | 2022-08-01 13:20 | PM.PN ---
Subjective Subjective: Patient seen in ICU today. No acute events overnight per patient. Though patient did have runs of nonsustained V. tach up to 13 beats twice overnight on telemetry. He denies any nausea, vomiting, headache. Blood pressures were better controlled. Denies any palpitations. Blood sugars better controlled. Overnight insulin drip was discontinued after blood sugars dropped to less than 150. Has been started on a diet and insulin sliding scale. Vitals/I&O/Wt Last Vital Signs Temp 96.9 F L 08/01/22 06:30 Pulse 66 08/01/22 12:00 Resp 17 08/01/22 12:00 BP 167/96 08/01/22 12:00 Pulse Ox 95 08/01/22 12:00 O2 Del Method 08/01/22 12:00 07/31/22 08/01/22 08/01/22 22:59 06:59 14:59 Intake Total 2924.167 / 2924.167 1585 / 4509.167 440 / 440 Output Total 3300 / 3300 Balance 2924.167 / 2924.167 -1715 / 1209.167 440 / 440 Weight last 48 hrs Weight 113.988 kg Weight 120.202 kg Physical Exam Narrative: General: No acute distress, AO x3 HEENT: PERRLA, pupils bilaterally equal and reactive Chest: Normal vesicular breath sounds, no added sounds, equal good air entry bilaterally CVS: S1-S2 regular, no murmurs, no tachycardia, no gallops, no rubs Abdomen: Soft, nontender, no organomegaly, bowel sounds present Neuro: No focal deficits, no facial deformity, AO x3, power 5/5 in all limbs Urinary Catheter Management: Chavez: Cath Placed During This Visit: yes Reason for Continuing Indwelling Catheter: Accurate Measurement of Urinary Output in Critically Ill Patients Urinary Catheter Date of Insertion: 07/31/22 Urinary Catheter Time of Insertion: 18:28 Data 08/01/22 02:03 08/01/22 11:05 Micro: Microbiology 07/31/22 17:50 Blood Culture - Preliminary Blood SPECIMEN COLLECTED A&P Assessment and plan (1) Hyperosmolar non-ketotic state due to type 2 diabetes mellitus: Ketones negative. Anion gap is closed. Continue with normal saline at 100 cc/h. Stop insulin drip. Insulin sliding scale at moderate to high-dose protocol. Lantus 20 units nightly. Monitor BMP in afternoon and then daily if remains stable. Carb consistent diet. Patient will most likely need to be discharged on insulin at home. Patient is agreeable. (2) TIA (transient ischemic attack): CT head negative for any intracranial hemorrhage. Appreciate CTA head and neck and echocardiogram results. Blood pressure less than 140/90 mmHg. Neurochecks every 1 hour (3) Essential hypertension: Takes amlodipine, carvedilol, Imdur at home. Goal blood pressure less than 140/90 mmHg. Continue Coreg at 3.125 mg twice daily, start losartan 50 mg daily. Continue home dose of Imdur. Will uptitrate as per goals. (4) CKD (chronic kidney disease) stage 2, GFR 60-89 ml/min: Baseline creat in system ranging from 1.3-1.5. Currently 1.2. Medical reconciliation done for nephrotoxic drugs. Plan Nonsustained V. tach: Appreciate echocardiogram. EF normal. Patient did not have any symptoms. Cannot rule out underlying CAD given uncontrolled hypertension and diabetes along with history of smoking. Lexiscan stress test in a.m. N.p.o. after midnight. Carb consistent diet. Protonix for PUD prophylaxis Heparin for DVT prophylaxis. To [facility]SU. Attestations Medical Necessity Statement*: Requires further hospitalization for management of hyperosmolar osmotic. In setting of newly diagnosed uncontrolled diabetes mellitus, nonsustained V. tach in setting of uncontrolled hypertension while ACS is ruled out. Time Spent in Patient Care: Greater than 35 minutes Coding Level of Care Code Acute Code for Chg Fwd Diagnoses Hyperosmolar non-ketotic state due to type 2 diabetes mellitus E11.00 TIA (transient ischemic attack) G45.9 Essential hypertension I10 CKD (chronic kidney disease) stage 2, GFR 60-89 ml/min N18.2
--- NOTE | 2022-08-01 13:36 | PC.NURSE ---
Patient and belongings taken to room 102. Report given to Enmanuel WATSON.
[2022-08-01 14:51] LABS: Glucose Point of Care 331 mg/dL (70-110)
[2022-08-01 16:37] LABS: Glucose Point of Care 281 mg/dL (70-110)
[2022-08-01] MEDS: pantoprazole 40 mg SDV IVP (17:14)
[2022-08-01 21:01] LABS: Glucose Point of Care 268 mg/dL (70-110)
[2022-08-02] VITALS (15 sets, daily range): BP systolic 159–214; BP diastolic 90–182; PULSE 67–99; RESP 16–24; TEMP 36.8–36.9; O2SAT 92–97
--- NOTE | 2022-08-02 01:06 | PC.NURSE ---
Spoke with regarding patient with elevated BPs, on IV fluids. ordered to start amlodipine and D/C IV fluids.
[2022-08-02] MEDS: amlodipine 10 mg Tablet PO (01:41)
[2022-08-02 03:13] LABS: Basophils % 0.4 %; Eosinophils # 0.2 10^3/uL (0.0-0.8); Eosinophils % 2.4 %; Hematocrit 40.4 % (42.0-52.0); Hemoglobin 13.9 g/dL (11.7-16.6); Lymphocytes % 24.4 %; Mean Corpuscular HGB Conc 34.4 g/dL (30.0-36.0); Mean Corpuscular Hemoglobin 29.2 pg (28.0-34.0); Mean Corpuscular Volume 84.9 fl (80-94); Monocytes # 0.6 10^3/uL (0.2-0.9); Monocytes % 6.8 %; Neutrophils # 5.27 10^3/uL (1.8-7.7); Neutrophils % 65.6 %; Nucleated Red Blood Cells % 0 %; Platelet Count 150 10^3/cmm (130-400); Red Blood Count 4.76 10^6/uL (4.1-5.3); Red Cell Distribution Width 12.5 % (12.1-15.1)
[2022-08-02 03:46] LABS: Alanine Aminotransferase 49 U/L (0-41); Albumin Level 3.6 g/dL (3.5-5.2); Alkaline Phosphatase 109 U/L (40-130); Anion Gap 12.5 (5-19); Aspartate Amino Transferase 32 U/L (0-40); Blood Urea Nitrogen 12 mg/dL (6-20); Calcium 8.6 mg/dL (8.5-10.5); Carbon Dioxide 24 mmol/L (22-29); Chloride 105 mmol/L (98-107); Globulin 2.7 g/dL (1.3-4.6); Glomerular Filtration Rate 86.4 mL/min (90-130); Glucose 160 mg/dL (65-115); Osmolality Calculated 289 mOsm/kg (285-295); Potassium 3.5 mmol/L (3.5-5.1); Sodium 138 mmol/L (136-145); Total Bilirubin 0.3 mg/dL (0.15-1.2); Total Protein 6.3 g/dL (6.6-8.7)
[2022-08-02] MEDS: heparin 5,000 unit/mL INJ 1 mL 5000 UNIT SUBCUT (05:47)
[2022-08-02 07:03] LABS: Glucose Point of Care 144 mg/dL (70-110)
[2022-08-02] MEDS: regadenoson 0.4 Mg/5 ml Syringe IVP (07:27)
--- NOTE | 2022-08-02 08:21 | NMCV_ITS ---
NM krishna perf SPECT r/s* [id number] Leo Arredondo Age: 57 Gender: M : 1965 Exam Date: 08/02/2022 08:21 Ordering Phys: Primo Garcia MD Technologist: JABARI Nieto Exam Location: [facility] Indications: CHEST PAIN STRESS TEST Please see separate stress test report in [facility] for full findings IMAGE PROTOCOL Rest/Stress 1 Lexiscan Day Radiopharmaceutical Dose (mCi) Administration Site Administered by Rest: Tc-99m 10.7 IV JABARI Hugo Sestamibi Stress:Tc-99m 33.0 IV JABARI Hugo Sestamibi Rest: 02-Aug-2022 60 Discovery 630 Stress: 02-Aug-2022 30 Discovery 630 0.4mg Lexiscan. Images obtained in supine and prone position. SPECT RESULTS Technical Quality: Excellent Raw Data Analysis: Normal Image Corrections: No attenuation or motion correction applied Summed Stress Score: 0 Summed Rest Score: 0 Summed Difference Score: 0 PERFUSION FINDINGS SPECT images demonstrate homogeneous tracer distribution throughout the myocardium. No significant perfusion abnormalities . FUNCTIONAL RESULTS (calculated via Gated SPECT) Stress Image LV EF (%): 71 Stress EDV (mL):123 TID: 0.9 Stress ESV (mL):36 FUNCTIONAL FINDINGS: Segmental wall motion analysis revealing no gross wall motion abnormalities IMPRESSIONS 1. Unremarkable Myocardial perfusion imaging 2. Normal LV ejection fraction 71% 3. LV wall motion analysis revealing no gross wall motion abnormalities. 4. Normal LV volume Low probability for coronary ischemia, based on the above findings Dr Ariana Lopez MD FAC (Electronically Signed) Final Date: 02 August 2022 10:39 S
[2022-08-02] MEDS: isosorbide mononitrate ER 30 mg Tablet PO (08:53)
[2022-08-02] MEDS: losartan 50 mg Tablet 100 MG PO (08:54)
[2022-08-02] MEDS: carvedilol 3.125 mg Tablet PO (08:54)
[2022-08-02] MEDS: atorvastatin 40 mg Tablet PO (08:55)
[2022-08-02] MEDS: aspirin 81 mg EC Tablet PO (08:55)
[2022-08-02] MEDS: insulin lispro 100 unit/1 mL SUBCUT (12:07)
[2022-08-02 12:28] LABS: Glucose Point of Care 424 mg/dL (70-110)
[2022-08-02 12:28] LABS: Glucose Point of Care 383 mg/dL (70-110)
--- NOTE | 2022-08-02 13:22 | P.DS_ITS ---
Discharge Providers Date of Admission: 07/31/22 17:15 Date of Discharge: August 02, 2022 Attending Provider at Admission: Primo Garcia MD Attending Provider at Discharge: Primo Garcia MD Primary Care Provider: Vani Piper APN Diagnoses at Discharge Discharge Diagnosis (1) Hyperosmolar non-ketotic state due to type 2 diabetes mellitus: Status: Acute (2) TIA (transient ischemic attack): Status: Acute (3) Essential hypertension: Status: Acute (4) CKD (chronic kidney disease) stage 2, GFR 60-89 ml/min: Status: Acute Reason for Visit Reason for Visit: High Blood Sugar Hospital Course Hospital Course Leo Arredondo is a 57 year old male with past medical history of uncontrolled hypertension 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 Prior to that patient stated he has been having symptoms of excessive thirst, excessive urination for last 3 to 4 weeks for which he saw his primary care today.? Patient does not give any history of diabetes in the past.? States he has been taking his antihypertensives regularly.? States he has been coming down on his smoking and currently smokes 2 packs a week. ER course: In ER patient was found to have hyperosmolar state for which he received 2 L of IV fluids and was started on insulin drip.? CT head was done which was negative. Patient was admitted to hospital further evaluation and management of hyperosmolar ketotic state in setting of undiagnosed type 2 diabetes mellitus. He was admitted to the ICU and started on IV hydration and insulin drip at start. His blood sugars improved and mild anion gap acidosis also resolved rapidly. Eventually he was started on a diet along with insulin sliding scale. On admission he did complain of occasional weakness in the left leg for which stroke was ruled out with a negative CT and CTA head and neck. He continued to have uncontrolled diabetes and blood pressure during hospitalization for which multiple medication changes were done. He also had 2 runs of nonsustained V. tach. Given his history of smoking, uncontrolled diabetes and hypertension there is a high concern for ACS. He underwent Lexiscan stress test on 08/02 wh ich ruled out acute ischemia. He was then discharged home on oral antihypertensives and insulin for uncontrolled diabetes and hypertension with advised to follow-up with his primary care provider within next 2 weeks for the blood pressure and blood sugar diary. Details were discussed in detail with the patient and he verbalized understanding. He is advised to check his blood pressures twice daily at home and blood sugars 3 times prior to each meal. Physical Exam Narrative: General: No acute distress, AO x3 HEENT: PERRLA, pupils bilaterally equal and reactive Chest: Normal vesicular breath sounds, no added sounds, equal good air entry bilaterally CVS: S1-S2 regular, no murmurs, no tachycardia, no gallops, no rubs Abdomen: Soft, nontender, no organomegaly, bowel sounds present Neuro: No focal deficits, no facial deformity, AO x3, power 5/5 in all limbs Urinary Catheter Management: Chavez: Cath Placed During This Visit: yes Reason for Continuing Indwelling Catheter: Acute Urinary Retention or Obstruct ion Urinary Catheter Date of Insertion: 07/31/22 Urinary Catheter Time of Insertion: 18:28 Discharge Data Studies Completed and Pending Completed Studies During Hospitalization Category Date Time Status CT head wo con* [id number] Stat Cat Scan 07/31/22 14:39 Completed CTA head neck [CT angio headneck* [id number]] Stat Cat Scan 07/31/22 15:37 Completed Sestamibi Stress Test Request Routine Exams 08/01/22 08:21 Completed NM krishna perf SPECT r/s* [id number] Routine Nuc Med 08/02/22 08:21 Completed CV. echo complete* [id number] Routine Ultrasound 07/31/22 18:12 Completed Pending at discharge Category Date Time Status Blood Culture Stat Lab 07/31/22 17:42 Results Miscellaneous Test Stat Lab 07/31/22 12:00 Received Radiology Impressions Head CT 07/31/22 14:39 IMPRESSION: 1. No CT evidence of acute intracranial pathology. 2. Additional findings, as above. Head/Neck CTA 07/31/22 15:37 IMPRESSION: No large vessel occlusion. No acute intracranial pathology. IMPRESSION: No hemodynamically significant stenosis or occlusion. REFERENCES: NASCET CRITERIA. The degree of stenosis in the cervical segment of the internal carotid artery is based on NASCET criteria. Normal is no stenosis. Mild is less than 50% stenosis. Moderate is 50-69% stenosis. Severe is 70% to 99% stenosis. Total occlusion is no detectable patent lumen. Echocardiogram: CONCLUSIONS ?Normal left ventricular size and systolic function, EF 68 %. No ?regional wall motion abnormalities ?Mild to moderate concentric left ventricular hypertrophy.? ?Trace mitral valve regurgitation. ?Normal cardiac chamber sizes. ?Minimally thickened aortic valve ?There is no pericardial effusion. ?There are no intracardiac masses. ?Compared to the study from 08/15/2020, there may not be a ?significant change ?Dr Ariana Lopez MD [facility] ?(Electronically Signed) ?Final Date:? ? ? 01 August 2022 ? 08:13 Lexiscan stress test: PERFUSION FINDINGS ?SPECT images demonstrate homogeneous tracer distribution throughout the ?myocardium.? No significant perfusion abnormalities . ?FUNCTIONAL RESULTS ? ? (calculated via Gated SPECT) ? Stress Image LV EF (%):? ? 71 ? Stress EDV (mL):123? TID:? 0.9 ? Stress ESV (mL):36 ?FUNCTIONAL FINDINGS: ?Segmental wall motion analysis revealing no gross wall motion abnormalities ?IMPRESSIONS ?1.? Unremarkable Myocardial perfusion imaging ?2.? Normal LV ejection fraction 71% ?3.? LV wall motion analysis revealing no gross wall motion abnormalities. ?4.? Normal LV volume ?Low probability for coronary ischemia, based on the above findings ?Dr Ariana Lopez MD [facility] ?(Electronically Signed) ?Final Date:? ? ? 02 August 2022 ? 10:39 Laboratory Results WBC 8.0 10^3/uL (4.0-10.0) 08/02/22 02:25 RBC 4.76 10^6/uL (4.1-5.3) 08/02/22 02:25 Hgb 13.9 g/dL (11.7-16.6) 08/02/22 02:25 Hct 40.4 % (42.0-52.0) L 08/02/22 02:25 MCV 84.9 fl (80-94) 08/02/22 02:25 MCH 29.2 pg (28.0-34.0) 08/02/22 02:25 MCHC 34.4 g/dL (30.0-36.0) 08/02/22 02:25 RDW 12.5 % (12.1-15.1) 08/02/22 02:25 Plt Count 150 10^3/cmm (130-400) 08/02/22 02:25 MPV 12.0 fL (7.4-10.4) H 08/02/22 02:25 Neut % (Auto) 65.6 % 08/02/22 02:25 Lymph % (Auto) 24.4 % 08/02/22 02:25 [place] % (Auto) 6.8 % 08/02/22 02:25 Eos % (Auto) 2.4 % 08/02/22 02:25 Baso % (Auto) 0.4 % 08/02/22 02:25 Neut # (Auto) 5.27 10^3/uL (1.8-7.7) 08/02/22 02:25 Lymph # (Auto) 2.0 10^3/uL (0.8-4.8) 08/02/22 02:25 [place] # (Auto) 0.6 10^3/uL (0.2-0.9) 08/02/22 02:25 Eos # (Auto) 0.2 10^3/uL (0.0-0.8) 08/02/22 02:25 Baso # (Auto) 0.0 10^3/uL (0.0-0.1) 08/02/22 02:25 Nucleated RBC % (auto) 0 % 08/02/22 02:25 Nucleated RBCs # 0.0 /100WBC 08/02/22 02:25 ESR mm/hr (0-10) 07/31/22 12:00 Sodium 138 mmol/L (136-145) 08/02/22 02:25 Potassium 3.5 mmol/L (3.5-5.1) 08/02/22 02:25 Chloride 105 mmol/L (98-107) 08/02/22 02:25 Carbon Dioxide 24 mmol/L (22-29) 08/02/22 02:25 Anion Gap 12.5 (5-19) 08/02/22 02:25 BUN 12 mg/dL (6-20) 08/02/22 02:25 Creatinine 0.9 mg/dL (0.7-1.2) 08/02/22 02:25 GFR Calculation 86.4 mL/min (90-130) L 08/02/22 02:25 Glucose 160 mg/dL (65-115) H 08/02/22 02:25 POC Glucose 383 mg/dL (70-110) H 08/02/22 12:05 Calculated Osmolality 289 mOsm/kg (285-295) 08/02/22 02:25 Calcium 8.6 mg/dL (8.5-10.5) 08/02/22 02:25 Phosphorus 2.9 mg/dL (2.5-4.5) 08/01/22 02:03 Magnesium 2.0 mg/dL (1.7-2.3) 08/01/22 02:03 Iron 93 ug/dL (59-158) 07/31/22 17:42 TIBC 225 mcg/dl 07/31/22 17:42 % Saturation 41.3 % (20-50) 07/31/22 17:42 Unsat Iron Binding 132 ug/dL (112-347) 07/31/22 17:42 Total Bilirubin 0.3 mg/dL (0.15-1.2) 08/02/22 02:25 AST 32 U/L (0-40) 08/02/22 02:25 ALT 49 U/L (0-41) H 08/02/22 02:25 Alkaline Phosphatase 109 U/L (40-130) 08/02/22 02:25 Troponin T Baseline 15 ng/L (0-15) 07/31/22 23:34 Troponin T 120 Minute 17.31 ng/L (0-15) H 08/01/22 02:03 Delta Troponin T 2.31 ABS# (0-10) 08/01/22 02:03 Troponin T Hi Sens 6Hr 13.61 ng/L (0-15) 08/01/22 05:34 Troponin T Hi Sens 6Hr Delta -1.39 ng/L (0-12) L 08/01/22 05:34 Total Protein 6.3 g/dL (6.6-8.7) L 08/02/22 02:25 Albumin 3.6 g/dL (3.5-5.2) 08/02/22 02:25 Globulin 2.7 g/dL (1.3-4.6) 08/02/22 02:25 Triglycerides 287 mg/dL (0-150) H 08/01/22 02:03 Cholesterol 103 mg/dL (0-200) 08/01/22 02:03 LDL Cholesterol, Calc 22 mg/dL (50-129) L 08/01/22 02:03 Total VLDL Cholesterol 57 mg/dL (0-30) H 08/01/22 02:03 HDL Cholesterol 24 mg/dL (60-100) L 08/01/22 02:03 Cholesterol/HDL Ratio 4.29 mg/dL (1.0-5.00) 08/01/22 02:03 Vitamin B12 1245 pg/mL (232-1245) 07/31/22 17:42 Folate 14.5 ng/mL (4.5-32.2) 07/31/22 17:42 TSH 0.69 uIU/mL (0.27-4.20) 07/31/22 17:42 Urine Color Yellow (Yellow) 07/31/22 14:54 Urine Appearance Clear (CLEAR) 07/31/22 14:54 Urine pH 6 (5-7) 07/31/22 14:54 Ur Specific [place] 1.010 (1.005-1.030) 07/31/22 14:54 Urine Protein Neg (Negative) 07/31/22 14:54 Urine Glucose (UA) 4+ (Normal) H 07/31/22 14:54 Urine Ketones Negative (Negative) 07/31/22 14:54 Urine Blood Neg (Negative) 07/31/22 14:54 Urine Nitrate Negative (Negative) 07/31/22 14:54 Urine Bilirubin Neg (Negative) 07/31/22 14:54 Urine Urobilinogen Norm mg/dL (Negative) 07/31/22 14:54 Ur Leukocyte Esterase Negative (Negative) 07/31/22 14:54 Urine Opiates Screen Negative ng/mL (Negative) 07/31/22 18:30 Ur Barbiturates Screen Negative ng/mL (Negative) 07/31/22 18:30 Ur Phencyclidine Scrn Negative ng/mL (Negative) 07/31/22 18:30 Ur Amphetamines Screen Positive ng/mL (Negative) H 07/31/22 18:30 U Benzodiazepines Scrn Negative ng/mL (Negative) 07/31/22 18:30 Urine Cocaine Screen Negative ng/mL (Negative) 07/31/22 18:30 U Marijuana (THC) Screen Negative ng/mL (Negative) 07/31/22 18:30 Serum Ketones Negative (Negative) 07/31/22 15:40 Vitals Last Vital Signs Temp 98.5 F 08/02/22 11:12 Pulse 99 08/02/22 11:12 Resp 19 H 08/02/22 11:12 BP 159/95 08/02/22 11:12 Pulse Ox 97 08/02/22 11:12 O2 Del Method 08/02/22 11:12 Discharge Plan Discharge Patient Disposition: Home Condition: Stable Prescriptions: New losartan 50 mg Tablet 100 mg PO DAILY 30 Days Qty: 60 0RF Basaglar KwikPen U-100 Insulin 100 unit/mL (3 mL) insulin pen 20 unit SUBCUT BID Qty: 15 0RF insulin lispro 100 unit/mL insulin pen 3 unit SUBCUT TID Qty: 15 0RF (DME) blood-glucose meter Misc See Rx Instructions .Route Qty: 1 0RF Rx Instructions: As directed aspirin 81 mg capsule 81 mg PO DAILY Qty: 30 0RF Continued Lasix 40 mg tablet 40 mg PO DAILY Qty: 90 3RF atorvastatin 40 mg tablet 40 mg PO DAILY potassium chloride 20 mEq tablet,ER particles/crystals 20 meq PO DAILY Changed Coreg 6.25 mg tablet 12.5 mg PO BID 30 Days Qty: 10 2RF Rx Instructions: must administer with a meal/food isosorbide mononitrate 30 mg tablet extended release 24 hr 60 mg PO DAILY 30 Days Qty: 60 3RF amlodipine 10 mg tablet 10 mg PO DAILY 30 Days Qty: 30 0RF Discharge Orders: Discharge Order (Routine); Ordered 08/02/22 Ordered By: Primo Garcia Referrals: Vani Piper FNP [Primary Care Provider] - 08/07/22 10:30 am Reji Lee MD [Hospitalist] - 2 weeks Harry Garcia MD [Physician] - 1 month Discharge Diet: Cardiac and Diabetic Discharge Activity: Resume usual activity and Increase activity as tolerated Patient Instructions: Diabetes and Diet, Losartan (By mouth) (Cozaar), Insulin Lispro Protamine/Insulin Lispro (By injection) (HumaLOG Mix..., Insulin Glargine (By injection) (Lantus, Lantus SoloStar, Toujeo, Semglee), Insulin Pens (DC), Diabetes and Nutrition (DC), Diabetes and Exercise (ED), Diabetes and Exercise (DC), Diabetes and Exercise (GEN), How to Check your Blood Sugar (DC), Opioid Safety Activity Restrictions/Additional Instructions: Please check your blood pressure and blood sugar daily at home and maintain a blood pressure and sugar diary and follow-up with a primary care provider within next 2 weeks for further adjustment of medications. Multiple medication changes have been done. Dose of Imdur has been increased to 60 mg. Dose of Coreg has been increased to 12.5 mg twice daily. Losartan 100 mg daily has been added to her medication list. For diabetes you need to take Lantus 20 units morning and evening along with lispro before each meal 3 units. Discharge Attestations Time Spent in Discharge Care*: greater than 30 min Specific Discharge Activities: educating patient, educating and/or supporting family/caregiver, discussing with pcp/other providers, discussing with rifle case repairer/social workers/dc planners, documenting/other paperwork and evaluating patient/reviewing data Status at Discharge: Cognitive status at discharge: cognitively intact , Behavioral status at discharge: cooperative , Functional status at discharge: independent ambulation , Overall status at discharge: patient is back to baseline Quality Metrics Clinical Quality Measures [ No reported AMI, CVA or VTE this stay] Coding Level of Care Code Acute Chg FW DC note Diagnoses Hyperosmolar non-ketotic state due to type 2 diabetes mellitus E11.00 TIA (transient ischemic attack) G45.9 Essential hypertension I10 CKD (chronic kidney disease) stage 2, GFR 60-89 ml/min N18.2
--- NOTE | 2022-08-02 15:42 | PC.NURSE ---
Patient received detailed instructions on how to use insulin pens, check blood sugar, follow a diabetic diet, and new blood pressure medications. Patient and family verbalized understanding of all instructions. Glucometer was purchased by family member and brought back to the room and I showed the patient how to check his blood sugar. Nurse brought her own insulin pens in to demonstrate how to use them. Prescriptions were delivered to patient via meds to bed. Patient ambulated with nurse to the main entrance.
[2022-08-06 15:19] LABS: Erythrocyte Sedimentation Rate 2 mm/hr (0-10)
== END 2022-08-02 15:35 | disposition home or self-care (01) | DRG 638 ==
LOC: ER 16:42 → ICU 17:16 → CSU 08-01 13:12
PROVIDERS: Family Medicine; Admitting Provider Student in an Organized Health Care Education/Training Program; Emergency Provider Emergency Medicine; PCP Nurse Practitioner; Visit Provider Student in an Organized Health Care Education/Training Program
DX: E11.00 Type 2 diabetes mellitus with hyperosmolarity without nonketotic hyperglycemic-hyperosmolar coma (NKHHC) (principal); I47.20 Ventricular tachycardia, unspecified; E11.22 Type 2 diabetes mellitus with diabetic chronic kidney disease; I12.9 Hypertensive chronic kidney disease with stage 1 through stage 4 chronic kidney disease, or unspecified chronic kidney disease; N18.2 Chronic kidney disease, stage 2 (mild); F17.210 Nicotine dependence, cigarettes, uncomplicated; N40.0 Benign prostatic hyperplasia without lower urinary tract symptoms; E26.01 Conn's syndrome
CPT/HCPCS: 36415; 36416; 51702; 70450; 70496; 70498; 78452; 80048; 80053; 80061; 80306; 81000; 81003; 82009; 82607; 82746; 82962; 83036; 83540; 83550; 83735; 84100; 84443; 84484; 85025; 85651; 87040; 93005; 93017; 93306; 96365; 96366; 96372; 96374; 96375; 99285; A9500; C9113; J1644; J1815; J2785; J3480; J7030; J7050; Q9967

== ENCOUNTER → 2022-09-03 15:13 | Outpatient (BNVA) | payer OTHER, SELFPAY | PROVIDERS: PCP Nurse Practitioner; Visit Provider Internal Medicine | DX: E11.00 Type 2 diabetes mellitus with hyperosmolarity without nonketotic hyperglycemic-hyperosmolar coma (NKHHC) (principal); N18.2 Chronic kidney disease, stage 2 (mild); E78.2 Mixed hyperlipidemia | CPT/HCPCS: 36415; 80048; 84681; 86337; 86341 ==

== ENCOUNTER 2023-03-21 11:13 | Outpatient (CLI) | payer OTHER, SELFPAY ==
[2023-03-21 12:27] LABS: Estmated Average Glucose 126
[2023-03-21 12:41] LABS: Creatinine Urine, Random 141 mg/dL (39-259); Microalbumin Random Urine 8 ug/dL (0-20)
[2023-03-21 12:42] LABS: Microalbum Creatinine Ratio Ur 57 mg/dL (0-20)
[2023-03-21 12:44] LABS: Alanine Aminotransferase 49 U/L (0-41); Albumin Level 4.6 g/dL (3.5-5.2); Alkaline Phosphatase 121 U/L (40-130); Anion Gap 13.9 (5-19); Aspartate Amino Transferase 36 U/L (0-40); Blood Urea Nitrogen 14 mg/dL (6-20); Calcium 9.3 mg/dL (8.5-10.5); Carbon Dioxide 29 mmol/L (22-29); Chloride 103 mmol/L (98-107); Chol HDL Ratio 4.69 mg/dL (1.0-5.00); Cholesterol 150 mg/dL (0-200); Globulin 3.4 g/dL (1.3-4.6); Glomerular Filtration Rate 56.5 mL/min (90-130); Glucose 92 mg/dL (65-115); HDL Cholesterol 32 mg/dL (60-100); LDL Cholesterol Calculated 91 mg/dL (50-129); LDL HDL Ratio 2.84 RATIO (0.00-3.22); Osmolality Calculated 294 mOsm/kg (285-295); Potassium 3.9 mmol/L (3.5-5.1); Sodium 142 mmol/L (136-145); Total Bilirubin 0.6 mg/dL (0.15-1.2); Triglycerides 135 mg/dL (0-150)
== END 2023-03-21 11:14 | disposition home or self-care (01) ==
LOC: LAB 11:17
PROVIDERS: PCP Nurse Practitioner; Visit Provider Internal Medicine
DX: E78.2 Mixed hyperlipidemia (principal); E11.22 Type 2 diabetes mellitus with diabetic chronic kidney disease; E11.65 Type 2 diabetes mellitus with hyperglycemia; N18.2 Chronic kidney disease, stage 2 (mild)
CPT/HCPCS: 36415; 80053; 80061; 82044; 83036

== ENCOUNTER 2023-09-19 15:16 | Outpatient (CLI) | payer OTHER, SELFPAY ==
[2023-09-19 16:12] LABS: Creatinine Urine, Random 44 mg/dL (39-259); Microalbumin Random Urine 3 ug/dL (0-20)
[2023-09-19 16:13] LABS: Microalbum Creatinine Ratio Ur 68 mg/dL (0-20)
[2023-09-19 16:14] LABS: Alanine Aminotransferase 87 U/L (0-41); Albumin Level 4.3 g/dL (3.5-5.2); Alkaline Phosphatase 126 U/L (40-130); Aspartate Amino Transferase 54 U/L (0-40); Blood Urea Nitrogen 15 mg/dL (8-23); Calcium 8.8 mg/dL (8.5-10.5); Carbon Dioxide 28 mmol/L (22-29); Chloride 102 mmol/L (98-107); Chol HDL Ratio 3.87 mg/dL (1.0-5.00); Cholesterol 116 mg/dL (0-200); Globulin 3.3 g/dL (1.3-4.6); Glomerular Filtration Rate 56.3 mL/min (90-130); Glucose 284 mg/dL (65-115); HDL Cholesterol 30 mg/dL (60-100); LDL Cholesterol Calculated 42 mg/dL (50-129); Osmolality Calculated 299 mOsm/kg (285-295); Sodium 139 mmol/L (136-145); Total Bilirubin 0.5 mg/dL (0.15-1.2); Total Protein 7.6 g/dL (6.6-8.7); Triglycerides 219 mg/dL (0-150)
[2023-09-19 16:23] LABS: Estmated Average Glucose 140; Hemoglobin A1C 6.5 % (4.0-6.0)
== END 2023-09-19 15:17 | disposition home or self-care (01) ==
LOC: LAB 15:18
PROVIDERS: PCP Nurse Practitioner; Visit Provider Internal Medicine
DX: E78.2 Mixed hyperlipidemia (principal); E11.9 Type 2 diabetes mellitus without complications
CPT/HCPCS: 80053; 80061; 82044; 83036

== ENCOUNTER 2023-12-23 14:32 | Outpatient (CLI) | payer OTHER, SELFPAY ==
[2023-12-23 15:42] LABS: Estmated Average Glucose 151; Hemoglobin A1C 6.9 % (4.0-6.0)
[2023-12-23 15:49] LABS: Alanine Aminotransferase 75 U/L (0-41); Albumin Level 4.1 g/dL (3.5-5.2); Alkaline Phosphatase 131 U/L (40-130); Anion Gap 15.4 (5-19); Aspartate Amino Transferase 42 U/L (0-40); Blood Urea Nitrogen 20 mg/dL (8-23); Carbon Dioxide 24 mmol/L (22-29); Chloride 105 mmol/L (98-107); Chol HDL Ratio 3.38 mg/dL (1.0-5.00); Cholesterol 115 mg/dL (0-200); Globulin 3.3 g/dL (1.3-4.6); Glomerular Filtration Rate 56.3 mL/min (90-130); Glucose 180 mg/dL (65-115); HDL Cholesterol 34 mg/dL (60-100); LDL Cholesterol Calculated 44 mg/dL (50-129); LDL HDL Ratio 1.29 RATIO (0.00-3.22); Osmolality Calculated 299 mOsm/kg (285-295); Potassium 3.4 mmol/L (3.5-5.1); Sodium 141 mmol/L (136-145); Total Bilirubin 0.5 mg/dL (0.15-1.2); Total Protein 7.4 g/dL (6.6-8.7); Triglycerides 185 mg/dL (0-150)
[2023-12-23 15:56] LABS: Creatinine Urine, Random 57 mg/dL (39-259); Microalbumin Random Urine 3 ug/dL (0-20)
[2023-12-23 15:57] LABS: Microalbum Creatinine Ratio Ur 53 mg/dL (0-20)
== END 2023-12-23 14:33 | disposition home or self-care (01) ==
LOC: LAB 14:35
PROVIDERS: PCP Nurse Practitioner; Visit Provider Internal Medicine
DX: E78.2 Mixed hyperlipidemia (principal)
CPT/HCPCS: 36415; 80053; 80061; 82044; 83036

== ENCOUNTER → 2025-01-24 16:16 | Outpatient (BNVA) | payer OTHER, SELFPAY | PROVIDERS: PCP Nurse Practitioner Family; Visit Provider Nurse Practitioner Family | DX: I10 Essential (primary) hypertension (principal); E78.2 Mixed hyperlipidemia; I50.9 Heart failure, unspecified; N18.2 Chronic kidney disease, stage 2 (mild); Z12.5 Encounter for screening for malignant neoplasm of prostate | CPT/HCPCS: 80053; 80061; 81003; 82306; 83036; 84443; 85025; G0103 ==

== ENCOUNTER → 2025-02-03 16:26 | Outpatient (BNVA) | payer OTHER, SELFPAY | PROVIDERS: PCP Nurse Practitioner Family; Visit Provider Nurse Practitioner Family | DX: I10 Essential (primary) hypertension (principal); R79.89 Other specified abnormal findings of blood chemistry | CPT/HCPCS: 80053; 82570; 83735; 84100; 84156 ==

== ENCOUNTER 2025-02-04 17:24 | Observation (INO) | payer OTHER, SELFPAY ==
[2025-02-04 17:31] VITALS: BP 153/85; PULSE 89; RESP 16; TEMP 36.7; O2SAT 94; BMI 33.2
--- OUTSIDE RECORDS SUMMARY | 2025-02-04 17:31 | XMS_ITS | Encounter Summary ---
Author Organization [facility] Address [address] [place] [address] Care Team Providers Care Retail Greeter Name Role Phone Scarlett Galindo Primary Care Provider Encounter Details Date Type Department Care Team (Latest Contact Info) Description 06/20/2008 Outpatient [facility] [address] [address] Isaak Garcia MD [address] [place] [address] Unspecified Arthropathy, Site Unspecified; Tobacco Use Disorder; Accidental Fall on or from Other Stairs or Steps; Unspecified Place of Occurrence Social History Tobacco Use Types Packs/Day Years Used Date Smoking Tobacco: Never Assessed Sex and Gender Information Value Date Recorded Sex Assigned at Not on file Legal Sex Male 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
--- OUTSIDE RECORDS SUMMARY | 2025-02-04 17:31 | XMS_ITS | Encounter Summary ---
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 Gender Identity Not on file Sexual Orientation Not on file documented as of this encounter Plan of Treatment Not on file documented as of this encounter Procedures Procedure Name Priority Date/Time Associated Diagnosis Comments MRI KNEE WO CONTRAST LEFT Routine 06/15/2008 1:03 PM COOKER SULFATE documented in this encounter Results * MRI KNEE WO CONTRAST LEFT (06/15/2008 1:03 PM COOKER SULFATE) Anatomical Region Laterality Modality Lower Extremity Other 06/15/2008 1:03 PM COOKER SULFATE Narrative 06/15/2008 3:37 PM COOKER SULFATE Exam: MRI - Knee Lt w/o Date/Time of Exam: Jun 15, 2008 1:03:52 PM History: left knee pain, fall, probable quadricep tendon/muscle rupture. Technique: Proton density sagittal, T1 coronal, T2 fat-sat sagittal and axial, STIR coronal. Comparison: None. Findings: The ACL, PCL, MCL, and LCL complex appear intact. A moderate to large effusion of the suprapatellar pouch is noted. Small dissecting popliteal cyst is present. Small amount of perifascial fluid dissecting about the inferior margin of the medial head of the gastrocnemius is identified consistent with leak/rupture. Probable shallow fissure involving the junction of the apex and lateral articular facet of the patella is noted. A fluid/fluid level within the suprapatellar pouch is noted consistent with hemarthrosis. Feathery intrinsic signal abnormality on fluid-sensitive sequences within the musculotendinous junction of the vastus lateralis is identified consistent with a grade 1 strain. Small amount of perifascial fluid distally is seen. The tendon of the vastus lateralis remains inserting on the lateral aspect of the upper pole of the patella. Feathery intrinsic signal abnormality on fluid-sensitive sequences within the vastus medialis is identified. Fibers of the vastus medialis and vastus intermedius remain inserting on the upper pole of the patella. Full thickness tear of the presumed rectus femoris tendinous component of the quadriceps tendon is noted with an approximately 0.8 cm in size gap present. Buckling of the infrapatellar tendon is noted. The extensor mechanism is otherwise unremarkable. No unequivocal grade 3 meniscal signal to suggest a definite arthroscopically visible meniscal tear is seen. Assessment for meniscal pathology is somewhat limited on this examination secondary to the large [id number] to include the distal aspect of the quadriceps musculature. No additional osseous or soft tissue signal abnormality is identified. A grade 2 strain of the anterior aspect of the vastus medialis is noted as well. Impression: 1. Full thickness tear/rupture of the rectus femoris tendinous component of the conjoined tendinous quadriceps tendon insertion on the upper pole of the patella as described above consistent with a grade 2 partial thickness tear. 2. Grade 1 strain of the vastus lateralis and vastus medialis musculotendinous junctions. 3. Moderate to large in size hemarthrosis. 4. Small mildly complex dissecting popliteal cyst with probable leak/rupture. 5. Grade 2 strain of the anterior aspect of the vastus medialis identified anteriorly. - Dictated By: Ratna aSravia M.D. Electronically Signed By: Ratna Saravia M.D. Date Signed: 06/15/08 Procedure Note Adrianna Saravia - 06/15/2008 Exam: MRI - Knee Lt w/o Date/Time of Exam: Jun 15, 2008 1:03:52 PM History: left knee pain, fall, probable quadricep tendon/muscle rupture. Technique: Proton density sagittal, T1 coronal, T2 fat-sat sagittal andaxial, STIR coronal. Comparison: None. Findings: The ACL, PCL, MCL, and LCL complex appear intact. A moderate tolarge effusion of the suprapatellar pouch is noted. Small dissecting popliteal cyst is present.Small amount of perifascial fluid dissecting about the inferior margin of the medial head of thegastrocnemius is identified consistent with leak/rupture. Probable shallow fissure involving thejunction of the apex and lateral articular facet of the patella is noted. A fluid/fluid level within thesuprapatellar pouch is noted consistent with hemarthrosis. Feathery intrinsic signal abnormality onfluid- sensitive sequences within the musculotendinous junction of the vastus lateralis is identifiedconsistent with a grade 1 strain. Small amount of perifascial fluid distally is seen. The tendon of thevastus lateralis remains inserting on the lateral aspect of the upper pole of the patella. Feathery intrinsicsignal abnormality on fluid-sensitive sequences within the vastus medialis is identified. Fibersof the vastus medialis and vastus intermedius remain inserting on the upper pole of the patella. Fullthickness tear of the presumed rectus femoris tendinous component of the quadriceps tendon is noted withan approximately 0.8 cm in size gap present. Buckling of the infrapatellar tendon is noted. Theextensor mechanism is otherwise unremarkable. No unequivocal grade 3 meniscal signal to suggest a definitearthroscopically visible meniscal tear is seen. Assessment for meniscal pathology is somewhatlimited on this examination secondary to the large [id number] to include the distal aspect of thequadriceps musculature. No additional osseous or soft tissue signal abnormality is identified. Agrade 2 strain of the anterior aspect of the vastus medialis is noted as well. Impression: 1. Full thickness tear/rupture of the rectus femoris tendinous componentof the conjoined tendinous quadriceps tendon insertion on the upper pole of the patella as describedabove consistent with a grade 2 partial thickness tear. 2. Grade 1 strain of the vastus lateralis and vastus medialismusculotendinous junctions. 3. Moderate to large in size hemarthrosis. 4. Small mildly complex dissecting popliteal cyst with probableleak/rupture. 5. Grade 2 strain of the anterior aspect of the vastus medialis identifiedanteriorly. - Dictated By: Ratna Saravia M.D. Electronically Signed By: Ratna Saravia M.D. Date Signed: 06/15/08 us Heber Collazo MD MR ORDERABLES Final Resu lt documented in this encounter Visit Diagnoses Not on filedocumented in this encounter Care Teams Developer Support Engineer Relationship Specialty Start Date End Date Scarlett Galindo FNP [address] [place] [id number] PCP - General NURSE PRACTITIONER 10/04/12 documented as of this encounter
--- OUTSIDE RECORDS SUMMARY | 2025-02-04 17:31 | XMS_ITS | Encounter Summary ---
Author Organization [facility] Address [address] [place] [address] Care Team Providers Care Latin American Studies Director Name Role Phone Scarlett Galindo Primary Care Provider Encounter Details Date Type Department Care Team (Late st Contact Info) Description 06/14/2008 Outpatient Historical [facility] [address] [place] [address] AMBULANCE, [facility] Social History Tobacco Use Types Packs/Day Years Used Date Smoking Tobacco: Never Assessed Sex and Gender Information Value Date Recorded Sex Assigned at Not on file Legal Sex Male 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
--- OUTSIDE RECORDS SUMMARY | 2025-02-04 17:31 | XMS_ITS | Clinical Summary ---
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 Gender Identity Not on file Sexual Orientation Not on file Last Filed Vital Signs Vital Sign Reading Time Taken Comments Blood Pressure 179/119 12/23/2017 8:52 PM CDT Pulse 75 12/23/2017 7:04 PM CDT Temperature 36.6 C (97.9 F) 12/23/2017 8:52 PM CDT Respiratory Rate 20 12/23/2017 8:52 PM CDT Oxygen Saturation 96% 12/23/2017 8:52 PM CDT Inhaled Oxygen Concentration - - Weight 116.1 kg (256 lb) 12/23/2017 5:37 PM CDT Height 185.4 cm (6' 1 ) 12/23/2017 5:37 PM CDT Body Mass Index 33.78 12/23/2017 5:37 PM CDT Plan of Treatment Health Maintenance Due Date Last Done Comments DTAP/TDAP/TD VACCINES (1 - Tdap) 1982 COLORECTAL SCREENING 2008 Colorectal Cancer Screening 2008 FIT-DNA Q 3 years 2008 FIT/FOBT Q 1 year 2008 Flex Sig/CT Colonography Q 5 years 2008 ZOSTER VACCINE (1 of 2) 2013 INFLUENZA VACCINE (#1) 2025 RSV VACCINE (60+ or ) (1 - 1-dose 75+ series) 2038 Care Teams Brickmason Supervisor Relationship Specialty Start Date End Date Scarlett Galindo FNP [address] [place] [id number] PCP - General NURSE PRACTITIONER 10/04/12
--- OUTSIDE RECORDS SUMMARY | 2025-02-04 17:32 | XMS_ITS | Clinical Summary ---
Author Organization [place] Address [address] [facility] [address] Attn: Epic Prelude ADT TOMAS CHAVEZ [id number] Care Team Providers Care Subway Car Repairer Name Role Phone Scarlett Galindo COILED TUBING SUPERVISOR Primary Care Provider Allergies No known active allergies Medications lisinopriL (PRINIVIL) 10 mg tablet Take 20 mg by mouth daily. 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 Gender Identity Not on file Sexual Orientation Not on file Last Filed Vital Signs Vital Sign Reading Time Taken Comments Blood Pressure 193/120 11/18/2021 1:30 PM CDT Pulse 69 11/18/2021 1:30 PM CDT Temperature 36.2 C (97.1 F) 11/18/2021 12:56 PM CDT Respiratory Rate 18 11/18/2021 1:30 PM CDT Oxygen Saturation 98% 11/18/2021 1:30 PM CDT Inhaled Oxygen Concentration - - Weight 113.6 kg (250 lb 6.4 oz) 022 12:56 PM CDT Height 185.4 cm (6' 1 ) 11/18/2021 12:5 6 PM CDT Body Mass Index 33.04 11/18/2021 12:56 PM CDT Plan of Treatment Health Maintenance Due Date Last Done Comments COLORECTAL SCREENING 2008 Colorectal Cancer Screening 2008 FIT-DNA Q 3 years 2008 FIT/FOBT Q 1 year 2008 Flex Sig/CT Colonography Q 5 years 2008 ZOSTER VACCINE (1 of 2) 2013 INFLUENZA VACCINE (#1) 2025 DTAP/TDAP/TD VACCINES (2 - Td or Tdap) 11/19/2031 RSV VACCINE (60+ or ) (1 - 1-dose 75+ series) 2038 Insurance [facility] EXCHANGE OR Care Teams Subway Car Repairer Relationship Specialty Start Date End Date Scarlett Galindo FNP [address] [place] [id number] PCP - General NURSE PRACTITIONER 10/04/12
--- NOTE | 2025-02-04 18:47 | ECG_ITS ---
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 Measurements Intervals Jansen Rate: 78 P: -79 NV: 135 QRS: -37 QRSD: 106 T: 24 QT: 426 QTc: 486 Interpretive Statements possible ectopic atrial RHYTHM WITH OCCASIONAL VENTRICULAR PREMATURE COMPLEXES LEFT AXIS DEVIATION [QRS AXIS < -30] INCOMPLETE RIGHT BUNDLE BRANCH BLOCK [90+ ms QRS DURATION, TERMINAL R IN V1/V2, 40+ ms S IN I/aVL/V4/V5/V6] MODERATE ST DEPRESSION [0.05+ mV ST DEPRESSION] Compared to ECG 07/31/2022 14:49:40 Junctional rhythm now present Ventricular premature complex(es) now present ST (T wave) deviation now present Sinus rhythm no longer present Electronically Signed On 02-05-2025 00:15:39 CDT by Ariana Lopez M.D. [email or web address]
[2025-02-04 20:26] LABS: Hematocrit 41.9 % (37-53); Hemoglobin 14.80 g/dL (11.27-16.99); Mean Corpuscular HGB Conc 35.3 g/dL (30-55); Mean Corpuscular Hemoglobin 29.2 pg (27-33); Mean Corpuscular Volume 82.8 fl (82-101); Nucleated Red Blood Cells % 0 %; Platelet Count 162 10^3/cmm (157-399); Red Blood Count 5.06 10^6/uL (3.85-5.65); White Blood Count 10.56 10^3/uL (3.29-11.43)
[2025-02-04 20:37] LABS: Ketone (Acetest) Serum Negative (Negative)
[2025-02-04 20:50] LABS: Alanine Aminotransferase 49 U/L (0-41); Albumin Level 4.2 g/dL (3.5-5.2); Alkaline Phosphatase 123 U/L (40-130); Anion Gap 17.0 (5-19); Aspartate Amino Transferase 31 U/L (0-40); Blood Urea Nitrogen 23 mg/dL (8-23); Calcium 9.4 mg/dL (8.5-10.5); Carbon Dioxide 27 mmol/L (22-29); Chloride 96 mmol/L (98-107); Creatinine Clr Calc Pharmacy 68.5120; Globulin 3.4 g/dL (1.3-4.6); Glucose 389 mg/dL (65-115); Magnesium 2.1 mg/dL (1.7-2.3); Osmolality Calculated 304 mOsm/kg (285-295); Potassium 3.0 mmol/L (3.5-5.1); Sodium 137 mmol/L (136-145); Total Protein 7.6 g/dL (6.6-8.7)
[2025-02-04 21:28] VITALS: BP 151/89; PULSE 82; O2SAT 94
--- NOTE | 2025-02-04 21:51 | W.ED.RECABL ---
HPI - Recheck/Abnormal Lab/Rx General: Chief Complaint: Recheck/Abnormal Lab/Rx Stated Complaint: Low potassium, high blood thiner Time Seen by Provider: 02/04/25 21:26 History of Present Illness: 59-year-old male with recent changes to insulin regimen based on insurance preferences seen for hyperglycemia, hypokalemia, and several bouts of syncope. Outpatient labs were drawn and clinic told him to come to the emergency department. He states that he has felt increased thirst and increased urine output at the same time. Blood sugar has not been well-controlled and as high as over 500 at home recently. He states that he has not been in DKA since he was initially diagnosed. He currently takes 40 mg of furosemide and 20 mill equivalents of potassium daily. He states that he used to take Basaglar but he was switched to something else. He thinks this change is what has caused his symptoms. He denies chest pain, shortness of breath, abdominal pain, nausea, vomiting, diarrhea, constipation, dysuria, fever, and has no other acute complaints. Related Data Previous Rx's ?Medication ?Instructions ?Recorded blood-glucose meter #1 ea 08/02/22 lancets #200 ea 08/23/22 strips #200 ea 08/23/22 flash glucose scanning reader #1 ea 09/09/22 (FreeStyle Mima 14 Day [place]) insulin lispro 100 unit/mL See Rx Instructions .Route 10/10/22 subcutaneous pen (Humalog KwikPen .COMPLEX #15 mL (U-100) Insulin) flash glucose sensor (FreeStyle #2 ea 10/16/22 Mima 14 Day Sensor kit) lancets 33 gauge (TRUEplus Lancets) #200 ea 08/21/23 Held on 12/29/24. Instructions: patient needs appoinment blood sugar diagnostic (True #200 ea 09/11/23 Metrix Glucose Test Strip) Held on 12/29/24. Instructions: patient needs appoinment aspirin 81 mg capsule 81 mg PO DAILY 90 days #90 caps 02/26/24 amlodipine 10 mg tablet 10 mg PO DAILY 90 days #90 tabs 04/05/24 atorvastatin 40 mg tablet See Rx Instructions .Route 04/05/24 .COMPLEX 90 days #90 tabs carvedilol 12.5 mg tablet 12.5 mg .Route BID 90 days #180 04/05/24 tabs furosemide 40 mg tablet See Rx Instructions .Route 04/05/24 .COMPLEX 90 days #90 tabs isosorbide mononitrate 30 mg 60 mg (2 x 30 mg) PO DAILY 90 days 04/05/24 tablet,extended release 24 hr #180 tabs losartan 50 mg tablet 100 mg (2 x 50 mg) PO DAILY 90 04/05/24 days #180 tabs potassium chloride 20 mEq See Rx Instructions .Route 04/05/24 tablet,extended release(part/cryst) .COMPLEX 90 days #90 tabs pen needle, diabetic 32 gauge x #100 ea 06/08/24 (Unifine Pentips Plus) insulin glargine 100 unit/mL (3 20 unit (0.2 mL) SUBCUT BID #15 mL 10/28/24 mL) subcutaneous pen (Lantus Solostar U-100 Insulin) Held on 12/29/24. Instructions: patient needs appoinment hydrochlorothiazide 25 mg tablet 25 mg PO DAILY 30 days #30 tabs 01/20/25 Allergies Allergy/AdvReac Type Severity Reaction Status Date / Time No Known Allergies Allergy Verified 02/04/25 17:34 [facility] PFSH: Medical History (Updated 02/03/25 @ 19:18 by LOTTIE Garg) Elevated serum creatinine Colon cancer screening CHF (congestive heart failure), NYHA class III CKD (chronic kidney disease) stage 2, GFR 60-89 ml/min Essential hypertension NSTEMI (non-ST elevated myocardial infarction) Secondary hypertension Conn's syndrome COPD (chronic obstructive pulmonary disease) BPH (benign prostatic hyperplasia) Surgical History Hx laparoscopic cholecystectomy H/O knee surgery Family History Father Family history of premature coronary artery disease age 64 due to [place] Other CAD (coronary artery disease) Social History Smoking and tobacco/nicotine status: never used tobacco/nicotine Alcohol intake: never Substance/Drug Use: never Household members: significant other Housing: House Physical Exam Const: COMMON NORMALS: no acute distress, patient oriented x3 and alert HENMT: COMMON NORMALS: normocephalic and atraumatic HEAD & SCALP: normocephalic and atraumatic Eye: COMMON NORMALS: Equal, round and reactive pupils present, EOMs intact bilaterally and no scleral icterus PUPIL: Yes Equal, round and reactive pupils present Resp: COMMON NORMALS: normal respiratory effort and No retractions Cardio: COMMON NORMALS: regular rate, regular rhythm and No murmurs present (Cardio) RATE: regular rate RHYTHM: regular rhythm GI: COMMON NORMALS: Normal to inspection, nondistended, normoactive bowel sounds present, Soft to palpation and non-tender PALPATION: Yes Soft to palpation Neuro: COMMON NORMALS: patient oriented x3 SENSORIUM/ORIENTATION: Yes alert Skin: COMMON NORMALS: no rashes or lesions noted GENERAL SKIN EXAM: no rashes or lesions noted Course Vital Signs: Vital signs: Vital Signs Temperature 98.1 F 02/04/25 17:31 Pulse Rate 72 02/05/25 05:35 Respiratory Rate 16 02/04/25 17:31 Blood Pressure 126/91 02/05/25 05:35 Pulse Oximetry 96 02/05/25 05:35 Oxygen Delivery Me thod Room Air 02/05/25 05:35 MDM - Recheck/Abnormal Lab/Rx Medical Decision Making In summary, patient is a 59-year-old male with recent medication changes which he feels is causing him to have hypoglycemia. Due to this, he is having increased thirst and urine output and I suspect some mild dehydration as he has had multiple syncopal episodes over the last few days. Aggressive IV fluid and insulin has dropped his blood sugar from 500-150 in the emergency department. Potassium was repleted. Given his syncopal episodes, he will be admitted to the hospital service in improved condition. Lab Data 02/04/25 20:18 02/04/25 20:18 Laboratory Results WBC 10.56 10^3/uL (3.29-11.43) 02/04/25 20:18 RBC 5.06 10^6/uL (3.85-5.65) 02/04/25 20:18 Hgb 14.80 g/dL (11.27-16.99) 02/04/25 20:18 Hct 41.9 % (37-53) 02/04/25 20:18 MCV 82.8 fl (82-101) 02/04/25 20:18 MCH 29.2 pg (27-33) 02/04/25 20:18 MCHC 35.3 g/dL (30-55) 02/04/25 20:18 RDW 12.7 % (12.1-15.1) 02/04/25 20:18 Plt Count 162 10^3/cmm (157-399) 02/04/25 20:18 MPV 11.8 fL (7.4-10.4) H 02/04/25 20:18 Neut % (Auto) 59.8 % 02/04/25 20:18 Lymph % (Auto) 27.2 % 02/04/25 20:18 [place] % (Auto) 8.1 % 02/04/25 20:18 Eos % (Auto) 3.7 % 02/04/25 20:18 Baso % (Auto) 0.8 % 02/04/25 20:18 Neut # (Auto) 6.32 10^3/uL (1.8-7.7) 02/04/25 20:18 Lymph # (Auto) 2.9 10^3/uL (0.8-4.8) 02/04/25 20:18 [place] # (Auto) 0.9 10^3/uL (0.2-0.9) 02/04/25 20:18 Eos # (Auto) 0.4 10^3/uL (0.0-0.8) 02/04/25 20:18 Baso # (Auto) 0.1 10^3/uL (0.0-0.1) 02/04/25 20:18 Nucleated RBC % (auto) 0 % 02/04/25 20:18 Nucleated RBCs # 0.0 /100WBC 02/04/25 20:18 Sodium 137 mmol/L (136-145) 02/04/25 20:18 Potassium 3.0 mmol/L (3.5-5.1) L 02/04/25 20:18 Chloride 96 mmol/L (98-107) L 02/04/25 20:18 Carbon Dioxide 27 mmol/L (22-29) 02/04/25 20:18 Anion Gap 17.0 (5-19) 02/04/25 20:18 BUN 23 mg/dL (8-23) 02/04/25 20:18 Creatinine 1.5 mg/dL (0.7-1.2) H 02/04/25 20:18 GFR Calculation 47.6 mL/min (90-130) L 02/04/25 20:18 Glucose 389 mg/dL (65-115) H 02/04/25 20:18 POC Glucose 180 mg/dL (70-110) H 02/05/25 02:32 Calculated Osmolality 304 mOsm/kg (285-295) H 02/04/25 20:18 Calcium 9.4 mg/dL (8.5-10.5) 02/04/25 20:18 Magnesium 2.1 mg/dL (1.7-2.3) 02/04/25 20:18 Total Bilirubin 0.6 mg/dL (0.15-1.2) 02/04/25 20:18 AST 31 U/L (0-40) 02/04/25 20:18 ALT 49 U/L (0-41) H 02/04/25 20:18 Alkaline Phosphatase 123 U/L (40-130) 02/04/25 20:18 Total Protein 7.6 g/dL (6.6-8.7) 02/04/25 20:18 Albumin 4.2 g/dL (3.5-5.2) 02/04/25 20:18 Globulin 3.4 g/dL (1.3-4.6) 02/04/25 20:18 Serum Ketones Negative (Negative) 02/04/25 20:18 All radiology interpretation(s) finalized by discharge EKG Data EKG 1: Interpretation: Time?2119?sinus rhythm with infrequent PVCs, rate of 78, no ST segment elevation or depression, no T wave versions, QTc = 459 Discharge Plan Discharge Condition: Stable Prescriptions: No Action aspirin 81 mg capsule 81 mg PO DAILY 90 Days Qty: 90 1RF hydrochlorothiazide 25 mg tablet 25 mg PO DAILY 30 Days Qty: 30 0RF (DME) lancets See Rx Instructions .Route .MEDSUPPLY Qty: 200 6RF Rx Instructions: check BS 6 times a day (DME) strips See Rx Instructions .Route .MEDSUPPLY Qty: 200 6RF Rx Instructions: check BS 6 times a day (DME) FreeStyle Mima 14 Day [place] Misc See Rx Instructions .Route Qty: 1 0RF Rx Instructions: As directed insulin lispro [Humalog KwikPen Insulin] 100 unit/mL insulin pen See Rx Instructions .ROUTE .COMPLEX Qty: 15 1RF Dose Instruction: INJECT SUBCUTANEOUSLY THREE TIMES DAILY, AFTER MEALS BASED ON SLIDING SCALE PROVIDED, MAX DAILY DOSE: 30 UNITS Rx Instructions: INJECT SUBCUTANEOUSLY THREE TIMES DAILY, AFTER MEALS BASED ON SLIDING SCALE PROVIDED, MAX DAILY DOSE: 30 UNITS (DME) FreeStyle Mima 14 Day Sensor Kit See Rx Instructions .Route Qty: 2 6RF Rx Instructions: As directed (DME) lancets [TRUEplus Lancets] 33 gauge misc See Rx Instructions .Route Qty: 200 1RF Rx Instructions: up to 6times (DME) True Metrix Glucose Test Strip Strip See Rx Instructions .ROUTE .COMPLEX Qty: 200 10RF Dose Instruction: USE TO CHECK BLOOD SUGAR UP TO 6 TIMES DAILY Rx Instructions: USE TO CHECK BLOOD SUGAR UP TO 6 TIMES DAILY amlodipine 10 mg tablet 10 mg PO DAILY 90 Days Qty: 90 1RF atorvastatin 40 mg tablet See Rx Instructions .ROUTE .COMPLEX 90 Days Qty: 90 1RF Dose Instruction: TAKE 1 TABLET BY MOUTH DAILY; MUST have follow-up FOR further refills] Rx Instructions: TAKE 1 TABLET BY MOUTH DAILY; MUST have follow-up FOR further refills] carvedilol 12.5 mg tablet 12.5 mg .ROUTE BID 90 Days Qty: 180 1RF Rx Instructions: 12.5 mg twice a day; furosemide 40 mg tablet See Rx Instructions .ROUTE .COMPLEX 90 Days Qty: 90 1RF Dose Instruction: TAKE 1 TABLET BY MOUTH DAILY Rx Instructions: TAKE 1 TABLET BY MOUTH DAILY isosorbide mononitrate 30 mg tablet extended release 24 hr 60 mg PO DAILY 90 Days Qty: 180 1RF losartan 50 mg tablet 100 mg PO DAILY 90 Days Qty: 180 1RF potassium chloride 20 mEq tablet,ER particles/crystals See Rx Instructions .ROUTE .COMPLEX 90 Days Qty: 90 1RF Dose Instruction: TAKE 1 TABLET BY MOUTH DAILY Rx Instructions: TAKE 1 TABLET BY MOUTH DAILY (DME) pen needle, diabetic [Unifine Pentips Plus] 32 gauge x 5/32 needle See Rx Instructions .ROUTE .COMPLEX Qty: 100 5RF Dose Instruction: USE DIRECTED TO CHECK BLOOD GLUCOSE Rx Instructions: USE DIRECTED TO CHECK BLOOD GLUCOSE insulin glargine [Lantus Solostar U-100 Insulin] 100 unit/mL (3 mL) insulin pen 20 unit SUBCUT BID Qty: 15 3RF (DME) blood-glucose meter Misc See Rx Instructions .Route Qty: 1 0RF Rx Instructions: As directed Referrals: ELEANOR Burnett, FOIL STAMP OPERATOR [Primary Care Provider, Family Practice] Print Language: Lithuanian Coding Level of Care Code ED 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
[2025-02-04] MEDS: insulin regular-human 100 units/1 mL 17 UNIT IVP (22:24)
--- NOTE | 2025-02-04 22:31 | PC.NURSE ---
SPOKE WITH DR. LUCIA ABOUT CONCERNS OF POTASSIUM LEVELS BEING 3.0 BEFORE INSULIN ADMIN
[2025-02-04 22:35] VITALS: BP 159/94; PULSE 75; O2SAT 97
[2025-02-05] VITALS (12 sets, daily range): BP systolic 126–165; BP diastolic 62–97; PULSE 57–83; RESP 18–26; TEMP 36.7–36.9; O2SAT 91–97; BMI 33.2
--- NOTE | 2025-02-05 06:53 | P.HP_ITS ---
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 He reports increased thirst and likely polyuria. Home insulin regimen is 18?20 units twice daily; no short-acting insulin is used. Diet is inconsistent and exercise is limited. Review of systems otherwise negative for rash, urinary or gastrointestinal bleeding. He lives with his girlfriend and makes his own decisions. Denies alcohol or illicit drug use but smokes <1 pack/day. ED vitals: BP 126/91 mmHg, HR 72 bpm, T 98.1 ?F, SpO? 96 % RA. Labs: Na 137, K 3.0, Cl 96, HCO? 27, anion gap 17, BUN 23, Cr 1.5, Mg 2.1, glucose down to 389 after 17 U regular insulin; CBC unremarkable; ALT mildly elevated at 49; serum ketones negative. ECG shows right bundle branch block. Prior cardiac work-up: 2022 echo?mild-moderate concentric LVH, EF 68 %; Jul 2023 stress test unremarkable; Jul 2022 head/neck CTA without significant stenosis. Review of Systems 2 Const: Denies: fever(s), chills, body aches or malaise ENMT: Denies: throat pain Card: Reports: syncope; Denies: chest pain, edema, pre-syncope or dyspnea on exertion Resp: Denies: dyspnea, productive cough, change in phlegm color or hemoptysis GI: Denies: abdominal pain, nausea, vomiting, diarrhea, constipation, hematochezia or melena : Denies: flank pain, difficulty urinating, urinary frequency or hematuria Musc: Denies: back pain, joint swelling or joint redness Skin/Breast: Denies: rash or new lesions Neuro: Denies: headache(s) or confusion Endo: Reports: polyuria and polydipsia Medications/Allergies Home Medications ?Medication ?Instructions ?Recorded ?Confirmed ?Last Taken ?Type blood-glucose meter #1 ea 08/02/22 02/03/25 Unkn own Rx lancets #200 ea 08/23/22 02/03/25 Un known Rx strips #200 ea 08/23/22 02/03/25 Un known Rx flash glucose scanning reader #1 ea 09/09/22 02/03/25 Unknown Rx (FreeStyle Mima 14 Day [place]) insulin lispro 100 unit/mL See Rx Instructions .Route 10/10/22 02/03/25 Unknown Rx subcutaneous pen (Humalog KwikPen .COMPLEX #15 mL (U-100) Insulin) flash glucose sensor (FreeStyle #2 ea 10/16/22 5 Unknown Rx Mima 14 Day Sensor kit) lancets 33 gauge (TRUEplus Lancets) #200 ea 08/21/23 0 02/03/25 Unknown Rx Held on 12/29/24. Instructions: patient needs appoinment blood sugar diagnostic (True #200 ea 09/11/23 02/03/25 Unknown Rx Metrix Glucose Test Strip) Held on 12/29/24. Instructions: patient needs appoinment aspirin 81 mg capsule 81 mg PO DAILY 90 days #90 c aps 02/26/24 02/03/25 Unknown Rx amlodipine 10 mg tablet 10 mg PO DAILY 90 days #90 t abs 04/05/24 02/03/25 Unknown Rx atorvastatin 40 mg tablet See Rx Instructions .Route 0 04/05/24 02/03/25 Unknown Rx .COMPLEX 90 days #90 tabs carvedilol 12.5 mg tablet 12.5 mg .Route BID 90 days # 180 04/05/24 02/03/25 Unknown Rx tabs furosemide 40 mg tablet See Rx Instructions .Route 0 04/05/24 02/03/25 Unknown Rx .COMPLEX 90 days #90 tabs isosorbide mononitrate 30 mg 60 mg (2 x 30 mg) PO ARBEN Y 90 days 04/05/24 02/03/25 Unknown Rx tablet,extended release 24 hr #180 tabs losartan 50 mg tablet 100 mg (2 x 50 mg) PO DAILY 90 04/05/24 02/03/25 Unknown Rx days #180 tabs potassium chloride 20 mEq See Rx Instructions .Route 0 04/05/24 02/03/25 Unknown Rx tablet,extended release(part/cryst) .COMPLEX 90 days # 90 tabs pen needle, diabetic 32 gauge x #100 ea 06/08/2402/03 Unknown Rx 5/32 (Unifine Pentips Plus) insulin glargine 100 unit/mL (3 20 unit (0.2 mL) SUBCU T BID #15 mL 10/28/24 02/03/25 Unknown Rx mL) subcutaneous pen (Lantus Solostar U-100 Insulin) Held on 12/29/24. Instructions: patient needs appoinment hydrochlorothiazide 25 mg tablet 25 mg PO DAILY 30 day s #30 tabs 01/20/25 02/03/25 Unknown Rx Allergies Allergy/AdvReac Type Severity Reaction Status Date / Time No Known Allergies Allergy Verified 02/04/25 17:34 PFSH Acute 2 PFSH: Medical History (Updated 02/05/25 @ 07:00 by Felix James MD) Elevated serum creatinine Colon cancer screening CHF (congestive heart failure), NYHA class III CKD (chronic kidney disease) stage 2, GFR 60-89 ml/min Essential hypertension NSTEMI (non-ST elevated myocardial infarction) Secondary hypertension Conn's syndrome COPD (chronic obstructive pulmonary disease) BPH (benign prostatic hyperplasia) Surgical History Hx laparoscopic cholecystectomy H/O knee surgery Family History Father Family history of premature coronary artery disease age 64 due to [place] Other CAD (coronary artery disease) Social History Smoking and tobacco/nicotine status: never used tobacco/nicotine Alcohol intake: never Substance/Drug Use: never Household members: significant other Housing: House Vitals/I&O/Wt Last Vital Signs Temp 98.1 F 02/04/25 17:31 Pulse 72 02/05/25 05:35 Resp 16 02/04/25 17:31 BP 126/91 02/05/25 05:35 Pulse Ox 96 02/05/25 05:35 O2 Del Method Room Air 02/05/25 05:35 02/04/25 02/04/25 02/05/25 14:59 22:59 06:59 Intake Total 0 / 0 1000 / 1000 Balance 0 / 0 1000 / 1000 Weight last 48 hrs Weight 114.305 kg Physical Exam 2 Const: COMMON NORMALS: patient oriented x3 and alert GENERAL APPEARANCE: c ooperative ORIENTATION/CONSCIOUSNESS: Yes awake HENMT: COMMON NORMALS: oropharynx normal Neck/C-Spine: COMMON NORMALS: no JVD Resp: COMMON NORMALS: normal respiratory effort and clear to auscultation bilaterally AUSCULTATION: clear to auscultation bilaterally Cardio: COMMON NORMALS: no JVD, regular rhythm, S1 normal heart sound present, S2 normal heart sound present and No murmurs present (Cardio) RHYTHM: regular rhythm HEART SOUNDS: S1 normal heart sound present and S2 normal heart sound present GI: COMMON NORMALS: Normal to inspection, nondistended, normoactive bowel sounds present, Soft to palpation and non-tender PALPATION: Yes Soft to palpation Extremity: COMMON NORMALS: no joint enlargement and no pedal edema Neuro: COMMON NORMALS: patient oriented x3 and moves all extremities S ENSORIUM/ORIENTATION: Yes alert Skin: COMMON NORMALS: no rashes or lesions noted GENERAL SKIN EXAM: no rashes or lesions noted Data 02/04/25 20:18 02/04/25 20:18 A&P Assessment and plan 1. Syncope: Single witnessed syncopal event while standing, no prodrome or neurological deficit. Differential includes arrhythmia, orthostatic hypotension/dehydration from hyperglycemia osmotic diuresis, carotid disease, structural heart disease. Reviewed vitals, CBC, CMP, EKG, prior echocardiogram, prior stress test from 2022, prior CTA head and neck from 2022. Reviewed ED provider note, discussed with ED provider. - Order transthoracic echocardiogram - Order carotid duplex ultrasound - Place on continuous telemetry monitoring for any arrhythmia. Consider monitor at discharge. - Obtain orthostatic blood pressures - Administer IV fluids for suspected dehydration, and optimize control of severe hyperglycemia, uncontrolled diabetes. Monitor for risk of fluid overload with underlying congestive heart failure. 2. Uncontrolled type 2 diabetes mellitus with hyperglycemia: Uncontrolled diabetes mellitus with severe hyperglycemia : Blood glucose peaked at 517 mg/dL despite home insulin; likely worsened by dietary indiscretion and possible recent switch in insulin brand. Anion gap mildly elevated but serum ketones negative, suggesting hyperosmolar hyperglycemia without ketoacidosis. A1c reviewed, noted worsened up to 8.8 earlier this month - Continue inpatient long-acting insulin 20 units twice daily with sliding scale insulin. Consider adjusting Lantus insulin based on requirements in the hospital. Consider adding short acting insulin for home use as well. Consistent carbohydrate diet. - Monitor capillary blood glucose closely - Dietary counseling on consistent carbohydrates; encourage weight loss and exercise - Review outpatient insulin regimen and adjust prior to discharge Plan: Congestive heart failure NYHA class III : Stable chronic CHF; prior echo with preserved EF but concentric LVH. No current chest pain or dyspnea reported. - Monitor fluid balance during IV hydration - Review home heart-failure medications (not listed) and continue as appropriate - Repeat echocardiogram (already ordered for syncope evaluation) Chronic kidney disease : Baseline creatinine 1.5 mg/dL with stable BUN 23; at risk for worsening with hyperglycemia and contrast if imaging required. - Trend renal function daily - Avoid nephrotoxic agents Hypertension : Known HTN, current BP 126/91 in ED. - Monitor blood pressure on the floor - Resume/adjust home antihypertensive regimen once clarified Chronic obstructive pulmonary disease : Stable COPD; oxygen saturation 96 % on room air; no current respiratory complaints. - Continue baseline inhalers if on any (not specified) - Smoking cessation counseling (see Nicotine dependence) Nicotine dependence : Smokes <1 pack/day, has attempted cessation but struggles. Discussed for 3-1/2 minutes. - Counseled on cardiovascular, pulmonary, and oncologic risks - Offer pharmacologic aids (e.g., nicotine replacement) as needed and referral to cessation program Requesting to confirm home medications, please review and reconcile once available. PDMP PDMP Reviewed: Not Reviewed Attestations 2 Medical Necessity Statement*: Place in observation for additional assessment management of syncopal and presyncopal episodes, uncontrolled type 2 diabetes with hyperglycemia, additional comorbidities as above including CKD, CHF. and High MDM includes amount and/or complexity of data reviewed/ordered [ previous or external records, resulted lab(s)/test(s), ordered lab(s)/test(s) and other healthcare professional discussion] and described risk of complication, morbidity or mortality of management as documented Diagnoses Syncope R55 Uncontrolled type 2 diabetes mellitus with hyperglycemia E11.65 Glycemic state: with hyperglycemia
--- NOTE | 2025-02-05 06:57 | USR_ITS ---
PROCEDURE INFORMATION: Exam: US Duplex Bilateral Extracranial Arteries; Complete; Carotid Arteries Exam date and time: 02/05/2025 5:50 PM Age: 59 years old Clinical indication: Syncope and collapse TECHNIQUE: Imaging protocol: Real-time duplex ultrasound scan of the bilateral extracranial arteries combining metz scale, color Doppler and spectral waveform analysis with image documentation. Complete exam. Exam focused on the carotid arteries. COMPARISON: CT angio headneck* [id number] 07/31/2022 9:18 PM FINDINGS: Right common carotid artery: Unremarkable. No occlusion or stenosis. Waveforms are normal. Right internal carotid artery: Unremarkable. No occlusion or stenosis. Waveforms are normal. Right ICA/CCA ratio: Within normal limits. Right external carotid artery: No stenosis in the origin. Right vertebral artery: Unremarkable. Antegrade flow. Left common carotid artery: Unremarkable. No occlusion or stenosis. Waveforms are normal. Left internal carotid artery: Unremarkable. No occlusion or stenosis. Waveforms are normal. Left ICA/CCA ratio: Within normal limits. Left external carotid artery: No stenosis in the origin. Left vertebral artery: Unremarkable. Antegrade flow. US/CV carotid duplex BI* [id number] IMPRESSION: No internal carotid arterial stenosis. REFERENCES: SRU CRITERIA. The degree of internal carotid artery stenosis is based on criteria defined by the Society of Radiologists in Ultrasound (SRU). Normal is no stenosis. Mild is less than 50% stenosis. Moderate is 50-69% stenosis. Severe is greater than 69% stenosis to near occlusion. Near occlusion is a markedly narrowed lumen. Total occlusion is no detectable patent lumen. Reference: Marcial Beaver, et al. Carotid Artery Stenosis: Metz-Scale and Doppler US Diagnosis-Society of Radiologists in Ultrasound Consensus Conference. Radiology 2003; 229:340-346.
--- NOTE | 2025-02-05 06:57 | USCV_ITS ---
Leo Arredondo Age: 59 Gender: M : 1965 Exam Date: 02/05/2025 17:17 Ordering Phys: Felix James MD Technologist: Edwar Martinez [place] [facility] [place]: syncope BP: 165 / 96 HR: 78 Rhythm: Sinus Technical Quality: Adequate MEASUREMENTS (Male / Female) Normal Values 2D ECHO LV Diastolic Diameter PLAX 4.1 cm 4.2 - 5.9 / 3.9 - 5.3 cm IVS Diastolic Thickness 1.2 cm 0.6 - 1.0 / 0.6 - 0.9 cm IVS Systolic Thickness 2.0 cm LVPW Diastolic Thickness 2.1 cm 0.6 - 1.0 / 0.6 - 0.9 cm LVPW Systolic Thickness 2.1 cm LVOT Diameter 2.0 cm LV Ejection Fraction 2D Teich 73.5 % LV Ejection Fraction MOD 4C 75.7 % LV Ejection Fraction MOD 2C 55.1 % LV Ejection Fraction 2C AL 60.5 % LA Diameter 3.5 cm RA Systolic Volume 4C AL 33.9 ml RA Systolic Volume 4C MOD 35.3 ml LA Sys Volume AL 45.4 cm cubed LA Sys Volume Index AL 18.4 cm cubed/m squared Aorta at Sinotubular Diameter 2.4 cm IVC Diameter 1.7 cm M-MODE LA Ao Ratio MM 1.5 AV Cusp Separation MM 2.2 cm DOPPLER AV Peak Velocity 200.0 cm/s LVOT Peak Velocity 252.0 cm/s AV Area Cont Eq vti 4.6 cm squared AV Area Cont Eq pk 4.0 cm squared MV Peak Velocity 125.0 cm/s MV Area PHT 3.0 cm squared Mitral E to A Ratio 1.1 TV Peak Velocity 377.5 cm/s TR Peak Velocity 388.0 cm/s TR Peak Gradient 60.2 mmHg TR Mean Velocity 336.0 cm/s TR Mean Gradient 45.9 mmHg TR Velocity Time Integral 86.7 cm PV Peak Velocity 119.0 cm/s RV Ejection Time 0.3 s FINDINGS Left Ventricle Normal left ventricular size and systolic function, EF 61%.no regional wall motion abnormalities. Moderate left ventricular hypertrophy. Grade III/IV diastolic dysfunction (restrictive filling pattern), severely elevated filling pressures. Right Ventricle The right ventricle is normal in size and function. Right Atrium The right atrium is normal in size. Left Atrium Left atrium appears to be upper limit of normal size Mitral Valve Trace mitral valve regurgitation. Aortic Valve Aortic valve sclerosis. The resting LVOT velocity was 3.8 m/s with a no significant change with Valsalva. The resting peak gradient across the LV outflow tract was 58 mmHg with a mean gradient of 36 mmHg Tricuspid Valve Trace to mild tricuspid regurgitation with estimated pulmonary artery peak systolic pressure of 49 mmHg Pulmonic Valve Structurally normal pulmonic valve without significant stenosis. There is no pulmonic regurgitation. Pericardium Normal pericardium without effusion. Aorta Normal aortic annulus size. IVC Normal inferior vena cava. CONCLUSIONS Normal left ventricular size and systolic function, EF 61%. No regional wall motion abnormalities. Moderate left ventricular hypertrophy. Grade III/IV diastolic dysfunction (restrictive filling pattern), severely elevated filling pressures. Features of hypertrophic obstructive cardiomyopathy with a resting LV outflow tract velocity of 3.8 m/s with a resting peak gradient of 58 mmHg and a mean gradient of 36 mmHg Trace to mild tricuspid regurgitation . Estimated pulmonary artery peak systolic pressure of 49 mmHg. There is no pericardial effusion. There are no intracardiac masses. Compared to the study from 07/31/2022, there is significant increase in the LV outflow tract gradient Dr Ariana Lopez MD FACC (Electronically Signed) Final Date: 05 February 2025 22:10 S
[2025-02-05] MEDS: insulin glargine 100 units/1 mL 20 UNIT SUBCUT ×2 (11:03→21:20)
--- NOTE | 2025-02-05 12:40 | ECG_ITS ---
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: : 1965 Requested By: Reji Lee Order Number: [id number] Reading MD: EARNEST MEJIA Measurements Intervals [place] Rate: 77 P: -76 NM: 146 QRS: -47 QRSD: 92 T: 49 QT: 397 QTc: 451 Interpretive Statements ECTOPIC ATRIAL RHYTHM INCOMPLETE RIGHT BUNDLE BRANCH BLOCK [90+ ms QRS DURATION, TERMINAL R IN V1/V2, 40+ ms S IN I/aVL/V4/V5/V6] POSSIBLE ANTERIOR MYOCARDIAL INFARCTION , PROBABLY OLD [30 ms Q WAVE IN V3/V4, OR R < 0.2 mV IN V4] INFERIOR MYOCARDIAL INFARCTION , PROBABLY OLD [40+ ms Q WAVE AND/OR ST/T ABNORMALITY IN II/aVF] Compared to ECG 02/04/2025 21:20:10 Myocardial infarct finding now present Left-axis deviation no longer present ST (T wave) deviation no longer present Electronically Signed On 02-05-2025 16:09:34 CDT by EARNEST MEJIA [id number]
[2025-02-05 13:23] LABS: Hematocrit 41.1 % (37-53); Hemoglobin 14.20 g/dL (11.27-16.99); Mean Corpuscular HGB Conc 34.5 g/dL (30-55); Mean Corpuscular Hemoglobin 28.9 pg (27-33); Mean Corpuscular Volume 83.7 fl (82-101); Nucleated Red Blood Cells % 0 %; Platelet Count 162 10^3/cmm (157-399); Red Blood Count 4.91 10^6/uL (3.85-5.65); White Blood Count 9.49 10^3/uL (3.29-11.43)
[2025-02-05 13:55] LABS: Troponin(5th) Baseline 19 ng/L (0-15)
[2025-02-05 13:58] LABS: Alanine Aminotransferase 50 U/L (0-41); Albumin Level 3.9 g/dL (3.5-5.2); Alkaline Phosphatase 113 U/L (40-130); Anion Gap 15.1 (5-19); Aspartate Amino Transferase 39 U/L (0-40); Blood Urea Nitrogen 14 mg/dL (8-23); Calcium 8.6 mg/dL (8.5-10.5); Carbon Dioxide 28 mmol/L (22-29); Chloride 102 mmol/L (98-107); Creatinine Clr Calc Pharmacy 102.7680; Globulin 2.8 g/dL (1.3-4.6); Glucose 200 mg/dL (65-115); Osmolality Calculated 300 mOsm/kg (285-295); Potassium 3.1 mmol/L (3.5-5.1); Sodium 142 mmol/L (136-145); Total Protein 6.7 g/dL (6.6-8.7)
[2025-02-05 14:05] LABS: Procalcitonin 0.11 ng/mL (0-0.5)
--- NOTE | 2025-02-05 14:40 | ECG_ITS ---
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: : 1965 Requested By: Reji Lee Order Number: [id number] Reading MD: EARNEST MEJIA Measurements Intervals [place] Rate: 80 P: -30 GA: 139 QRS: -30 QRSD: 109 T: 70 QT: 404 QTc: 467 Interpretive Statements SINUS RHYTHM INCOMPLETE RIGHT BUNDLE BRANCH BLOCK [90+ ms QRS DURATION, TERMINAL R IN V1/V2, 40+ ms S IN I/aVL/V4/V5/V6] INFERIOR MYOCARDIAL INFARCTION , PROBABLY OLD [40+ ms Q WAVE AND/OR ST/T ABNORMALITY IN II/aVF] Compared to ECG 02/05/2025 13:38:05 Ectopic atrial rhythm no longer present Myocardial infarct finding still present Electronically Signed On 02-05-2025 16:09:44 CDT by EARNEST MEJIA [email or web address] [id number]
--- NOTE | 2025-02-05 14:41 | P.PN_ITS ---
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305 kg Physical Exam 2 Const: COMMON NORMALS: no acute distress and patient oriented x3 Resp: COMMON NORMALS: normal respiratory effort, No retractions, No use of accessory muscles and clear to auscultation bilaterally AUSCULTATION: clear to auscultation bilaterally Cardio: COMMON NORMALS: regular rate, regular rhythm, S1 normal heart sound present and S2 normal heart sound present RATE: regular rate RHYTHM: r egular rhythm HEART SOUNDS: S1 normal heart sound present and S2 normal heart sound present GI: COMMON NORMALS: Normal to inspection, nondistended, normoactive bowel sounds present and non-tender Extremity: COMMON NORMALS: no pedal edema Neuro: COMMON NORMALS: patient oriented x3, CN's II-XII intact bilaterally and moves all extremities Psych: COMMON NORMALS: mental status grossly normal Data 02/05/25 13:08 02/05/25 13:08 A&P Assessment and plan 1. Syncope: Syncopal episode -Cardiac stress test in 2022 MPRESSIONS 1. Unremarkable Myocardial perfusion imaging 2. Normal LV ejection fraction 71% 3. LV wall motion analysis revealing no gross wall motion abnormalities. 4. Normal LV volume Low probability for coronary ischemia, based on the above findings - CT angiogram of the head and neck in 2022 showed no large vessel occlusion Plan -Telemetry monitoring - Serial EKGs, serial troponins, telemetry monitoring - Cardiac echo - Carotid artery ultrasound - Orthostatic vitals - Aspirin, statin, Coreg 2. Uncontrolled type 2 diabetes mellitus with hyperglycemia: suggesting hyperosmolar hyperglycemia without ketoacidosis. - Continue inpatient long-acting insulin 20 units twice daily with sliding scale insulin - Monitor capillary blood glucose closely - Dietary counseling on consistent carbohydrates; encourage weight loss and exercise - Review outpatient insulin regimen and adjust prior to discharge Plan: Congestive heart failure NYHA class III : No chest pain or shortness of breath Chronic kidney disease : Baseline creatinine 1.5 mg/dL with stable BUN 23 Hypertension : Resume home blood pressure medications Chronic obstructive pulmonary disease not in exacerbation Nicotine dependence : Smoking cessation PDMP PDMP Reviewed: Not Reviewed Attestations 2 Medical Necessity Statement*: Patient requires hospitalization for syncopal episode Diagnoses Syncope R55 Uncontrolled type 2 diabetes mellitus with hyperglycemia E11.65 Glycemic state: with hyperglycemia
--- OUTSIDE RECORDS SUMMARY | 2025-02-05 14:58 | XMS_ITS | Encounter Summary ---
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 Gender Identity Not on file Sexual Orientation Not on file documented as of this encounter Plan of Treatment Not on file documented as of this encounter Procedures Procedure Name Priority Date/Time Associated Diagnosis Comments MRI KNEE WO CONTRAST LEFT Routine 06/15/2008 1:03 PM FIRE MANAGEMENT TECHNICIAN documented in this encounter Results * MRI KNEE WO CONTRAST LEFT (06/15/2008 1:03 PM FIRE MANAGEMENT TECHNICIAN) Anatomical Region Laterality Modality Lower Extremity Other 06/15/2008 1:03 PM FIRE MANAGEMENT TECHNICIAN Narrative 06/15/2008 3:37 PM FIRE MANAGEMENT TECHNICIAN Exam: MRI - Knee Lt w/o Date/Time [...] on this examination secondary to the large [id number] to include the distal aspect of the [...] medialis identified anteriorly. - Dictated By: Ratna Saravia M.D. Electronically [...] on this examination secondary to the large [id number] to include the distal aspect of thequadriceps [...] on filedocumented in this encounter Care Teams Restaurant Operations Manager Relationship Specialty Start Date End Date Scarlett Galindo FNP [address] [place] [id number] PCP - General NURSE PRACTITIONER 10/04/12 documented as of this encounter
--- OUTSIDE RECORDS SUMMARY | 2025-02-05 14:58 | XMS_ITS | Clinical Summary ---
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
--- OUTSIDE RECORDS SUMMARY | 2025-02-05 14:58 | XMS_ITS | Clinical Summary ---
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
--- OUTSIDE RECORDS SUMMARY | 2025-02-05 14:58 | XMS_ITS | Encounter Summary ---
Author Organization [facility] Address [address] [place] [address] Care Team Providers Care Business Professor Name Role Phone Scarlett Galindo Primary Care Provider Encounter Details Date Type Department Care Team (Latest Contact Info) Description 06/20/2008 Outpatient [facility] [address] [place] [address] [address] Isaak Garcia MD [address] [place] [address] Unspecified Arthropathy, Site Unspecified; Tobacco Use Disorder; Accidental Fall on or from Other Stairs or Steps; Unspecified Place of Occurrence Social History Tobacco Use Types Packs/Day Years Used Date Smoking Tobacco: Never Assessed Sex and Gender Information Value Date Recorded Sex Assigned at Not on file 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
--- OUTSIDE RECORDS SUMMARY | 2025-02-05 14:58 | XMS_ITS | Encounter Summary ---
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
[2025-02-05 15:52] LABS: Troponin 5 2HR 17.23 ng/L (0-15)
[2025-02-05 15:53] LABS: Troponin 5 2HR Delta -1.77 ABS# (0-10)
[2025-02-05 19:43] LABS: Troponin 5 6HR 18.42 ng/L (0-15)
[2025-02-05 19:48] LABS: Troponin 5 6HR Delta -0.58 ng/L (0-12)
[2025-02-06] VITALS (7 sets, daily range): BP systolic 126–168; BP diastolic 71–105; PULSE 65–84; RESP 11–24; TEMP 36.5–36.8; O2SAT 93–97
[2025-02-06 03:03] LABS: Hematocrit 40.8 % (37-53); Hemoglobin 14.20 g/dL (11.27-16.99); Mean Corpuscular HGB Conc 34.8 g/dL (30-55); Mean Corpuscular Hemoglobin 29.3 pg (27-33); Mean Corpuscular Volume 84.1 fl (82-101); Nucleated Red Blood Cells % 0 %; Platelet Count 155 10^3/cmm (157-399); Red Blood Count 4.85 10^6/uL (3.85-5.65); White Blood Count 7.61 10^3/uL (3.29-11.43)
[2025-02-06 03:28] LABS: Alanine Aminotransferase 46 U/L (0-41); Albumin Level 3.6 g/dL (3.5-5.2); Alkaline Phosphatase 111 U/L (40-130); Anion Gap 16.9 (5-19); Aspartate Amino Transferase 31 U/L (0-40); Blood Urea Nitrogen 13 mg/dL (8-23); Calcium 8.6 mg/dL (8.5-10.5); Carbon Dioxide 25 mmol/L (22-29); Chloride 103 mmol/L (98-107); Creatinine Clr Calc Pharmacy 93.4255; Globulin 3.1 g/dL (1.3-4.6); Glucose 230 mg/dL (65-115); Osmolality Calculated 301 mOsm/kg (285-295); Sodium 142 mmol/L (136-145); Total Protein 6.7 g/dL (6.6-8.7)
[2025-02-06 03:37] LABS: Potassium 2.9 mmol/L (3.5-5.1)
[2025-02-06] MEDS: insulin glargine 100 units/1 mL 20 UNIT SUBCUT ×2 (08:28→21:14)
--- OUTSIDE RECORDS SUMMARY | 2025-02-06 09:03 | XMS_ITS | Encounter Summary ---
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 Gender Identity Not on file Sexual Orientation Not on file documented as of this encounter Plan of Treatment Not on file documented as of this encounter Procedures Procedure Name Priority Date/Time Associated Diagnosis Comments MRI KNEE WO CONTRAST LEFT Routine 06/15/2008 1:03 PM RESIDENT MEDICAL OFFICER documented in this encounter Results * MRI KNEE WO CONTRAST LEFT (06/15/2008 1:03 PM RESIDENT MEDICAL OFFICER) Anatomical Region Laterality Modality Lower Extremity Other 06/15/2008 1:03 PM RESIDENT MEDICAL OFFICER Narrative 06/15/2008 3:37 PM RESIDENT MEDICAL OFFICER Exam: MRI - Knee Lt w/o Date/Time [...] on this examination secondary to the large [id number]-[id number] to include the distal aspect of the [...] on this examination secondary to the large mbkuu-gd-heew to include the distal aspect of thequadriceps [...] on filedocumented in this encounter Care Teams Mail Carrier Relationship Specialty Start Date End Date Scarlett Galindo FNP [address] [place] [id number] PCP - General NURSE PRACTITIONER 10/04/12 documented as of this encounter
--- OUTSIDE RECORDS SUMMARY | 2025-02-06 09:03 | XMS_ITS | Clinical Summary ---
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
--- OUTSIDE RECORDS SUMMARY | 2025-02-06 09:03 | XMS_ITS | Clinical Summary ---
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
--- OUTSIDE RECORDS SUMMARY | 2025-02-06 09:03 | XMS_ITS | Encounter Summary ---
Author Organization [facility] Address [address] [place] [address] Care Team Providers Care Card Cutter Helper Name Role Phone Scarlett Galindo Primary Care Provider Encounter Details Date Type Department Care Team (Latest Contact Info) Description 06/20/2008 Outpatient 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
--- OUTSIDE RECORDS SUMMARY | 2025-02-06 09:03 | XMS_ITS | Encounter Summary ---
Author Organization [facility] Address [address] [place] [address] Care Team Providers Care Law Office Receptionist Name Role Phone Scarlett Galindo Primary Care Provider Encounter Details Date Type Department Care Team (Late st Contact Info) Description 06/14/2008 Outpatient Historical [facility] [address] [place] [address] AMBULANCE, [facility] Social History Tobacco Use Types Packs/Day Years Used Date Smoking Tobacco: Never Assessed Sex and Gender Information Value Date Recorded Sex Assigned at Not on file Legal Sex Male 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
--- NOTE | 2025-02-06 09:12 | PC.NURSE ---
Ambulated patient from 104 to [facility] nurse station and back to 104. Patient did fine. Was stable and stated now im ready to go home.
--- NOTE | 2025-02-06 15:25 | P.PN_ITS ---
Subjective 2 Subjective: Patient was seen this morning he is alert oriented x 3, following all commands, we discussed his echocardiogram findings of hypertrophic obstructive cardiomyopathy, discussed echocardiogram findings in detail, discussed the importance of hydration, especially when he is working outside, discussed taking him off amlodipine, carvedilol, losartan, given his due to risk of reducing afterload, switching to beta-giovana such as metoprolol, Vitals/I&O/Wt Last Vital Signs Temp 98.3 F 02/06/25 12:00 Pulse 67 02/06/25 12:00 Resp 24 H 02/06/25 12:00 BP 142/86 02/06/25 12:00 Pulse Ox 96 02/06/25 12:00 O2 Del Method Room Air 02/06/25 07:23 02/06/25 02/06/25 02/06/25 06:59 14:59 22:59 Intake Total 120 / 2600 960 / 960 Output Total 1150 / 2250 875 / 875 Balance -1030 / 350 85 / 85 Weight last 48 hrs Weight 121.018 kg Weight 114.305 kg Weight 114.305 kg Physical Exam 2 Const: COMMON NORMALS: no acute distress and patient oriented x3 Resp: COMMON NORMALS: normal respiratory effort, No retractions, No use of accessory muscles and clear to auscultation bilaterally AUSCULTATION: clear to auscultation bilaterally Cardio: COMMON NORMALS: regular rate, regular rhythm, S1 normal heart sound present and S2 normal heart sound present RATE: regular rate RHYTHM: r egular rhythm HEART SOUNDS: S1 normal heart sound present and S2 normal heart sound present GI: COMMON NORMALS: Normal to inspection, nondistended, normoactive bowel sounds present and non-tender Extremity: COMMON NORMALS: no pedal edema Neuro: COMMON NORMALS: patient oriented x3 Psych: COMMON NORMALS: mental status grossly normal Data 02/06/25 01:44 02/06/25 01:44 A&P Assessment and plan 1. Syncope: Syncopal episode -Likely secondary to hypertrophic obstructive cardiomyopathy -Cardiac stress test in 2022 MPRESSIONS 1. Unremarkable Myocardial perfusion imaging 2. Normal LV ejection fraction 71% 3. LV wall motion analysis revealing no gross wall motion abnormalities. 4. Normal LV volume Low probability for coronary ischemia, based on the above findings - CT angiogram of the head and neck in 2022 showed no large vessel occlusion CONCLUSIONS Normal left ventricular size and systolic function, EF 61%. No regional wall motion abnormalities. Moderate left ventricular hypertrophy. Grade III/IV diastolic dysfunction (restrictive filling pattern), severely elevated filling pressures. Features of hypertrophic obstructive cardiomyopathy with a resting LV outflow tract velocity of 3.8 m/s with a resting peak gradient of 58 mmHg and a mean gradient of 36 mmHg Trace to mild tricuspid regurgitation . Estimated pulmonary artery peak systolic pressure of 49 mmHg. There is no pericardial effusion. There are no intracardiac masses. Compared to the study from 07/31/2022, there is significant increase in the LV outflow tract gradient Plan -Telemetry monitoring - Serial EKGs, serial troponins, telemetry monitoring - Cardiac echo - Carotid artery ultrasound - Orthostatic vitals - Aspirin, statin, Coreg 2. Uncontrolled type 2 diabetes mellitus with hyperglycemia: suggesting hyperosmolar hyperglycemia without ketoacidosis. - Continue inpatient long-acting insulin 20 units twice daily with sliding scale insulin - Monitor capillary blood glucose closely - Dietary counseling on consistent carbohydrates; encourage weight loss and exercise - Review outpatient insulin regimen and adjust prior to discharge 3. Hypertrophic obstructive cardiomyopathy: CONCLUSIONS Normal left ventricular size and systolic function, EF 61%. No regional wall motion abnormalities. Moderate left ventricular hypertrophy. Grade III/IV diastolic dysfunction (restrictive filling pattern), severely elevated filling pressures. Features of hypertrophic obstructive cardiomyopathy with a resting LV outflow tract velocity of 3.8 m/s with a resting peak gradient of 58 mmHg and a mean gradient of 36 mmHg Trace to mild tricuspid regurgitation . Estimated pulmonary artery peak systolic pressure of 49 mmHg. There is no pericardial effusion. There are no intracardiac masses. Compared to the study from 07/31/2022, there is significant increase in the LV outflow tract gradient Plan: Congestive heart failure NYHA class III : No chest pain or shortness of breath Chronic kidney disease : Baseline creatinine 1.5 mg/dL with stable BUN 23 Hypertension : Resume home blood pressure medications Chronic obstructive pulmonary disease not in exacerbation Nicotine dependence : Smoking cessation Plan for today discontinue Coreg, losartan, amlodipine watch blood pressure started on metoprolol discussed ambulation cardiology consultation, PDMP PDMP Reviewed: Not Reviewed Attestations 2 Medical Necessity Statement*: Patient requires hospitalization for hypertrophic obstructive cardiomyopathy Diagnoses Syncope R55 Uncontrolled type 2 diabetes mellitus with hyperglycemia E11.65 Glycemic state: with hyperglycemia Hypertrophic obstructive cardiomyopathy I42.1
--- NOTE | 2025-02-06 18:40 | P.CONIM_ITS ---
Providers/Reason For Consult 2 Consulting Physician/Specialty*: YA Lopez MD/cardiology Reason for Consult*: Newly diagnosed hypertrophic obstructive cardiomyopathy/syncope Requesting Physician: Dr. Lee Attending Physician: Reji Lee MD Primary Care Provider: LOTTIE Dumas History of Present Illness History of Present Illness Leo Arredondo is a 59 year old male with a history of hypertension, diastolic heart failure, type 2 diabetes, chronic kidney disease and dyslipidemia, and multiple medical problems, is admitted to hospital through the emergency room where he presented with diagnosis of hyperglycemia and hypokalemia. This patient is known to have uncontrolled diabetes and had a recent medication changes. He had an outpatient blood test which revealed blood sugar in the 500 range and a potassium of 2.9. He also has a history of syncopal episode a week ago. He is admitted to the hospital for further evaluation and management. His echocardiogram revealed moderate hypertrophy of the left ventricle with significant LV outflow tract gradient, peak gradient of 58 mmHg. Cardiology consult is requested for further cardiac evaluation recommendations. This patient is known to have diastolic heart failure and? Type II [place]. He had a Myocardial perfusion imaging 2022 which was unremarkable. He has been in his baseline state of health up until recently when he had an episode of passing out as he was getting out of his truck. 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 He got lightheaded and then passed out. This happened 2 or 3 times in a row within a period of 5 minutes. He did not have any chest pain or palpitation prior to this episode or following this episode. He never had a similar episodes in the past. He did not have any seizure activities. No bowel or bladder incontinence. He had a medication changes for the diabetes recently. He had episodes of hypoglycemia and hypoglycemia. He has been poorly compliant with his diet. He has no documented history for coronary disease. He smokes half pack a day for the last more than 30 years. No alcohol abuse or substance abuse. His father had myocardial infarction in his 50s. Paternal grandfather had myocardial infarction in his 60s or 70s. No other relevant family history. Review of Systems 2 Narrative: CONSTITUTIONAL: No fever or chills. EYES: No blurring of vision or other visual disturbances lately. ENT: No hoarseness of voice, auditory disturbances or sore throat. CARDIOVASCULAR: As mentioned above. RESPIRATORY: No significant cough. GASTROINTESTINAL: No hematemesis or melena. GENITOURINARY: No dysuria or hematuria. INTEGUMENTARY: No skin rashes or history of skin cancer. NEURO: No transient ischemic attacks or amaurosis. PSYCHIATRIC: No history of psychosis or major depression. HEMATOLOGIC: No bleeding disorders or significant anemia. ENDOCRINE: No history of polyuria or polydipsia. MUSCULOSKELETAL: No recent joint pain or swelling. ALLERGY/IMMUNOLOGY: As mentioned above. Medications/Allergies Home Medications ?Medication ?Instructions ?Recorded ?Confirmed ?Last Taken ?Type blood-glucose meter #1 ea 08/02/22 02/05/25 Unkn own Rx lancets #200 ea 08/23/22 02/05/25 Un known Rx strips #200 ea 08/23/22 02/05/25 Un known Rx flash glucose scanning reader #1 ea 09/09/22 02/05/25 Unknown Rx (FreeStyle Mima 14 Day [place]) flash glucose sensor (FreeStyle #2 ea 10/16/22 5 Unknown Rx Mima 14 Day Sensor kit) lancets 33 gauge (TRUEplus Lancets) #200 ea 08/21/23 0 02/05/25 Unknown Rx Held on 12/29/24. Instructions: patient needs appoinment blood sugar diagnostic (True #200 ea 09/11/23 02/05/25 Unknown Rx Metrix Glucose Test Strip) Held on 12/29/24. Instructions: patient needs appoinment aspirin 81 mg capsule 81 mg PO DAILY 90 days #90 c aps 02/26/24 02/05/25 02/04/25 Rx amlodipine 10 mg tablet 10 mg PO DAILY 90 days #90 t abs 04/05/24 02/05/25 02/04/25 Rx atorvastatin 40 mg tablet See Rx Instructions .Route 0 04/05/24 02/05/25 02/04/25 Rx .COMPLEX 90 days #90 tabs carvedilol 12.5 mg tablet 12.5 mg .Route BID 90 days # 180 04/05/24 02/05/25 02/04/25 Rx tabs furosemide 40 mg tablet See Rx Instructions .Route 0 04/05/24 02/05/25 02/04/25 Rx .COMPLEX 90 days #90 tabs losartan 50 mg tablet 100 mg (2 x 50 mg) PO DAILY 90 04/05/24 02/05/25 02/04/25 Rx days #180 tabs potassium chloride 20 mEq See Rx Instructions .Route 0 04/05/24 02/05/25 02/04/25 Rx tablet,extended release(part/cryst) .COMPLEX 90 days # 90 tabs pen needle, diabetic 32 gauge x #100 ea 06/08/2402/05 Unknown Rx 32 (Unifine Pentips Plus) insulin glargine 100 unit/mL (3 20 unit (0.2 mL) SUBCU T BID #15 mL 10/28/24 02/05/25 Unknown Rx mL) subcutaneous pen (Lantus Solostar U-100 Insulin) Held on 12/29/24. Instructions: patient needs appoinment hydrochlorothiazide 25 mg tablet 25 mg PO DAILY 30 day s #30 tabs 01/20/25 02/05/25 Unknown Rx insulin degludec 100 unit/mL (3 20 unit SUBCUT BID 02/05/25 02/04/25 History mL) subcutaneous pen (Tresiba FlexTouch U-100 insulin) Allergies Allergy/AdvReac Type Severity Reaction Status Date / Time No Known Allergies Allergy Verified 02/04/25 17:34 Current Medications Generic Name Dose Route Start Last Admin Trade Name Freq PRN Reason Stop Dose Admin Aspirin 81 mg 02/06/25 09:00 02/06/25 08:27 Aspirin 81 Mg Ec Tablet PO 81 mg DAILY DIONY Administration Atorvastatin Calcium 40 mg 02/06/25 09:00 02/06/25 08:27 Atorvastatin 40 Mg Tablet PO 40 mg DAILY DIONY Administration Enoxaparin Sodium 40 mg 02/05/25 10:14 02/06/25 10:33 Enoxaparin 40 Mg/0.4 Ml Syringe SUBCUT 40 mg Q24H DIONY Administration Hydrochlorothiazide 25 mg 02/06/25 09:00 02/06/25 08:27 Hydrochlorothiazide 25 Mg Tablet PO 25 mg DAILY DIONY Administration Insulin Glargine 20 unit 02/05/25 11:00 02/06/25 08:28 Insulin Glargine 100 Units/1 Ml SUBCUT 20 unit BID@0800,2000 DIONY Administration Insulin Human Lispro 0 unit 02/05/25 12:00 02/06/25 17:47 Insulin Lispro 100 Unit/1 Ml SUBCUT 4 unit WM&BEDTIME DIONY Administration Protocol Metoprolol Tartrate 25 mg 02/06/25 09:00 02/06/25 08:32 Metoprolol Tartrate 25 Mg Tablet PO 25 mg BID@0900,2100 DIONY Administration Nicotine 1 patch 02/05/25 07:06 02/06/25 17:47 Nicotine 21 Mg Patch TRANSDERMA 1 patch DAILY PRN Administration WITHDRAWAL PFSH Acute 2 PFSH: Medical History Elevated serum creatinine Colon cancer screening CHF (congestive heart failure), NYHA class III CKD (chronic kidney disease) stage 2, GFR 60-89 ml/min Essential hypertension NSTEMI (non-ST elevated myocardial infarction) Secondary hypertension Conn's syndrome COPD (chronic obstructive pulmonary disease) BPH (benign prostatic hyperplasia) Surgical History Hx laparoscopic cholecystectomy H/O knee surgery Family History Father Family history of premature coronary artery disease age 64 due to [place] Other CAD (coronary artery disease) Social History Smoking and tobacco/nicotine status: never used tobacco/nicotine Alcohol intake: never Substance/Drug Use: never Household members: significant other Housing: House Vitals/I&O/Wt Last Vital Signs Temp 98.3 F 02/06/25 12:00 Pulse 67 02/06/25 16:00 Resp 11 L 02/06/25 16:00 BP 126/72 02/06/25 16:00 Pulse Ox 97 02/06/25 16:00 O2 Del Method Room Air 02/06/25 07:23 02/06/25 02/06/25 02/06/25 06:59 14:59 22:59 Intake Total 120 / 2600 960 / 960 480 / 1440 Output Total 1150 / 2250 875 / 875 Balance -1030 / 350 85 / 85 480 / 565 Weight last 48 hrs Weight 266 lb 12.8 oz Weight 252 lb Physical Exam 2 Narrative: GENERAL: The patient is alert and oriented times three. Not in any acute distress. HEENT: No significant pallor, icterus or lymphadenopathy.Oral cavity: There are no mucous membrane lesions. NECK: Trachea appears to be central. No masses noted. No JVD or thyromegaly appreciated. RESPIRATORY: Chest is symmetrical. No intercostals muscle retraction or any accessory muscle activation. There is no chest wall tenderness. Breath sounds are heard bilaterally. No rales or rhonchi heard. No evidence of any consolidation. BREASTS: Deferred. HEART: The heart sounds are normal. No S3 or S4. Systolic murmur in the left sternal border. No pericardial rub ABDOMEN: No vessel pulsations or distention. No tenderness. No organomegaly appreciated. Bowel sounds are normally heard. : Deferred. RECTAL: Deferred. LYMPHATIC: No lymphadenopathy noted in the neck. EXTREMITIES: No edema or cyanosis. No clubbing. MUSCULOSKELETAL: No acute joint deformities or swelling SKIN: There are no significant rashes or ecchymosis NEUROPSYCHIATRIC: The patient is alert and oriented x3. Appears to be in a good mood. No tremors or rigidity noted. Data 02/06/25 01:44 02/06/25 01:44 Other Labs: Laboratory Last Values WBC 7.61 10^3/uL (3.29-11.43) 02/06/25 01:44 RBC 4.85 10^6/uL (3.85-5.65) 02/06/25 01:44 Hgb 14.20 g/dL (11.27-16.99) 02/06/25 01:44 Hct 40.8 % (37-53) 02/06/25 01:44 MCV 84.1 fl (82-101) 02/06/25 01:44 MCH 29.3 pg (27-33) 02/06/25 01:44 MCHC 34.8 g/dL (30-55) 02/06/25 01:44 RDW 12.6 % (12.1-15.1) 02/06/25 01:44 Plt Count 155 10^3/cmm (157-399) L 02/06/25 01:44 MPV 11.9 fL (7.4-10.4) H 02/06/25 01:44 Neut % (Auto) 61.0 % 02/06/25 01:44 Lymph % (Auto) 27.6 % 02/06/25 01:44 [place] % (Auto) 6.8 % 02/06/25 01:44 Eos % (Auto) 3.5 % 02/06/25 01:44 Baso % (Auto) 0.4 % 02/06/25 01:44 Neut # (Auto) 4.64 10^3/uL (1.8-7.7) 02/06/25 01:44 Lymph # (Auto) 2.1 10^3/uL (0.8-4.8) 02/06/25 01:44 [place] # (Auto) 0.5 10^3/uL (0.2-0.9) 02/06/25 01:44 Eos # (Auto) 0.3 10^3/uL (0.0-0.8) 02/06/25 01:44 Baso # (Auto) 0.0 10^3/uL (0.0-0.1) 02/06/25 01:44 Nucleated RBC % (auto) 0 % 02/06/25 01:44 Nucleated RBCs # 0.0 /100WBC 02/06/25 01:44 ESR < 1 mm/hr (0-10) 02/05/25 13:08 Sodium 142 mmol/L (136-145) 02/06/25 01:44 Potassium 2.9 mmol/L (3.5-5.1) L 02/06/25 01:44 Chloride 103 mmol/L (98-107) 02/06/25 01:44 Carbon Dioxide 25 mmol/L (22-29) 02/06/25 01:44 Anion Gap 16.9 (5-19) 02/06/25 01:44 BUN 13 mg/dL (8-23) 02/06/25 01:44 Creatinine 1.1 mg/dL (0.7-1.2) 02/06/25 01:44 GFR Calculation 68.1 mL/min (90-130) L 02/06/25 01:44 Glucose 230 mg/dL (65-115) H 02/06/25 01:44 POC Glucose 219 mg/dL (70-110) H 02/06/25 16:49 Calculated Osmolality 301 mOsm/kg (285-295) H 02/06/25 01:44 Calcium 8.6 mg/dL (8.5-10.5) 02/06/25 01:44 Magnesium 2.1 mg/dL (1.7-2.3) 02/04/25 20:18 Total Bilirubin 0.4 mg/dL (0.15-1.2) 02/06/25 01:44 AST 31 U/L (0-40) 02/06/25 01:44 ALT 46 U/L (0-41) H 02/06/25 01:44 Alkaline Phosphatase 111 U/L (40-130) 02/06/25 01:44 Troponin T Baseline 19 ng/L (0-15) H 02/05/25 13:08 Troponin T 120 Minute 17.23 ng/L (0-15) H 02/05/25 15:05 Delta Troponin T -1.77 ABS# (0-10) L 02/05/25 15:05 Troponin T Hi Sens 6Hr 18.42 ng/L (0-15) H 02/05/25 19:21 Troponin T Hi Sens 6Hr Delta -0.58 ng/L (0-12) L 02/05/25 19:21 C-Reactive Protein 3.0 mg/L (0.0-4.9) 02/05/25 13:08 Total Protein 6.7 g/dL (6.6-8.7) 02/06/25 01:44 Albumin 3.6 g/dL (3.5-5.2) 02/06/25 01:44 Globulin 3.1 g/dL (1.3-4.6) 02/06/25 01:44 Procalcitonin 0.11 ng/mL (0-0.5) 02/05/25 13:08 Serum Ketones Negative (Negative) 02/04/25 20:18 Other data: The EKG showed a sinus rhythm with a incomplete right bundle branch block. Possible old inferior wall [place]. No significant ST-T changes. A&P Assessment and plan 1. Syncope, unspecified syncope type: The etiology of the syncope is not clear at this time. Hypoglycemia, hypokalemia, arrhythmia, hypotension, etc. are considerations. Apparently this happened a week ago. No syncopal or near syncopal episodes, since the hospital admission. No significant arrhythmias on the monitor. Even though he has a significant LV outflow tract gradient, that does not seem to be severe enough to make him pass out. 2. Hypertrophic obstructive cardiomyopathy: The LV outflow peak systolic gradient was 58 with a mean gradient of 36 mmHg. There was no significant change with the Valsalva maneuver. Patient is on carvedilol. This may be continued at this time. 3. Chronic diastolic heart failure: Currently the heart failure seems to be compensated. 4. Uncontrolled type 2 diabetes mellitus with hyperglycemia: Appropriate management of the diabetes, as per the primary. 5. CKD (chronic kidney disease) stage 2, GFR 60-89 ml/min: The function seems to be stable at this time. Plan: To look for any exercise-induced arrhythmia, and regular treadmill exercise stress test would be appropriate, once electrolyte abnormalities are properly treated. Patient may be kept on the current medication for the time being. Since he had an unremarkable Myocardial perfusion imaging and also in the absence of any chest pain or any other specific cardiac symptoms, I may hold off on any further investigations at this point. He need to be closely monitored on telemetry to look for any spontaneous arrhythmia. Based on the clinical progress, further recommendations will be made. May need to consider sending the patient home with an event monitor to evaluate for any spontaneous arrhythmia. Thank you for the opportunity to evaluate this patient and make these recommendations PDMP PDMP Reviewed: Not Reviewed Coding Level of Care Code 65949 Diagnoses Syncope, unspecified syncope type R55 Syncope type: unspecified Hypertrophic obstructive cardiomyopathy I42.1 Chronic diastolic heart failure I50.32 Heart failure chronicity: chronic Uncontrolled type 2 diabetes mellitus with hyperglycemia E11.65 Glycemic state: with hyperglycemia CKD (chronic kidney disease) stage 2, GFR 60-89 ml/min N18.2
[2025-02-07 03:53] VITALS: BP 159/97; PULSE 62; RESP 20; TEMP 36.7
[2025-02-07 05:06] LABS: Alanine Aminotransferase 44 U/L (0-41); Albumin Level 3.6 g/dL (3.5-5.2); Alkaline Phosphatase 108 U/L (40-130); Anion Gap 15.4 (5-19); Aspartate Amino Transferase 32 U/L (0-40); Blood Urea Nitrogen 10 mg/dL (8-23); Calcium 8.9 mg/dL (8.5-10.5); Carbon Dioxide 25 mmol/L (22-29); Chloride 99 mmol/L (98-107); Creatinine Clr Calc Pharmacy 105.7143; Globulin 3.2 g/dL (1.3-4.6); Glucose 267 mg/dL (65-115); Osmolality Calculated 290 mOsm/kg (285-295); Potassium 3.4 mmol/L (3.5-5.1); Sodium 136 mmol/L (136-145); Total Protein 6.8 g/dL (6.6-8.7)
[2025-02-07 07:15] LABS: Hematocrit 42.6 % (37-53); Hemoglobin 15.00 g/dL (11.27-16.99); Mean Corpuscular HGB Conc 35.2 g/dL (30-55); Mean Corpuscular Hemoglobin 29.9 pg (27-33); Mean Corpuscular Volume 84.9 fl (82-101); Nucleated Red Blood Cells % 0 %; Platelet Count 160 10^3/cmm (157-399); Red Blood Count 5.02 10^6/uL (3.85-5.65); White Blood Count 8.80 10^3/uL (3.29-11.43)
[2025-02-07 07:53] VITALS: BP 129/83; PULSE 63; RESP 18; TEMP 36.7; O2SAT 98
--- NOTE | 2025-02-07 07:58 | P.PN_ITS ---
Subjective 2 Subjective: Patient had a regular treadmill exercise stress test today. He had a hypertensive response to exercise. No exercise-induced chest pain or cardiac arrhythmia. Suboptimal stress. He attained a 77% of the target heart rate, 7.0 METS Patient continues remain stable with no recurrence of syncope or near syncope. Medications: Medication Review Details: Current Medications Acetaminophen (Acetaminophen 325 Mg Tablet) 650 mg PO Q6H PRN PRN Reason: Mild/Mod Pain Or Temp >/= 101 Aspirin (Aspirin 81 Mg Ec Tablet) 81 mg PO DAILY [facility] Last Admin: 02/06/25 08:27 Dose: 81 mg Atorvastatin Calcium (Atorvastatin 40 Mg Tablet) 40 mg PO DAILY [facility] Last Admin: 02/06/25 08:27 Dose: 40 mg Enoxaparin Sodium (Enoxaparin 40 Mg/0.4 Ml Syringe) 40 mg SUBCUT Q24H [facility] Last Admin: 02/06/25 10:33 Dose: 40 mg Glucagon (Glucagon 1 Mg/Ml Kit 1 Ml) 1 mg IM ONCE PRN; Protocol PRN Reason: Adult Acute Hypoglycemia Nursing Prot. Hydrochlorothiazide (Hydrochlorothiazide 25 Mg Tablet) 25 mg PO DAILY [facility] Last Admin: 02/06/25 08:27 Dose: 25 mg Dextrose (D5w) 500 mls @ 0 mls/hr IV ONCE PRN; Protocol PRN Reason: Adult Acute Hypoglycemia Prot Dextrose (D10w) 125 mls @ 750 mls/hr IV PRN PRN; Protocol PRN Reason: Adult Acute Hypoglycemia Nursing Protocol Dextrose (D10w) 250 mls @ 1,000 mls/hr IV PRN PRN; Protocol PRN Reason: Adult Acute Hypoglycemia Nursing Protocol Insulin Glargine (Insulin Glargine 100 Units/1 Ml) 20 unit SUBCUT BID@0800,2000 [facility] Last Admin: 02/06/25 21:14 Dose: 20 unit Insulin Human Lispro (Insulin Lispro 100 Unit/1 Ml) 0 unit SUBCUT WM&BEDTIME [facility]; Protocol Last Admin: 02/06/25 21:14 Dose: 10 unit Metoprolol Tartrate (Metoprolol Tartrate 25 Mg Tablet) 25 mg PO BID@0900,2100 [facility] Last Admin: 02/06/25 20:35 Dose: 25 mg Nicotine (Nicotine 21 Mg Patch) 1 patch TRANSDERMA DAILY PRN PRN Reason: WITHDRAWAL Last Admin: 02/06/25 17:47 Dose: 1 patch Nicotine Polacrilex (Nicotine 4 Mg Lozenge) 4 mg MUCOUS MEM Q4H PRN PRN Reason: NICOTINE CRAVINGS Ondansetron HCl (Ondansetron 2 Mg/Ml Sdv 2 Ml) 4 mg IVP Q8H PRN PRN Reason: vomiting, or N/V if npo Vitals/I&O/Wt Last Vital Signs Temp 98.0 F 02/07/25 07:53 Pulse 63 02/07/25 07:53 Resp 18 02/07/25 07:53 BP 129/83 02/07/25 07:53 Pulse Ox 98 02/07/25 07:53 O2 Del Method Room Air 02/07/25 07:53 02/06/25 02/07/25 02/07/25 22:59 06:59 14:59 Intake Total 480 / 1440 Output Total 1800 / 2675 Balance 480 / 565 -1800 / -1235 Weight last 48 hrs Weight 263 lb Weight 266 lb 12.8 oz Weight 252 lb Physical Exam 2 Narrative: GENERAL: The patient is alert and oriented times three. Not in any acute distress. HEENT: No significant pallor, icterus or lymphadenopathy.Oral cavity: There are no mucous membrane lesions. NECK: Trachea appears to be central. No masses noted. No JVD or thyromegaly appreciated. RESPIRATORY: Chest is symmetrical. No intercostals muscle retraction or any accessory muscle activation. There is no chest wall tenderness. Breath sounds are heard bilaterally. No rales or rhonchi heard. No evidence of any consolidation. BREASTS: Deferred. HEART: The heart sounds are normal. No S3 or S4. Systolic murmur in the left sternal border. No pericardial rub ABDOMEN: No vessel pulsations or distention. No tenderness. No organomegaly appreciated. Bowel sounds are normally heard. : Deferred. RECTAL: Deferred. LYMPHATIC: No lymphadenopathy noted in the neck. EXTREMITIES: No edema or cyanosis. No clubbing. MUSCULOSKELETAL: No acute joint deformities or swelling SKIN: There are no significant rashes or ecchymosis NEUROPSYCHIATRIC: The patient is alert and oriented x3. Appears to be in a good mood. No tremors or rigidity noted. Data 02/07/25 06:45 02/07/25 04:30 Other Labs: Laboratory Last Values WBC 8.80 10^3/uL (3.29-11.43) 02/07/25 06:45 Corrected WBC Cancelled 02/07/25 04:30 RBC 5.02 10^6/uL (3.85-5.65) 02/07/25 06:45 Hgb 15.00 g/dL (11.27-16.99) 02/07/25 06:45 Hct 42.6 % (37-53) 02/07/25 06:45 MCV 84.9 fl (82-101) 02/07/25 06:45 MCH 29.9 pg (27-33) 02/07/25 06:45 MCHC 35.2 g/dL (30-55) 02/07/25 06:45 RDW 12.9 % (12.1-15.1) 02/07/25 06:45 Plt Count 160 10^3/cmm (157-399) 02/07/25 06:45 MPV 11.4 fL (7.4-10.4) H 02/07/25 06:45 Gran % Cancelled 02/07/25 04:30 Neut % (Auto) 64.9 % 02/07/25 06:45 Lymph % (Auto) 22.6 % 02/07/25 06:45 [place] % (Auto) 7.7 % 02/07/25 06:45 Eos % (Auto) 3.4 % 02/07/25 06:45 Baso % (Auto) 0.6 % 02/07/25 06:45 Neut # (Auto) 5.71 10^3/uL (1.8-7.7) 02/07/25 06:45 Lymph # (Auto) 2.0 10^3/uL (0.8-4.8) 02/07/25 06:45 [place] # (Auto) 0.7 10^3/uL (0.2-0.9) 02/07/25 06:45 Eos # (Auto) 0.3 10^3/uL (0.0-0.8) 02/07/25 06:45 Baso # (Auto) 0.1 10^3/uL (0.0-0.1) 02/07/25 06:45 Absolute Gran (auto) Cancelled 02/07/25 04:30 Nucleated RBC % (auto) 0 % 02/07/25 06:45 Nucleated RBCs # 0.0 /100WBC 02/07/25 06:45 ESR < 1 mm/hr (0-10) 02/05/25 13:08 Sodium 136 mmol/L (136-145) 02/07/25 04:30 Potassium 3.4 mmol/L (3.5-5.1) L 02/07/25 04:30 Chloride 99 mmol/L (98-107) 02/07/25 04:30 Carbon Dioxide 25 mmol/L (22-29) 02/07/25 04:30 Anion Gap 15.4 (5-19) 02/07/25 04:30 BUN 10 mg/dL (8-23) 02/07/25 04:30 Creatinine 1.0 mg/dL (0.7-1.2) 02/07/25 04:30 GFR Calculation 76.0 mL/min (90-130) L 02/07/25 04:30 Glucose 267 mg/dL (65-115) H 02/07/25 04:30 POC Glucose 209 mg/dL (70-110) H 02/07/25 06:23 Calculated Osmolality 290 mOsm/kg (285-295) 02/07/25 04:30 Calcium 8.9 mg/dL (8.5-10.5) 02/07/25 04:30 Magnesium 2.1 mg/dL (1.7-2.3) 02/04/25 20:18 Total Bilirubin 0.4 mg/dL (0.15-1.2) 02/07/25 04:30 AST 32 U/L (0-40) 02/07/25 04:30 ALT 44 U/L (0-41) H 02/07/25 04:30 Alkaline Phosphatase 108 U/L (40-130) 02/07/25 04:30 Troponin T Baseline 19 ng/L (0-15) H 02/05/25 13:08 Troponin T 120 Minute 17.23 ng/L (0-15) H 02/05/25 15:05 Delta Troponin T -1.77 ABS# (0-10) L 02/05/25 15:05 Troponin T Hi Sens 6Hr 18.42 ng/L (0-15) H 02/05/25 19:21 Troponin T Hi Sens 6Hr Delta -0.58 ng/L (0-12) L 02/05/25 19:21 C-Reactive Protein 3.0 mg/L (0.0-4.9) 02/05/25 13:08 Total Protein 6.8 g/dL (6.6-8.7) 02/07/25 04:30 Albumin 3.6 g/dL (3.5-5.2) 02/07/25 04:30 Globulin 3.2 g/dL (1.3-4.6) 02/07/25 04:30 Procalcitonin 0.11 ng/mL (0-0.5) 02/05/25 13:08 Serum Ketones Negative (Negative) 02/04/25 20:18 A&P Assessment and plan 1. Syncope, unspecified syncope type: Patient has no recurrence of syncope. No exercise-induced arrhythmia or syncopal/near syncopal episodes. At this point, the patient may not require any further cardiac workup. If he is going home today, it might be appropriate to put him on an event monitor to evaluate for any spontaneous arrhythmia. 2. Hypertrophic obstructive cardiomyopathy: The LV outflow peak systolic gradient was 58 with a mean gradient of 36 mmHg. There was no significant change with the Valsalva maneuver. Patient is on carvedilol. This may be continued at this time. I am increase the dose of the metoprolol to 50 mg p.o. twice daily for better control of the blood pressure as well as for the improvement of the outflow tract gradient 3. Chronic diastolic heart failure: Currently the heart failure seems to be compensated. Plan: Since the patient's overall cardiovascular status seems to be stable, he may be discharged home from a cardiac standpoint. May be discharged home with an outpatient event monitoring. Increase the dose of metoprolol as mentioned above Appointment with me in the office in 1 PDMP PDMP Reviewed: Not Reviewed Attestations 2 Medical Necessity Statement*: Possible discharge home today Coding Level of Care Code 05963 Diagnoses Syncope, unspecified syncope type R55 Syncope type: unspecified Hypertrophic obstructive cardiomyopathy I42.1 Chronic diastolic heart failure I50.32 Heart failure chronicity: chronic
[2025-02-07] MEDS: insulin glargine 100 units/1 mL 20 UNIT SUBCUT (08:00)
--- NOTE | 2025-02-07 08:05 | PC.SOCIAL ---
IMM Update Pg. 2 of IMM updated and reviewed with patient, who verbalized understanding. Copy provided.
--- NOTE | 2025-02-07 08:07 | ECG_ITS ---
[facility] Test Date: 2025-02-07 Pat Name: Leo Arredondo Department: Room: 104 Gender: Male [employer]: : 1965 Requested By: Ariana Lopez Order Number: [id number] Jayant MD: Ariana Lopez M.D. Interpretive Statements Fairly uniform myocardial tracer uptake PROCEDURE: At the baseline, the patient's blood pressure was with a heart rate of. The baseline electrocardiogram showed normal sinus rhythm with normal ST-Ts. Poor R wave progression.. The patient exercised for 6 4 minutes and 38 seconds on a standard Mk protocol. Patient attained a maximum heart rate of 124 beats per minute(77% of the maximum predicted heart rate) with a blood pressure at the peak exercise of 218/86mm Hg. The EKG at the peak exercise revealed no significant changes. Patient did not have any chest pain or any significant cardiac arrhythmias with the exercise During the recovery phase, there were no new changes. Blood pressure at the end of the recovery phase was 180/99 mm Hg with a heart rate of left anterior descending artery per minute. CONCLUSION: 1. No significant EKG changes with the treadmill exercise . 2. No exercise-induced chest pain or cardiac arrhythmia 3. Impaired exercise tolerance, attained a maximum of 7.0 METs 4. Hypertensive response to exercise 5. Suboptimal stress 6. Possibly no significant e coronary ischemia based on the above finding Electronically Signed On 02-07-2025 13:47:16 CDT by Ariana Lopez M.D. [email or web address]
--- NOTE | 2025-02-07 08:15 | PC.NURSE ---
Addendum entered by Zoila Peck RN 02/07/25 09:20: hold metoprolol until after stress test. Original Note: Dr Lopez asked nursing staff to order a treadmill stress test for this patient today. Hold metoprolol 25mg this morning due to stress test.
[2025-02-07 08:53] VITALS: BP 180/99; PULSE 83
[2025-02-07 11:40] VITALS: BP 163/99
[2025-02-07 11:58] VITALS: BP 150/95; BP 151/89; BP 151/96; PULSE 67; PULSE 70; PULSE 80; RESP 20; TEMP 36.3; O2SAT 97
--- NOTE | 2025-02-07 14:07 | P.DS_ITS ---
Discharge Providers Date of Admission: 02/05/25 07:53 Date of Discharge: February 07, 2025 Attending Provider at Admission: Reji Lee MD Attending Provider at Discharge: Reji Lee MD Primary Care Provider: LOTTIE Dumas Diagnoses at Discharge Discharge Diagnosis 1. Syncope, unspecified syncope type: 2. Hypertrophic obstructive cardiomyopathy: 3. Chronic diastolic heart failure: 4. Uncontrolled type 2 diabetes mellitus with hyperglycemia: 5. CKD (chronic kidney disease) stage 2, GFR 60-89 ml/min: Reason for Visit Reason for Visit: Low potassium, high blood thiner Hospital Course Hospital Course This is a 59-year-old male with a past medical history of CHF, CKD, hypertension, COPD, BPH insulin-dependent type 2 diabetes mellitus who presents [facility] due to syncopal episode Patient was admitted to [facility] for syncopal episode --Cardiac stress test in 2022 MPRESSIONS 1. Unremarkable Myocardial perfusion imaging 2. Normal LV ejection fraction 71% 3. LV wall motion analysis revealing no gross wall motion abnormalities. 4. Normal LV volume Low probability for coronary ischemia, based on the above findings - CT angiogram of the head and neck in 2022 showed no large vessel occlusion -Cardiac echo CONCLUSIONS Normal left ventricular size and systolic function, EF 61%. No regional wall motion abnormalities. Moderate left ventricular hypertrophy. Grade III/IV diastolic dysfunction (restrictive filling pattern), severely elevated filling pressures. Features of hypertrophic obstructive cardiomyopathy with a resting LV outflow tract velocity of 3.8 m/s with a resting peak gradient of 58 mmHg and a mean gradient of 36 mmHg Trace to mild tricuspid regurgitation . Estimated pulmonary artery peak systolic pressure of 49 mmHg. There is no pericardial effusion. There are no intracardiac masses. Compared to the study from 07/31/2022, there is significant increase in the LV outflow tract gradient -Carotid artery ultrasound no acute findings - Cardiology was consulted, recommended treadmill stress testing which was within normal limits - Discussed with patient, I think that the cause of his syncopal episode is likely combination of dehydration, Coreg/amlodipine, and findings on echo concerning for hypertrophic cardiomyopathy - I have discharged him with instructions to discontinue amlodipine, Coreg - Patient was advised to hydrate well, especially during work, as he is i ncreased risk of syncopal episodes - I have advised him to avoid driving, avoid the heat, especially given his work, morbidity and mortality associated with his underlying condition, and the risk to other drivers/people on the road - If any recurrence or syncopal episodes to immediately call 9 11 Physical Exam Const: COMMON NORMALS: no acute distress and patient oriented x3 Resp: COMMON NORMALS: normal respiratory effort, No retractions, No use of accessory muscles and clear to auscultation bilaterally AUSCULTATION: clear to auscultation bilaterally Cardio: COMMON NORMALS: regular rate, regular rhythm, S1 normal heart sound present and S2 normal heart sound present RATE: regular rate RHYTHM: regu lar rhythm HEART SOUNDS: S1 normal heart sound present and S2 normal heart sound present GI: COMMON NORMALS: Normal to inspection, nondistended, normoactive bowel sounds present and non-tender Extremity: COMMON NORMALS: no pedal edema Neuro: COMMON NORMALS: patient oriented x3 Psych: COMMON NORMALS: mental status grossly normal Discharge Data Studies Completed and Pending Completed Studies During Hospitalization Category Date Time Status Cardiac Stress Test Request Routine Exams 02/07/25 08:07 Completed CV carotid duplex BI* [id number] Routine Ultrasound 02/05/25 06:57 Completed CV. echo complete* [id number] Routine Ultrasound 02/05/25 06:57 Completed Pending at discharge Category Date Time Status Complete Blood Count w/Auto AM LABS Lab 02/08/25 04:00 Ordered Complete Blood Count w/Auto AM LABS Lab 02/09/25 04:00 Ordered Comprehensive Metabolic Panel AM LABS Lab 02/08/25 04:00 Ordered Comprehensive Metabolic Panel AM LABS Lab 02/09/25 04:00 Ordered Radiology Impressions Carotid Doppler Study 02/05/25 06:57 IMPRESSION: No internal carotid arterial stenosis. REFERENCES: SRU CRITERIA. The degree of internal carotid artery stenosis is based on criteria defined by the Society of Radiologists in Ultrasound (SRU). Normal is no stenosis. Mild is less than 50% stenosis. Moderate is 50-69% stenosis. Severe is greater than 69% stenosis to near occlusion. Near occlusion is a markedly narrowed lumen. Total occlusion is no detectable patent lumen. Reference: Marcial Beaver, et al. Carotid Artery Stenosis: Metz-Scale and Doppler US Diagnosis-Society of Radiologists in Ultrasound Consensus Conference. Radiology 2003; 229:340-346. Laboratory Results WBC 8.80 10^3/uL (3.29-11.43) 02/07/25 06:45 Corrected WBC Cancelled 02/07/25 04:30 RBC 5.02 10^6/uL (3.85-5.65) 02/07/25 06:45 Hgb 15.00 g/dL (11.27-16.99) 02/07/25 06:45 Hct 42.6 % (37-53) 02/07/25 06:45 MCV 84.9 fl (82-101) 02/07/25 06:45 MCH 29.9 pg (27-33) 02/07/25 06:45 MCHC 35.2 g/dL (30-55) 02/07/25 06:45 RDW 12.9 % (12.1-15.1) 02/07/25 06:45 Plt Count 160 10^3/cmm (157-399) 02/07/25 06:45 MPV 11.4 fL (7.4-10.4) H 02/07/25 06:45 Gran % Cancelled 02/07/25 04:30 Neut % (Auto) 64.9 % 02/07/25 06:45 Lymph % (Auto) 22.6 % 02/07/25 06:45 [place] % (Auto) 7.7 % 02/07/25 06:45 Eos % (Auto) 3.4 % 02/07/25 06:45 Baso % (Auto) 0.6 % 02/07/25 06:45 Neut # (Auto) 5.71 10^3/uL (1.8-7.7) 02/07/25 06:45 Lymph # (Auto) 2.0 10^3/uL (0.8-4.8) 02/07/25 06:45 [place] # (Auto) 0.7 10^3/uL (0.2-0.9) 02/07/25 06:45 Eos # (Auto) 0.3 10^3/uL (0.0-0.8) 02/07/25 06:45 Baso # (Auto) 0.1 10^3/uL (0.0-0.1) 02/07/25 06:45 Absolute Gran (auto) Cancelled 02/07/25 04:30 Nucleated RBC % (auto) 0 % 02/07/25 06:45 Nucleated RBCs # 0.0 /100WBC 02/07/25 06:45 ESR < 1 mm/hr (0-10) 02/05/25 13:08 Sodium 136 mmol/L (136-145) 02/07/25 04:30 Potassium 3.4 mmol/L (3.5-5.1) L 02/07/25 04:30 Chloride 99 mmol/L (98-107) 02/07/25 04:30 Carbon Dioxide 25 mmol/L (22-29) 02/07/25 04:30 Anion Gap 15.4 (5-19) 02/07/25 04:30 BUN 10 mg/dL (8-23) 02/07/25 04:30 Creatinine 1.0 mg/dL (0.7-1.2) 02/07/25 04:30 GFR Calculation 76.0 mL/min (90-130) L 02/07/25 04:30 Glucose 267 mg/dL (65-115) H 02/07/25 04:30 POC Glucose 259 mg/dL (70-110) H 02/07/25 11:37 Calculated Osmolality 290 mOsm/kg (285-295) 02/07/25 04:30 Calcium 8.9 mg/dL (8.5-10.5) 02/07/25 04:30 Magnesium 2.1 mg/dL (1.7-2.3) 02/04/25 20:18 Total Bilirubin 0.4 mg/dL (0.15-1.2) 02/07/25 04:30 AST 32 U/L (0-40) 02/07/25 04:30 ALT 44 U/L (0-41) H 02/07/25 04:30 Alkaline Phosphatase 108 U/L (40-130) 02/07/25 04:30 Troponin T Baseline 19 ng/L (0-15) H 02/05/25 13:08 Troponin T 120 Minute 17.23 ng/L (0-15) H 02/05/25 15:05 Delta Troponin T -1.77 ABS# (0-10) L 02/05/25 15:05 Troponin T Hi Sens 6Hr 18.42 ng/L (0-15) H 02/05/25 19:21 Troponin T Hi Sens 6Hr Delta -0.58 ng/L (0-12) L 02/05/25 19:21 C-Reactive Protein 3.0 mg/L (0.0-4.9) 02/05/25 13:08 Total Protein 6.8 g/dL (6.6-8.7) 02/07/25 04:30 Albumin 3.6 g/dL (3.5-5.2) 02/07/25 04:30 Globulin 3.2 g/dL (1.3-4.6) 02/07/25 04:30 Procalcitonin 0.11 ng/mL (0-0.5) 02/05/25 13:08 Serum Ketones Negative (Negative) 02/04/25 20:18 Vitals Last Vital Signs Temp 97.4 F L 02/07/25 11:58 Pulse 80 02/07/25 11:58 Resp 20 H 02/07/25 11:58 BP 151/96 02/07/25 11:58 Pulse Ox 97 02/07/25 11:58 O2 Del Method Room Air 02/07/25 11:58 Discharge Plan Discharge Patient Disposition: Home Condition: Stable Prescriptions: New metoprolol tartrate 25 mg Tablet 50 mg PO BID@0900,2100 30 Days Qty: 60 0RF Continued aspirin 81 mg capsule 81 mg PO DAILY 90 Days Qty: 90 1RF hydrochlorothiazide 25 mg tablet 25 mg PO DAILY 30 Days Qty: 30 0RF atorvastatin 40 mg tablet See Rx Instructions .ROUTE .COMPLEX 90 Days Qty: 90 1RF Dose Instruction: TAKE 1 TABLET BY MOUTH DAILY; MUST have follow-up FOR further refills] Rx Instructions: TAKE 1 TABLET BY MOUTH DAILY; MUST have follow-up FOR further refills] losartan 50 mg tablet 100 mg PO DAILY 90 Days Qty: 180 1RF potassium chloride 20 mEq tablet,ER particles/crystals See Rx Instructions .ROUTE .COMPLEX 90 Days Qty: 90 1RF Dose Instruction: TAKE 1 TABLET BY MOUTH DAILY Rx Instructions: TAKE 1 TABLET BY MOUTH DAILY insulin degludec [Tresiba FlexTouch U-100] 100 unit/mL (3 mL) insulin pen 20 unit SUBCUT BID Held furosemide 40 mg tablet See Rx Instructions .ROUTE .COMPLEX 90 Days Qty: 90 1RF Hold Instructions: Resume on 02/14/25. hold until you see cardiology, and only as needed lasix Dose Instruction: TAKE 1 TABLET BY MOUTH DAILY Rx Instructions: TAKE 1 TABLET BY MOUTH DAILY Discontinued amlodipine 10 mg tablet 10 mg PO DAILY 90 Days Qty: 90 1RF carvedilol 12.5 mg tablet 12.5 mg .ROUTE BID 90 Days Qty: 180 1RF Rx Instructions: 12.5 mg twice a day; insulin glargine [Lantus Solostar U-100 Insulin] 100 unit/mL (3 mL) insulin pen 20 unit SUBCUT BID Qty: 15 3RF No Action (DME) lancets See Rx Instructions .Route .MEDSUPPLY Qty: 200 6RF Rx Instructions: check BS 6 times a day (DME) strips See Rx Instructions .Route .MEDSUPPLY Qty: 200 6RF Rx Instructions: check BS 6 times a day (DME) FreeStyle [place] 14 Day [place] Misc See Rx Instructions .Route Qty: 1 0RF Rx Instructions: As directed (DME) FreeStyle [place] 14 Day Sensor Kit See Rx Instructions .Route Qty: 2 6RF Rx Instructions: As directed (DME) lancets [TRUEplus Lancets] 33 gauge misc See Rx Instructions .Route Qty: 200 1RF Rx Instructions: up to 6times (DME) True Metrix Glucose Test Strip Strip See Rx Instructions .ROUTE .COMPLEX Qty: 200 10RF Dose Instruction: USE TO CHECK BLOOD SUGAR UP TO 6 TIMES DAILY Rx Instructions: USE TO CHECK BLOOD SUGAR UP TO 6 TIMES DAILY (DME) pen needle, diabetic [Unifine Pentips Plus] 32 gauge x 5/32 needle See Rx Instructions .ROUTE .COMPLEX Qty: 100 5RF Dose Instruction: USE DIRECTED TO CHECK BLOOD GLUCOSE Rx Instructions: USE DIRECTED TO CHECK BLOOD GLUCOSE (DME) blood-glucose meter Misc See Rx Instructions .Route Qty: 1 0RF Rx Instructions: As directed Vp Customer Service OK for DC: Cardiology Discharge Order = DC NOW: Discharge Order (Routine); Ordered 02/07/25 Ordered By: Reji Lee Referrals: Ariana Lopez MD [Physician, Cardiology] - 02/14/25 1:30 pm Referral Note: ELEANOR Burnett, [facility] [employer] [facility]ER [Primary Care Provider, Family Practice] - 02/11/25 10:20 am Discharge Diet: Cardiac Discharge Activity: Resume usual activity Patient Instructions: Metoprolol (By mouth), Chronic Kidney Disease (DC), Syncope (DC), CHF Stoplight, Opioid Safety, Patient Portal & Lida Instructions Activity Restrictions/Additional Instructions: -please hydrate well at least 2-3L of fluid a day -please follow up cardiology -please wear event monitor as prescribed Discharge Attestations Time Spent in Discharge Care*: greater than 30 min Status at Discharge: Cognitive status at discharge: cognitively intact , Behavioral status at discharge: cooperative , Quality Metrics Clinical Quality Measures [ No reported AMI, CVA or VTE this stay] Coding Level of Care Code 22920 Total time (in minutes) for Discharge: 45 Diagnoses Syncope, unspecified syncope type R55 Syncope type: unspecified Hypertrophic obstructive cardiomyopathy I42.1 Chronic diastolic heart failure I50.32 Heart failure chronicity: chronic Uncontrolled type 2 diabetes mellitus with hyperglycemia E11.65 Glycemic state: with hyperglycemia CKD (chronic kidney disease) stage 2, GFR 60-89 ml/min N18.2
--- NOTE | 2025-02-07 14:45 | PC.NURSE ---
Provided patient with instruction on event monitor and placed device patient verbalized understanding and who to call if problems arise, Discharge instructions provided with mew and changed medication and as well as diagnosis and home monitoring with the chf stop light all instruction provide verbally and in written form patient verbalizes understanding patient accompanied via wheel chair to Private vehicle all belongings and discharge instructions in hand
== END 2025-02-07 14:53 | disposition home or self-care (01) ==
LOC: ER 02-05 09:45 → ER IP 02-05 14:43 → CSU 02-05 15:42
PROVIDERS: Internal Medicine; Admitting Provider Family Medicine; Emergency Provider Student in an Organized Health Care Education/Training Program; PCP Nurse Practitioner Family; Visit Provider Family Medicine
DX: R55 Syncope and collapse (principal); I42.1 Obstructive hypertrophic cardiomyopathy; I50.32 Chronic diastolic (congestive) heart failure; E11.22 Type 2 diabetes mellitus with diabetic chronic kidney disease; I12.9 Hypertensive chronic kidney disease with stage 1 through stage 4 chronic kidney disease, or unspecified chronic kidney disease; N18.2 Chronic kidney disease, stage 2 (mild); I25.2 Old myocardial infarction; J44.9 Chronic obstructive pulmonary disease, unspecified; Z79.4 Long term (current) use of insulin; Z79.82 Long term (current) use of aspirin; E78.5 Hyperlipidemia, unspecified
CPT/HCPCS: 36415; 36416; 80053; 82009; 82962; 83735; 84145; 84484; 85025; 85651; 86140; 93005; 93017; 93306; 93880; 96361; 96372; 96374; 99285; G0378; J1650; J1815; J7030; J7120; J9999

== ENCOUNTER → 2025-05-30 15:38 | Outpatient (BNVA) | payer OTHER, SELFPAY | PROVIDERS: PCP Nurse Practitioner Family; Visit Provider Internal Medicine | DX: E11.65 Type 2 diabetes mellitus with hyperglycemia (principal) | CPT/HCPCS: 80053; 80061; 82043; 83036 ==